=== PATIENT | male | born 1935 | race Caucasian/White ===

== ENCOUNTER 2016-10-25 11:08 | Inpatient (IN) | payer OTHER ==
[~2016-10-25] VITALS: Ht 185.4 cm; Wt 59.4 kg
[~2016-10-25 11:08] MED LIST: ALLERGY10 MG PO; CLARITIN10 MG PO; FERROUS SU220 MG/5 M PO; XALATAN 0.50 GTT/1 B OPH
--- NOTE | 2016-10-25 11:17 | ED MVC/FALL/TRAUMA COMPLAINT ---
History of Present Illness General Chief Complaint: Fall Stated Complaint: FALL Source: patient Exam Limitations: no limitations Vital Signs & Intake/Output Vital Signs & Intake/Output Vital Signs Date Time Temp Pulse Resp B/P Pulse O2 O2 Flow FiO2 Ox Delivery Rate 10/25 1357 98.5 80 18 109/58 95 Room Air 10/25 1229 Room Air 10/25 1211 99.5 87 16 102/52 95 Room Air Allergies Uncoded Allergies: SEASONAL (UNKNOWN 06/09/15) Reconcile Medications Ferrous Sulfate 220 MG/5 ML ROSEMAYR 5 ML PO DAILY ANEMIA (Reported) Triage Nurses Notes Reviewed? 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 ZAVALETA TODAY and which Dr. Martinez discussed with the event that occurred today which his oncologist stated that he did not look or feel well and advised patient to get evaluated however he adamantly refused this evaluation and after the appointment HE walking out of the office he suddenly became dizzy and lightheaded and which he subsequently lost his balance and fell to the left side of his body the ground and was staff emergently went to his aid denies any loss of consciousness or head strike. Patient states that symptoms lasted for approximate 1-2 minutes and have completely resolved. Patient was sent and brought in by ambulance from the office. Patient denies any pain from the episode (SHILA SCALES) Past History Medical History Any Pertinent Medical History? see below for history Neurological: NONE EENT: glaucoma Cardiovascular: NONE Respiratory: NONE Gastrointestinal: NONE Hepatic: NONE Renal: NONE Musculoskeletal: NONE Psychiatric: NONE Endocrine: NONE Blood Disorders: anemia Cancer(s): NONE DRESSAGE JUDGE/Reproductive: NONE Surgical History Surgical History: ANKLE SX Psychosocial History Who do you live with Spouse What is your primary language Estonian Family History Hx Contributory? No (SHILA SCALES) Review of Systems Review of Systems Constitutional: Reports: no symptoms. Eyes: Reports: no symptoms. Ears, Nose, Throat, Mouth: Reports: no symptoms. Respiratory: Reports: no symptoms. Cardiovascular: Reports: no symptoms. Gastrointestinal/Abdominal: Reports: no symptoms. Genitourinary: Reports: no symptoms. Musculoskeletal: Reports: no symptoms. Skin: Reports: no symptoms. Neurological/Psychological: Reports: no symptoms. All Other Systems: Reviewed and Negative (SHILA SCALES) Physical Exam Physical Exam General Appearance: no apparent distress, alert, cachetic Comments: HEENT: Normal EENT exam, extraocular motion intact, no nystagmus. Pupils equally round and reactive to light and accommodation. Nose is atraumatic. External auditory canal and Tympanic membranes clear. Pharynx normal. No swelling or edema. Neck: Supple, no lymphadenopathy, normal range of motion without pain or tenderness No central spinous tenderness Back: Nontender, no CVA tenderness. Full range of motion No central spinous tenderness Cardiovascular: Regular rate and rhythms no murmurs rubs or gallops, normal JVP Respiratory: Chest nontender. No respiratory distress.breath sounds clear to auscultation bilaterally Abdomen: Soft, nontender nondistended, no appreciable organomegaly. Normal bowel sounds. No ascites Extremity: No edema, no calf tenderness to palpation, normal and equal pulses. Bilateral upper extremity and lower extremity myotomes dermatomes intact Neuro: Alert oriented x3, motor sensory normal, cranial nerves II through XII grossly intact. Skin: No appreciable rash on exposed skin, skin is warm and dry. Psych: Mood and affect is normal, memory and judgment is normal. Normal steady gait noted Core Measures ACS in differential dx? Yes Severe Sepsis Present: No Septic Shock Present: No (SHILA SCALES) Progress Differential Diagnosis: aoritic dissection, abd injury, C/T/L spine injury, ext injury, ICH, pelvis injury, pnemothorax, spinal cord injury Diagnostic Imaging: Viewed by Me: Radiology Read. Radiology Impression: SEE COMMENTS CXR Impression: SEE COMMENTS Initial ED EK BPM NORMAL SINUS RHYTHM Comments: PATIENT: NICOLE SPEARS PRESENT AGE: 81 PATIENT ACCOUNT NO: [id number] : 36 LOCATION: [facility] ORDERING PHYSICIAN: SHILA ESPINOSA SERVICE DATE: 10/25/16 EXAM TYPE: RAD - XRY-CHEST XRAY, PA AND LATERAL EXAMINATION: XR CHEST CLINICAL INFORMATION: Fall COMPARISON: 07/18/2016 TECHNIQUE: AP and lateral views. FINDINGS: There is a redemonstrated chronic small pleural effusion, without change from 07/13/2016. There is hazy and patchy airspace opacity at the right lung base. There is a curvilinear density at the right apex, of uncertain etiology. No overt pulmonary edema. The cardiomediastinal contour is unremarkable. No acute osseous findings are seen. IMPRESSION: 1. Redemonstrated chronic small left pleural effusion. 2. Mild hazy/patchy right basilar opacity may reflect atelectasis or developing consolidation. 3. Curvilinear density at the right apex of uncertain etiology. This does not have the typical appearance for pneumothorax, though a trace pneumothorax is difficult to entirely exclude. If there is clinical concern for pneumothorax, an expiratory chest radiograph may be helpful. (ALFREDA ESPINOSA,SHILA) Plan of Care: Orders Procedure Date/time Status CBC WITHOUT DIFFERENTIAL 10/26 599 Active BASIC ELECTROLYTES PLUS BUN&CR 10/26 599 Active Regular Diet 10/25 D Active LACTIC ACID 10/25 1657 Active TRC EVALUATION (GEN) 10/25 1558 Active Pathway - chart 10/25 1558 Active House Staff 10/25 1558 Active URINALYSIS 10/25 1558 Active Code Status 10/25 1558 Active Saline Lock 10/25 1438 Active Misc Message 10/25 1438 Active ED Holding Orders 10/25 1438 Active Admit to inpatient 10/25 1438 Active Code Status 10/25 1438 Complete Patient Data 10/25 1419 Active Add-on Test (ER Only) 10/25 1357 Active LACTIC ACID 10/25 1357 Active LOWER RESPIRATORY CULTURE 10/25 1356 Active BLOOD CULTURE 10/25 1356 Active LACTIC ACID 10/25 1225 Complete Telemetry/Etymology Teacher 10/25 1134 Active FingerStick- Glucose 10/25 1134 Active TROPONIN LEVEL 10/25 1134 Complete MAGNESIUM 10/25 1134 Complete COMPREHENSIVE METABOLIC PANEL 10/25 1134 Complete CBC WITHOUT DIFFERENTIAL 10/25 1134 Complete EKG 10/25 1134 Active VTE Mechanical Prophylaxis 10/25 UNK Active Current Medications Sig/Gordon Start time Last Medication Dose Stop Time Status Admin Azithromycin 500 MG 1400 10/26 1400 AC (Zithromax) Sodium Chloride 250 ML (Normal Saline 0.9%) Ceftriaxone Sodium 1,000 MG 1400 10/26 1400 AC (Rocephin) Enoxaparin Sodium 40 MG 1600 10/25 1600 AC (Lovenox) Sodium Chloride 1,000 ML Q13H 10/25 1600 AC (Normal Saline 0.9%) 10/26 0459 Laboratory Tests 10/25/16 1225: Anion Gap 13, Estimated GFR > 60, BUN/Creatinine Ratio 21.1, Glucose 134 H, Lactic Acid 2.7 H, Calcium 8.9, Magnesium 2.1, Total Bilirubin 1.6 H, AST 52, ALT 32, Alkaline Phosphatase 106, Troponin I < 0.01, Total Protein 5.8 L, Albumin 3.1 L, Globulin 2.7, Albumin/Globulin Ratio 1.1, CBC w Diff NO MAN DIFF REQ, RBC 4.02 L, MCV 94.4 H, MCH 31.7 H, RDW 14.9 H, MPV 7.3 L, Gran % 80.9 H, Lymphocytes % 8.7 L, Monocytes % 10.0 H, Eosinophils % 0.1, Basophils % 0.3, Absolute Granulocytes 12.0 H, Absolute Lymphocytes 1.3, Absolute Monocytes 1.5 H, Absolute Eosinophils 0, Absolute Basophils 0.1, PUBS MCHC 33.6 Microbiology 10/25 1432 BLOOD: Blood Culture - RECD 10/25 1415 BLOOD: Blood Culture - RECD 10/25 1356 LOWER RESP: Respiratory Culture - ORD 10/25 1356 LOWER RESP: Gram Stain - ORD Patient on physical exam looks pale and cachectic in which there is concerns of a low-grade fever leukocytosis and concerns of pneumonia on x-ray. Patient has been complaining of general his weakness and fatigue and a cough in the past few days which patient will be admitted to [facility] and require IV antibiotics. I discussed disposition and plan with patient who agrees. Patient was able tolerate a meal in the emergency room and patient has nontender abdomen. (SHILA SCALES) Departure Departure Disposition: STILL A PATIENT Condition: Stable Clinical Impression Primary Impression: Pneumonia Secondary Impressions: Pre-syncope Referrals: PRANAY KELLER MD (PCP/Family) Departure Forms: Customer Survey General Discharge Information Admission Note Spoke With: LINDA ALTMAN MD Documentation of Exam: Documentation of any treatments & extenuating circumstances including Concerns Regarding Discharge (functional status, medication knowledge or non-compliance, living conditions, etc.) that warrant an admission rather than observation: [ Discussed patient with Dr. ALTMAN who agrees with [facility] admission for concerns of continued required pneumonia. Patient requires IV antibiotics, sputum and blood cultures currently are pending, outpatient treatment due to significant comorbidities and episode that occurred today and which outpatient treatment at this time would be medically harmful (SHILA SCALES) PA/PHYSICIAN ASSISTANT PRIMARY CARE Co-Sign Statement Statement: ED Attending supervision documentation- [x] I saw and evaluated the patient. I have also reviewed all the pertinent lab results and diagnostic results. I agree with the findings and the plan of care as documented in the PA's/PHYSICIAN ASSISTANT PRIMARY CARE's documentation. [] I have reviewed the ED Record and agree with the PA's/PHYSICIAN ASSISTANT PRIMARY CARE's documentation. [] Additions or exceptions (if any) to the PAs/PHYSICIAN ASSISTANT PRIMARY CARE's note and plan are summarized below: [] (FELIX PRESTON,SHELBIE Falcon) Critical Care Note Critical Care Note Critical Care Time: 30-74 min (SHILA SCALES)
--- NOTE | 2016-10-25 11:53 | NUR ---
PT RECIEVED TO [facility] , AWAKE, ALERT AND ORIENTED. DENIES CHEST PAIN OR SHORTNESS OF BREATH. STATES HE WAS AT CHEMOTHERAPY TODAY, FELT WEAK AND COLLAPSED. DENIES LOC
--- NOTE | 2016-10-25 12:11 | NUR ---
PT ATTACHED TO HEART MONITOR AND VITALS OBTAINED
--- NOTE | 2016-10-25 12:28 | NUR ---
PT GIVEN MEAL TRAY TO EAT
[2016-10-25 12:38] LABS: ABSOLUTE BASOPHIL COUNT 0.1 /CUMM (0.0-0.2); ABSOLUTE EOSINOPHIL COUNT 0 /CUMM (0.0-0.7); ABSOLUTE LYMPH COUNT 1.3 /CUMM (1.2-3.4); ABSOLUTE MONOCYTE COUNT 1.5 /CUMM (0.10-0.60); BASOPHIL % 0.3 % (0.0-2.0); EOSINOPHIL % 0.1 % (0-5); HEMATOCRIT 37.9 % (42-52); MEAN CORPUSCULAR HGB 31.7 PG (27.0-31.0); MEAN CORPUSCULAR HGB CONC 33.6 G/DL (33.0-37.0); MEAN CORPUSCULAR VOLUME 94.4 FL (80.0-94.0); MEAN PLATELET VOLUME 7.3 FL (7.4-10.4); PLATELET COUNT 159 /CUMM (130-400); RBC DISTRIBUTION WIDTH 14.9 % (11.5-14.5); RED BLOOD CELL CT 4.02 /CUMM (4.70-6.10); WHITE BLOOD CELL COUNT 14.9 /CUMM (4.8-10.8)
[2016-10-25 12:43] LABS: GRANULOCYTE % 80.9 % (42.2-75.2)
--- NOTE | 2016-10-25 13:01 | NUR ---
PT SENT FOR XRAY
--- NOTE | 2016-10-25 13:42 | RADIOLOGY REPORT ---
EXAMINATION: XR CHEST CLINICAL INFORMATION: Fall COMPARISON: 07/18/2016 TECHNIQUE: AP and lateral views. FINDINGS: There is a redemonstrated chronic small pleural effusion, without change from 07/13/2016. There is hazy and patchy airspace opacity at the right lung base. There is a curvilinear density at the right apex, of uncertain etiology. No overt pulmonary edema. The cardiomediastinal contour is unremarkable. No acute osseous findings are seen. IMPRESSION: 1. Redemonstrated chronic small left pleural effusion. 2. Mild hazy/patchy right basilar opacity may reflect atelectasis or developing consolidation. 3. Curvilinear density at the right apex of uncertain etiology. This does not have the typical appearance for pneumothorax, though a trace pneumothorax is difficult to entirely exclude. If there is clinical concern for pneumothorax, an expiratory chest radiograph may be helpful.
--- NOTE | 2016-10-25 13:56 | NUR ---
SEEN BY DR WASHINGTON AND JESÚS GANT. PT AGREES TO PLAN TO ADMIT TO HOSPITAL FOR TREATMENT OF PNEUMONIA
--- NOTE | 2016-10-25 14:23 | NUR ---
BLOOD CULTURES DRAWN.
--- NOTE | 2016-10-25 14:24 | NUR ---
CRITICAL TEST RESULTS [id number] NICOLE SPEARS 81 M TESTS AND RESULTS: LACTIC ACID 2.7 Results received and read back by: SARTHAK BURKS Results received date and time: 10/25/16 1424 The following provider was notified of the results, and read the results back: SHILA ESPINOSA Notified date and time: 10/25/16 at 1424
--- NOTE | 2016-10-25 14:40 | History & Physical ---
GISELLE PRESTON,SULTANA 10/25/16 1440: General Information and HPI MD Statement: I have seen and personally examined NICOLE SPEARS and documented this H&P. The patient is a 81 year old M who was sent to the emergency department from Dr. Costa's office after sustaining a fall. Source of Information: patient Exam Limitations: no limitations History of Present Illness: 81 yo M with past medical history of follicular lymphoma status post chemotherapy (following Dr. Chen), and anemia, was sent to the emergency department from Dr. Chen's office earlier today after sustaining a fall injury. According to patient, he has been feeling weak on and off, but since past 2 weeks his weakness has increased. He also had cough since past 2 weeks- which was initially productive with "orange" colored sputum progressively getting "white", associated with shortness of breath. The symptoms were progressively worsening, and he was due his follow-up with Dr. Chen today, where he mentioned his symptoms but refused this suggestion to have it evaluated in the emergency department. As he was walking to sign out from the office, he tried sitting on a sofa but due to weakness he slightly "missed" it, and fell, on his left side of his body. He denies loss of consciousness, head strike, dizziness, palpitation, chest pain, nausea, vomiting, lightheadedness. Physician's office staff then referred him to the emergency department. He has been following Dr. Chen for follicular lymphoma and chemotherapy. The condition was diagnosed 2 years ago and he has received around 6 cycles of chemotherapy since then, last one being 3 months ago. Allergies/Medications Allergies: Uncoded Allergies: SEASONAL (UNKNOWN 06/09/15) Home Med list Ferrous Sulfate 220 MG/5 ML ROSEMARY 5 ML PO DAILY ANEMIA (Reported) Past History Travel History Traveled to [place] past 21 day No Medical History Neurological: NONE EENT: glaucoma Cardiovascular: NONE Respiratory: NONE Gastrointestinal: NONE Hepatic: NONE Renal: NONE Musculoskeletal: NONE Psychiatric: NONE Endocrine: NONE Blood Disorders: anemia Cancer(s): leukemia MEASUREMENT SPECIALIST/Reproductive: NONE Surgical History Surgical History: ANKLE SX Past Family/Social History Psychosocial History Where do you live? Home Who Do You Live With? spouse, grandchildren Primary Language: Emirati ETOH Use: occasional use Illicit Drug Use: denies illicit drug use Functional Ability ADLs Independent: dressing, eating, toileting, bathing. Ambulation: independent Employment History Employment Unemployed Review of Systems Review of Systems Constitutional: Reports: see HPI, weakness. Denies: chills, diaphoresis, fever, unexplained weight loss. EENTM: Reports: no symptoms. Cardiovascular: Reports: see HPI, orthopena. Denies: chest pain, edema, palpitations, peripheral edema, syncope. Respiratory: Reports: see HPI, cough, orthopnea, short of breath, sputum production. Denies: hemoptysis, stridor, wheezing. GI: Reports: no symptoms. Genitourinary: Reports: no symptoms. Musculoskeletal: Reports: see HPI (weakness all over the body). Skin: Reports: no symptoms. Neurological/Psychological: Reports: no symptoms. Hematologic/Endocrine: Reports: no symptoms. All Other Systems: Reviewed and Negative Exam & Diagnostic Data Last 24 Hrs of Vital Signs/I&O Vital Signs Date Time Temp Pulse Resp B/P Pulse O2 O2 Flow FiO2 Ox Delivery Rate 10/25 1357 98.5 80 18 109/58 95 Room Air 10/25 1229 Room Air 10/25 1211 99.5 87 16 102/52 95 Room Air Intake & Output 10/25 1600 10/25 0800 10/25 0000 Intake Total Output Total Balance Patient 59.874 kg Weight Last 24 Hrs of Labs/Mando: Laboratory Tests 10/25/16 1225: Anion Gap 13, Estimated GFR > 60, BUN/Creatinine Ratio 21.1, Glucose 134 H, Lactic Acid 2.7 H, Calcium 8.9, Magnesium 2.1, Total Bilirubin 1.6 H, AST 52, ALT 32, Alkaline Phosphatase 106, Troponin I < 0.01, Total Protein 5.8 L, Albumin 3.1 L, Globulin 2.7, Albumin/Globulin Ratio 1.1, CBC w Diff NO MAN DIFF REQ, RBC 4.02 L, MCV 94.4 H, MCH 31.7 H, RDW 14.9 H, MPV 7.3 L, Gran % 80.9 H, Lymphocytes % 8.7 L, Monocytes % 10.0 H, Eosinophils % 0.1, Basophils % 0.3, Absolute Granulocytes 12.0 H, Absolute Lymphocytes 1.3, Absolute Monocytes 1.5 H, Absolute Eosinophils 0, Absolute Basophils 0.1, PUBS MCHC 33.6 Microbiology 10/25 1432 BLOOD: Blood Culture - RECD 10/25 1415 BLOOD: Blood Culture - RECD 10/25 1356 LOWER RESP: Respiratory Culture - ORD 10/25 135 LOWER RESP: Gram Stain - ORD Diagnostic Data EKG Results Sinus rhythm with rate 89, no ST-T changes CXR Results IMPRESSION: 1. Redemonstrated chronic small left pleural effusion. 2. Mild hazy/patchy right basilar opacity may reflect atelectasis or developing consolidation. 3. Curvilinear density at the right apex of uncertain etiology. This does not have the typical appearance for pneumothorax, though a trace pneumothorax is difficult to entirely exclude. If there is clinical concern for pneumothorax, an expiratory chest radiograph may be helpful. DICTATED BY: ANDRAE VALADEZ MD DATE/TIME DICTATED:10/25/161326 PETROLEUM REFINING FIRER:VIJAYA DATE/TIME TRANSCRIBED:10/25/161326 Other Results Physical examnination: General: thin buit patient not in distress Head: Normocephalic, atraumatic Eyes: Pupils normal in size, regular, reacting to light and accommodation, EOM normal Ears: B/l normal on inspection Nose: Normal on inspection Throat/mouth: Moist mucosa Neck: Supple, full range of motion, no thyromegaly Heart: Regular rate, regular rhythm Lung: Bilateral crepitations heard, more over the right lung field, no wheezes heard Abd: Soft, non-tender, no distention appreciated Back: Normal range of motion Extremities: Normal knee exam bilaterally, no pedal edema, Distal neurovascular intact Neurologic: Alert, oriented x3, Cranial exam grossly intact, Speech is clear and coherent Skin: Warm and dry Psychiatric: Calm, cooperative, coherant Assessment/Plan Assessment: 81 yo M with past medical history of follicular lymphoma status post chemotherapy (following Dr. Chen), and anemia, was sent to the emergency department from Dr. Chen's office earlier today after sustaining a fall injury , which he attributes to weakness. In the emergency department his vitals were: Temperature 99.5, pulse 87, respirations 16, blood pressure 102/52, oxygen saturation 95% on room air. #Community-acquired pneumonia The symptoms of cough with sputum production, shortness of breath with radiologic finding of right basilar opacity is suggestive of community-acquired pneumonia. -Regular monitoring to make sure that oxygen saturation is above 92% -IV antibiotics to cover bacteria for complete record pneumonia -Follow-up blood cultures and sputum cultures -Follow-up in rapid influenza test, urine Legionella and Streptococcus test -Can consider pulmonary consultation if patient's symptoms does not improve despite current treatment plan #Folliclar lymphoma Follicular lymphoma was diagnosed 2 years ago, the patient received 6 cycles of chemotherapy with the latest one being 6 months ago according to the patient himself. -Oncology notification with Dr. Chen (his oncologist) will be placed for the morning as a courtesy #History of Anemia Not present, currently Hb 14.9 #Protein calorie Malnutrition -Patient's BMI is 16.9 kg/m, that is malnutrition with albumin 3.1 and total protein 5.8 which are both low. -Nutrition consult can be planned for the patient #Diet: Regular diet #DVT prophylaxis: Lovenox #CODE STATUS: DO NOT RESUSCITATE/ DO NOT INTUBATE As Ranked By This Provider Problem List: 1. CAP (community acquired pneumonia) 2. Follicular lymphoma 3. Anemia Core Measures/Miscellaneous Acute Coronary Syndrome ACS Diagnosis: No Cerebrovascular Accident CVA/TIA Diagnosis: No Congestive Heart Failure CHF Diagnosis: No Venous Thromboembolism VTE Risk Factors: Age > 40, Cancer/chemo/oth therapy, Smoking VTE Prophylaxis Ordered Inpt: [facility] prophylaxis d/t: No contraindications No VTE Pharm Prophylaxis d/t: No contraindications VTE Diagnosis: No VTE Type: NONE VTE Confirmed by (Test): NONE Severe Sepsis Severe Sepsis Present: No Septic Shock Septic Shock Present: No Miscellaneous Documentation Attending Case Discussed With: PHILLIP ROBERTS MD Primary Care Physician: PRANYA KELLER MD Patient sees these Specialists Internal medicine Hematology oncology Level of Patient Care: General Medicine GAURANG KELLER MD 10/25/16 2150: Resident Review Statement Resident Statement: examined this patient, discussed with summer internship, agreed with summer internship, discussed with family, reviewed EMR data (avail) Other Findings: 81 yo M with past medical history of follicular lymphoma diagnosed 2 yrs ago status post chemotherapy (following Dr. Chen), last one about 3 month ago and anemia, was sent to the emergency department from Dr. Chen's office earlier today after sustaining a fall injury. Pt has been c/o weakness and shortness worse form his baseline. Otherwise denies fever, chills, sick contacts. O/e alert, oriented, comfortable CVS: S1, S2 regular RS: b/l BS present. Crackles present on the right side ABd: Soft, NT,ND, BS present Ext: No pedal edema. Assessment and plan: 89 yrs old male with PMHx of follicular lymphoma admitted with weakness, worsening shortness of breath with cough. X ray suggestive of consoidation. Labs showed increase WBC's with lactic acidosis. 1. Severe sepsis ( lactic acidosis > 2mm/l with new infection source) 2. Fall secondary to weakness vs orthostatic hypotension 3. Hyponatremia 4. Isolated elevation of bilirubin could be due to dehydration 5. Follicular lymphoma Pt admitted to floor. VItals stable on admission Start abx for CAP pending cultures. We will check UA Start IV fluids @ 75 cc/hr Will check orthostatic vitals Will add on serum osmolarity and further work up based on osm. UA after IV fluids will be of no value to assess hyponatremia. TRC nebs DVT ppx with Lovenox DNR/DNI PHILLIP ROBERTS MD 10/26/16 1235: Attending MD Review Statement Attending Statement Attending MD Statement: examined this patient, discuss w/resident/PA/FUR LINER, agreed w/resident/PA/FUR LINER, reviewed EMR data (avail) Attending Assessment/Plan: 81M PMH follicular lymphoma last chemotherapy 3 months ago sent from loan teller office for generalized weakness and productive cough, found to have CAP on CXR. Patient appears weak and sleepy. Afebrile. BP 100/48 today, given 2L NS. Will continue IV hydration, Ceftriaxone and Azithromycin, follow cultures, check TFTs, Vitamin D, PT eval.
--- NOTE | 2016-10-25 15:26 | NUR ---
SEEN BY HOUSE STAFF. PT RESTING COMFORTABLY IN [facility]. NOW AT BEDSIDE
--- NOTE | 2016-10-25 15:27 | NUR ---
RT CALLED TO OBTAIN LOWER RESP CULTURE. PT WITH NON PRODUCTIVE COUGH
--- NOTE | 2016-10-25 16:14 | PN- Student ---
Subjective Subjective: Chief Complaint: Fall Hx of Present Illness: The patient is a 81 y/o male with a history of lymphoma. He was brought to the ER in an Ambulance due to a fall. The patient states that he was going to sit down on his couch and suddenly "he lost it" and didn't reach it, hence falling on his left side. The patient denies any loss of consciousness during the incident and also denies that he felt any dizzines as well. On evaluation he didn't expressed any type of pain or discomfort. He also complained if having a productive cough which started a few days ago. He described the initial sputum as orange in color but stated that currently it is clear in appareance. No audible stridor or wheezes were perceived while taking the history. Allergies; None Current Medications; Ferrous Sulfate (220 mg/5 mL 5 mL PO Daily for Anemia) Latanoprost (50 GTT/1 Bot GTT for Glaucoma) Loratadine (10 mg) Past Medical Hx: Eyes- Glaucoma Heme/Onc- Lymphoma The patient has a significant cancer Hx (Lymphoma) and has received around half a dozen rounds of chemotherapy. Social/Diet Hx: Smoking Hx- The patient smoked around 70 years 6 cigars/day. EtOH- Former heavy drinker but now just consumes just 3 beers on Sundays. 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 Physical Activity- The patient doesn't use any type of walking-assiting device. Objective Objective: Physical Examination: General: Patient is 81 y/o M that presented to the ER with mild respiratory distress. The patient is in appropriate attire, under-noursihed (BMI 16.9) and alert. H: Not assessed E: Not assessed E: Not assessed N: Not assessed T: Not assessed Neck: Not assessed Mouth: Not assessed. Lungs: Crackles were heard in the R lung at the R paraspinal area. CV: Normal S1, Normal S2, no murmurs. GI: Not assessed Genitourinary: Not assessed MSK: Not assessed Upper Extremities: Not assessed Lower Extremities: No signs of edema. Neurological: Normal Speech. Additional Notes: Awareness should be given to the cancerous state of the patient. Monitor potential cachexia, anorexia and muscle weakness. Results Results: Laboratory Tests 10/25/16 1225: Anion Gap 13, Estimated GFR > 60, BUN/Creatinine Ratio 21.1, Glucose 134 H, Lactic Acid 2.7 H, Calcium 8.9, Magnesium 2.1, Total Bilirubin 1.6 H, AST 52, ALT 32, Alkaline Phosphatase 106, Troponin I < 0.01, Total Protein 5.8 L, Albumin 3.1 L, Globulin 2.7, Albumin/Globulin Ratio 1.1, CBC w Diff NO MAN DIFF REQ, RBC 4.02 L, MCV 94.4 H, MCH 31.7 H, RDW 14.9 H, MPV 7.3 L, Gran % 80.9 H, Lymphocytes % 8.7 L, Monocytes % 10.0 H, Eosinophils % 0.1, Basophils % 0.3, Absolute Granulocytes 12.0 H, Absolute Lymphocytes 1.3, Absolute Monocytes 1.5 H, Absolute Eosinophils 0, Absolute Basophils 0.1, PUBS MCHC 33.6 Microbiology 10/25 1432 BLOOD: Blood Culture - RECD 10/25 1415 BLOOD: Blood Culture - RECD 10/25 1356 LOWER RESP: Respiratory Culture - ORD 10/25 1356 LOWER RESP: Gram Stain - ORD Vital Signs Date Time Temp Pulse Resp B/P Pulse O2 O2 Flow FiO2 Ox Delivery Rate 10/25 1357 98.5 80 18 109/58 95 Room Air 10/25 1229 Room Air 10/25 1211 99.5 87 16 102/52 95 Room Air Intake & Output 10/25 1600 10/25 0800 10/25 0000 Intake Total Output Total Balance Patient 132 lb Weight Assessment/Plan Assessment: Patient is a 81 y/o M with a PMHx of Lymphoma. The patient came in to the ER due to a fall that happened at 11:30 am of the admitance date (10/25/16). Vital signs are within the reference values, the patient is afebrile and is only presenting mild respiratory distress. The patient also complaint of SOB and productive cough that has been ongoing for several days. Patient Impression: The patient is currently on mild respiratory distress and in preparation to be admitted for Tx for Community-Acquired Pneumonia. Diagnosis: Community-Acquired Pneumonia Problem List: 1) SOB 2) Fall surveilance 3) Possible weakness due to cancerous course Plan: - Admitt the patient. - Administer Antibiotics; Azithromycin 500mg IV per day. - Contact Physical Therapist to assess gait and work up on fall prevention. - If Oxygen saturation drops and patient becomes hypoxic administer Oxygen via Nasal Canula (3 mL/min). - Schedule Reports Developer consult to assess BMI and current dietetic status. - Oncologic consultation and follow up with oncologist (Dr. Costa). - Follow up on Blood and Sputum Cultures.
--- NOTE | 2016-10-25 16:59 | NUR ---
LEFT FOREARM IV INFILTRATED AND FOREARM AND ELBOW AREA ARE RED AND EDEMATOUS. IV STOPPED AND WARM COMPRESS APPLIED
--- NOTE | 2016-10-25 17:05 | NUR ---
WARM COMPRESS PLACED ON LEFT ARM IV INFILTRATE
--- NOTE | 2016-10-25 17:44 | NUR ---
LEFT ARM COMPRESS RE WARMED. INFILTRATE WITH DECREASED REDNESS AND EDEMA NOTED. PT STATES IT IS LOOKING BETTER TO HIM AND LESS PAINFUL
--- NOTE | 2016-10-25 18:30 | NUR ---
MOVED TO ROOM 9.
--- NOTE | 2016-10-25 18:31 | NUR ---
PT WILL GO TO ROOM 230-1, IS NOT READY YET
--- NOTE | 2016-10-25 18:41 | NUR ---
PT INFORMED HE IS BEING MOVED TO INPATIENT ROOM. PT REQUESTING TO STAY DRESSED IN STREET CLOTHES UNTIL HE GETS TO ROOM
--- NOTE | 2016-10-25 19:22 | NUR ---
REPORT CALLED TO SECOND FLOOR. SHARIF ROTHMAN
--- NOTE | 2016-10-25 19:43 | NUR ---
TRANSPORT HERE FOR PT
[2016-10-25 20:23] VITALS: BP 128/60
--- NOTE | 2016-10-25 22:20 | NUR ---
PT ARRIVED TO FLOOR AT 1950. VSS, PT COMFORTABLE. LACTIC ACID DRAWN AND CAME BACK 3.4. MD REDDY NOTIFIED. PT BOLUSED WITH 1000 ML OF FLUIDS AND RECEIVING HYDRATION OF 75 ML/HR OF NS. VS CURRENTLY STABLE
[2016-10-25 22:47] VITALS: BP 128/60
[2016-10-26] VITALS (7 sets, daily range): BP systolic 96–118; BP diastolic 36–50
--- NOTE | 2016-10-26 06:50 | PN- Housestaff ---
GISELLE PRESTON,SULTANA 10/26/16 0650: Subjective Follow-up For: Weakness, community-acquired pneumonia Complaints: weakness Subjective: I followed up and examined the patient today. He was lying on the bed, was not in any acute distress, but seemed listless. When questioned, he said his weakness was just the same and not better or worse. He had not come out of the bed, and had refused to check orthostatic blood pressures either. Blood pressure was low this morning, but he did not have any dizziness, headache , chest pain, shortness of breath. Review of Systems Constitutional: Reports: see HPI, malaise, weakness. EENTM: Reports: no symptoms. Cardiovascular: Reports: no symptoms. Respiratory: Reports: cough, sputum production. Gastrointestinal: Reports: no symptoms. Genitourinary: Reports: no symptoms. Musculoskeletal: Reports: no symptoms. Skin: Reports: no symptoms. Neurological/Psychological: Reports: no symptoms. Hematologic/Endocrine: Reports: no symptoms. Objective Last 24 Hrs of Vital Signs/I&O Vital Signs Date Time Temp Pulse Resp B/P Pulse O2 O2 Flow FiO2 Ox Delivery Rate 10/26 1449 98.2 96 18 98/42 92 Room Air 10/26 1446 98.9 92 18 96/50 93 Room Air 10/26 1027 110/48 10/26 0928 98 18 110/48 92 Room Air 10/26 0824 98.6 96 18 102/44 90 Room Air 10/26 0711 98.6 102 20 118/50 93 Room Air 10/25 2247 97.5 92 20 128/60 95 Room Air 10/25 2023 97.4 92 20 128/60 95 Room Air 10/25 1852 Nasal 2.0L Cannula 10/25 1831 98.7 83 18 96/50 98 Room Air Intake & Output 10/26 1600 10/26 0800 10/26 0000 Intake Total 4300 2700 Output Total 200 Balance 4300 2500 Intake, IV 2500 2400 Intake, Oral 1800 300 Number 1 Bowel Movements Output, Urine 200 Patient 59.421 kg 59.874 kg Weight Physical Exam General Appearance: Alert, Oriented X3, Cooperative, No Acute Distress, lethargic, thin built Other Physical Findings: Physical examnination: General: thin buit patient not in distress Head: Normocephalic, atraumatic Eyes: Pupils normal in size, regular, reacting to light and accommodation, EOM normal Ears: B/l normal on inspection Nose: Normal on inspection Throat/mouth: Moist mucosa Neck: Supple, full range of motion, no thyromegaly Heart: Regular rate, regular rhythm Lung: Bilateral crepitations heard, more over the right lung field, no wheezes heard Abd: Soft, non-tender, no distention appreciated Back: Normal range of motion Extremities: Normal knee exam bilaterally, no pedal edema, Distal neurovascular intact Neurologic: Alert, oriented x3, Cranial exam grossly intact, Speech is clear and coherent Skin: Warm and dry Psychiatric: Calm, cooperative, coherant Current Medications: Current Medications Sig/Gordon Start time Last Medication Dose Route Stop Time Status Admin Albuterol Sulfate 3 ML Q4-PRN PRN 10/25 1900 AC INH Azithromycin 500 MG 1400 10/26 1400 AC 10/26 Sodium Chloride 250 ML IV 1236 Ceftriaxone Sodium 1,000 MG 1400 10/26 1400 AC 10/26 IV 1236 Dextrose/Sodium 1,000 ML Q13H 10/26 1330 AC 10/26 Chloride IV 1427 Enoxaparin Sodium 0 .STK-MED ONE 10/25 1839 DC SC Enoxaparin Sodium 40 MG 1600 10/25 1600 AC 10/26 SC 1647 Ferrous Sulfate 325 MG DAILY 10/26 1000 AC 10/26 PO 0833 Patient Medication 1 ED .STK-MED ONE 10/26 1344 DC Teaching ED 10/26 1345 Sodium Chloride 1,000 ML BOLUS ONE 10/26 0930 DC 10/26 IV 10/26 1029 0933 Sodium Chloride 1,000 ML BOLUS ONE 10/26 0830 DC 10/26 IV 10/26 0929 0832 Sodium Chloride 1,000 ML BOLUS ONE 10/25 2215 DC 10/25 IV 10/25 2314 2217 Sodium Chloride 1,000 ML Q13H 10/25 1600 DC 10/25 IV 10/26 0459 2014 Last 24 Hrs of Lab/Mando Results Last 24 Hrs of Labs/Mics: Laboratory Tests 10/26/16 0600: Anion Gap 12, Estimated GFR > 60, BUN/Creatinine Ratio 20.0, CBC w Diff NO MAN DIFF REQ, RBC 3.22 L, MCV 94.9 H, MCH 32.1 H, RDW 15.1 H, MPV 7.8, Gran % 72.9, Lymphocytes % 16.0 L, Monocytes % 10.8 H, Eosinophils % 0, Basophils % 0.3, Absolute Granulocytes 8.6 H, Absolute Lymphocytes 1.9, Absolute Monocytes 1.3 H, Absolute Eosinophils 0, Absolute Basophils 0, PUBS MCHC 33.8 10/26/16 0223: Lactic Acid Cancelled 10/25/16 2335: Lactic Acid 1.5 10/25/16 2145: Urine Color YEL, Urine Clarity CLEAR, Urine pH 6.0, Ur Specific [place] 1.025, Urine Protein TRACE H, Urine Ketones NEG, Urine Nitrite NEG, Urine Bilirubin NEG, Urine Urobilinogen 0.2, Ur Leukocyte Esterase NEG, Ur Microscopic SEDIMENT EXAMINED, Urine RBC 3-5, Urine WBC 5-10 H, Ur Epithelial Cells MOD H, Urine Crystals RARE [place], Hyaline Casts RARE H, Urine Hemoglobin SMALL H, Urine Glucose NEG 10/25/16 2105: Lactic Acid 3.4 H 10/25/16 1747: Lactic Acid 1.5 Microbiology 10/26 1514 URINE ROUT: Legionella Antigen - COLB 10/26 151 URINE ROUT: Streptococcus pneumoniae Antigen (M - COLB Assessment/Plan Assessment: 81 yo M with past medical history of follicular lymphoma status post chemotherapy (following Dr. Chen), and anemia, was sent to the emergency department from Dr. Chen's office earlier today after sustaining a fall injury , which he attributes to weakness. In the emergency department his vitals were: Temperature 99.5, pulse 87, respirations 16, blood pressure 102/52, oxygen saturation 95% on room air. He is being managed in the general medical floor for the following issues: #Community-acquired pneumonia The symptoms of cough with sputum production, shortness of breath with radiologic finding of right basilar opacity is suggestive of community-acquired pneumonia. -Regular monitoring to make sure that oxygen saturation is above 92% -IV antibiotics to cover bacteria for complete record pneumonia Ceftriaxone, and Azithromycin -Follow-up blood cultures and sputum cultures -Follow-up in rapid influenza test, urine Legionella and Streptococcus test -Can consider pulmonary consultation if patient's symptoms does not improve despite current treatment plan #Folliclar lymphoma Follicular lymphoma was diagnosed 2 years ago, the patient received 6 cycles of chemotherapy with the latest one being 6 months ago according to the patient himself. -Oncology notification with Dr. Chen (his oncologist) was placed for the morning as a courtesy. #Hypotension Patient had an episode of blood pressure 96/50 this morning, to which serially 1 L normal saline and again 1 L normal saline was given as a bolus IV and recheck blood pressure was 98/42 with a heart rate of 96. Patient does not have any symptoms, has been feeding modestly, although fluid intake is adequate. -Question remains whether the patient's blood pressure is always on the lower range. -IV fluid with D5 half normal saline has been started at 75 mL per hour, plan to continue it #History of Anemia Currently 10.3 from 12.7 -no obvious source of bleeding, needs workup if still decreasing in tomorrow's labs. Including but not limited to [place]. -Check CBC tomorrow. #Protein calorie Malnutrition -Patient's BMI is 16.9 kg/m, that is malnutrition with albumin 3.1 and total protein 5.8 which are both low. -Nutrition consult was placed, needs follow-up #Diet: Regular diet #DVT prophylaxis: Lovenox #CODE STATUS: DO NOT RESUSCITATE/ DO NOT INTUBATE Problem List: 1. CAP (community acquired pneumonia) 2. Follicular lymphoma 3. Hypotension 4. 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 Patient appears weak and sleepy. Afebrile. BP 100/48 today, given 2L NS. Will continue IV hydration, Ceftriaxone and Azithromycin, follow cultures, check TFTs, Vitamin D, PT eval.
[2016-10-26 08:02] LABS: ABSOLUTE BASOPHIL COUNT 0 /CUMM (0.0-0.2); ABSOLUTE EOSINOPHIL COUNT 0 /CUMM (0.0-0.7); ABSOLUTE GRANULOCYTE CT 8.6 /CUMM (1.4-6.5); ABSOLUTE LYMPH COUNT 1.9 /CUMM (1.2-3.4); ABSOLUTE MONOCYTE COUNT 1.3 /CUMM (0.10-0.60); BASOPHIL % 0.3 % (0.0-2.0); EOSINOPHIL % 0 % (0-5); GRANULOCYTE % 72.9 % (42.2-75.2); MEAN CORPUSCULAR HGB 32.1 PG (27.0-31.0); MEAN CORPUSCULAR HGB CONC 33.8 G/DL (33.0-37.0); MEAN CORPUSCULAR VOLUME 94.9 FL (80.0-94.0); MEAN PLATELET VOLUME 7.8 FL (7.4-10.4); PLATELET COUNT 110 /CUMM (130-400); RBC DISTRIBUTION WIDTH 15.1 % (11.5-14.5); RED BLOOD CELL CT 3.22 /CUMM (4.70-6.10); WHITE BLOOD CELL COUNT 11.7 /CUMM (4.8-10.8)
--- NOTE | 2016-10-26 08:26 | NUR ---
THIS RN RETOOK PATIENTS VITAL SIGNS [facility] NOTIFIED THAT PT'S BP IS LOW. VITALS AT THIS TIME ARE 102/44 BP, 96 HR, 18RR, 98.6 TEMP, 90% RA. ATTEMPTED TO DO ORHTOSTATIC VITALS BUT PATIENT DOES NOT WANT TO GET UP AT THIS TIME AND VERBALIZES WEAKNESS. DR. LAZARO MERLOS NOTIFIED AND AT THE BEDSIDE AT THIS TIME. PER GAURANG, BOLUS PATIENT WITH 1 LITER OF NS AND FOLLOW CLOSELY. WILL RECHECK BP AFTER BOLUS. WILL MONITOR PATIENT.
[2016-10-26 08:50] LABS: HEMATOCRIT 30.5 % (42-52)
--- NOTE | 2016-10-26 09:30 | NUR ---
FIRST BOLUS (1L) NS FINISHED. DR. LAZARO MERLOS NOTIFIED THAT PT'S BP AT THIS TIME IS 110/48, 92RA 98HR. PATIENT DENIES DIZZINESS, N/V. NO CHANGE IN MENTAL STATUS AT THIS TIME. PER MD, TO GIVE ANOTHER BOLUS AND RECHECK BP. IN THE MEANTIME, WILL FOLLOW PATIENT CLOSELY FOR ANY S/S OF OVERLOAD.
--- NOTE | 2016-10-26 23:02 | RADIOLOGY REPORT ---
EXAMINATION: XR PORTABLE CHEST CLINICAL INFORMATION: Fever. Increasing oxygen requirement. COMPARISON: Chest x-ray 10/25/2016., 07/20/2015 CT of chest 07/18/2016 TECHNIQUE: Portable view of the chest was obtained. FINDINGS: Chronic volume loss of the left hemithorax stable since prior exam. There is persistent chronic density at the left lung base due to a left pleural effusion as seen on CT of chest 07/18/2016.. The right costophrenic angle is now also blunted due to a small right pleural effusion. Increased pulmonary vascularity centrally new since prior exam. Hazy opacity right lung base probably due to the effusion and increased vascularity but a subtle right basilar infiltrate not excluded. IMPRESSION: 1. Chronic density left lung base due to left pleural effusion. 2. New small right pleural effusion. 3. Increased central pulmonary vascularity. 4. Hazy opacity right lung base could be due to the right pleural effusion and increased vascularity but a subtle right basilar infiltrate not excluded.
--- NOTE | 2016-10-26 23:03 | NUR ---
BP 100/36 PER MST, RECHECKED AT 120/34, AFIBRILE, BUT WARM TO TOUCH. RECTAL TEMP OF 100.8. DR. AVALOS MADE AWARE AND PER PT ASKED TO CALL DR. CAIN, PT'S DOCTOR FROM [place]. NEW ORDERS FOR SPUTUM SAMPLE AND CXR. O2 ALSO DECREASED TO 89% ON RA. O2 INITATED AT 2L/MIN NC WITH 92 % O2 SAT. PT RESTING WITH EYES CLOSED, ASYMPTOMATIC. CONT TO MONITOR RESPIRATORY STATUS.
[2016-10-27 06:13] VITALS: BP 100/34
[2016-10-27 08:00] LABS: ABSOLUTE BASOPHIL COUNT 0 /CUMM (0.0-0.2); ABSOLUTE EOSINOPHIL COUNT 0 /CUMM (0.0-0.7); ABSOLUTE GRANULOCYTE CT 5.5 /CUMM (1.4-6.5); ABSOLUTE LYMPH COUNT 1.2 /CUMM (1.2-3.4); ABSOLUTE MONOCYTE COUNT 0.9 /CUMM (0.10-0.60); BASOPHIL % 0.3 % (0.0-2.0); EOSINOPHIL % 0.1 % (0-5); GRANULOCYTE % 71.3 % (42.2-75.2); HEMATOCRIT 27.2 % (42-52); MEAN CORPUSCULAR HGB 32.5 PG (27.0-31.0); MEAN CORPUSCULAR HGB CONC 34.8 G/DL (33.0-37.0); MEAN CORPUSCULAR VOLUME 93.3 FL (80.0-94.0); MEAN PLATELET VOLUME 8.2 FL (7.4-10.4); PLATELET COUNT 91 /CUMM (130-400); RBC DISTRIBUTION WIDTH 14.9 % (11.5-14.5); RED BLOOD CELL CT 2.92 /CUMM (4.70-6.10); WHITE BLOOD CELL COUNT 7.7 /CUMM (4.8-10.8)
--- NOTE | 2016-10-27 09:56 | PN- Housestaff ---
SLOAN ROSENBERG 10/27/16 0956: Subjective Follow-up For: CAP follicular lymphoma Subjective: seen and examined patient, does not offer any complaints. Denies chills, chest pain, shortness of breath. Review of Systems Constitutional: Denies: chills, diaphoresis, fever, malaise, weakness, unexplained weight loss. Cardiovascular: Denies: chest pain, edema, orthopena, palpitations, peripheral edema, syncope. Respiratory: Denies: cough, hemoptysis, orthopnea, short of breath, sputum production, stridor, wheezing. Objective Last 24 Hrs of Vital Signs/I&O Vital Signs Date Time Temp Pulse Resp B/P Pulse O2 O2 Flow FiO2 Ox Delivery Rate 10/27 0848 91 Nasal 2.0L Cannula 10/27 06 98.7 82 20 100/34 92 Room Air 10/27 0000 Nasal 2.0L Cannula 10/26 2212 100.8 90 18 100/36 94 Room Air 10/26 1449 98.2 96 18 98/42 92 Room Air 10/26 1446 98.9 92 18 96/50 93 Room Air Intake & Output 10/27 1600 10/27 0800 10/27 0000 Intake Total 240 Output Total 102 Balance 138 Intake, Oral 240 Number 1 Bowel Movements Output, Stool 2 Output, Urine 100 Physical Exam General Appearance: Alert, Oriented X3, Cooperative, No Acute Distress Cardiovascular: Regular Rate, Normal S1, Normal S2 Lungs: decreased breath sound ln left lower area Extremities: No Edema Current Medications: Current Medications Sig/Gordon Start time Last Medication Dose Route Stop Time Status Admin Albuterol Sulfate 3 ML Q4-PRN PRN 10/25 1900 AC INH Azithromycin 500 MG 1400 10/26 1400 AC 10/26 Sodium Chloride 250 ML IV 1236 Ceftriaxone Sodium 1,000 MG 1400 10/26 1400 AC 10/26 IV 1236 Dextrose/Sodium 1,000 ML Q13H 10/26 1330 AC 10/27 Chloride IV 0640 Enoxaparin Sodium 40 MG 1600 10/25 1600 AC 10/26 SC 1647 Ferrous Sulfate 325 MG DAILY 10/26 1000 AC 10/27 PO 0954 Patient Medication 1 ED .STK-MED ONE 10/26 1344 MI Teaching ED 10/26 1345 Last 24 Hrs of Lab/Mando Results Last 24 Hrs of Labs/Mics: Laboratory Tests 10/27/16 0600: CBC w Diff NO MAN DIFF REQ, RBC 2.92 L, MCV 93.3, MCH 32.5 H, RDW 14.9 H, MPV 8.2, Gran % 71.3, Lymphocytes % 16.2 L, Monocytes % 12.1 H, Eosinophils % 0.1, Basophils % 0.3, Absolute Granulocytes 5.5, Absolute Lymphocytes 1.2, Absolute Monocytes 0.9 H, Absolute Eosinophils 0, Absolute Basophils 0, PUBS MCHC 34.8 Microbiology 10/26 2009 URINE ROUT: Legionella Antigen - COMP 10/26 2009 URINE ROUT: Streptococcus pneumoniae Antigen (M - COMP Assessment/Plan Assessment: 81 -year-old gentleman past medical history significant for follicular lymphoma status post chemotherapy 6 months ago, anemia, current admission for fall due to weakness, productive cough, found to require oxygen via NC, spiked a fever overnight. plan #Community-acquired pneumonia wbc trended down - on IV Ceftriaxone, and Azithromycin -prelim blood cultures show no growth, strep pneum duane ag postive, follow-up in rapid influenza test, urine Legionella and Streptococcus test -pulmonary consulted, appreciate recomendations -CT chest ordered #Follicular lymphoma Follicular lymphoma was diagnosed 2 years ago, the patient received 6 cycles of chemotherapy with the latest one being 6 months ago according to the patient himself. -Oncology aware #Hypotension Patient had an episode of blood pressure 96/50 this morning, to which serially 1 L normal saline and again 1 L normal saline was given as a bolus IV and recheck blood pressure was 98/42 with a heart rate of 96. Patient does not have any symptoms, has been feeding modestly, although fluid intake is adequate. -Question remains whether the patient's blood pressure is always on the lower range. -IV fluid with D5 half normal saline has been started at 75 mL per hour, plan to continue it #History of Anemia Currently 9.5 on iron supplement Thrombocytopenia d/c lovenox will continue to monitor, watch for active bleeding #Diet: Regular diet #DVT prophylaxis: Lovenox #CODE STATUS: DO NOT RESUSCITATE/ DO NOT INTUBATE Problem List: 1. Pleural effusion 2. Anemia 3. Weakness 4. Pneumonia 5. 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 Patient appears weak and sleepy. Afebrile. BP 100/48 today, given 2L NS. Will continue IV hydration, Ceftriaxone and Azithromycin, follow cultures, check TFTs, Vitamin D, PT eval.
--- NOTE | 2016-10-27 11:56 | PN- Student ---
Subjective Subjective: Chief Complaint: Fall Source: Patient History of Present Illness: The patient is a 81 y/o male with a history of lymphoma. He was brought to the ER in an Ambulance due to a fall. The patient states that he was going to sit down on his couch and suddenly "he lost it" and didn't reach it, hence falling on his left side. The patient denies any loss of consciousness during the incident and also denies that he felt any dizzines as well. On evaluation he didn't expressed any type of pain or discomfort. He also complained if having a productive cough which started a few days ago. He described the initial sputum as orange in color but stated that currently it is clear in appareance. No audible stridor or wheezes were perceived while taking the history. Allergies/Medications: Allergies -No known allergies Current Home Medications - Ferrous Sulfate (220 mg/5 mL 5 mL PO Daily for Anemia) - Latanoprost (50 GTT/1 Bot GTT for Glaucoma) - Loratadine (10 mg) Objective Objective: Physical Examination: General: 81 t/o M with mild distress, weakness and mild fever. HEENT: Not assessed. Neck: Not assessed Mouth: Not assessed. Lungs: Diminished breath sounds while auscultating the base of the lungs. CV: S1, S2 were heard. No murmurs appreciated. GI: Not assessed. Genitourinary: Not assessed MSK: Not assessed. Upper Extremities: No swelling, Lower Extremities: No signs of edema or changes in temperature were perceived upon palpation. Neurological: Normal Speech. Additional Notes: Patient denies feeling weak but visually it can be noticed that he is weaker compared to admittance date. Current Medications Sig/Gordon Start time Last Medication Dose Route Stop Time Status Admin Albuterol Sulfate 3 ML Q4-PRN PRN 10/25 1900 AC INH Azithromycin 500 MG 1400 10/26 1400 AC 10/27 Sodium Chloride 250 ML IV 1234 Ceftriaxone Sodium 1,000 MG 1400 10/26 1400 AC 10/27 IV 1234 Dextrose/Sodium 1,000 ML Q13H 10/26 1330 DC 10/27 Chloride [place] 0640 Enoxaparin Sodium 40 MG 1600 10/25 1600 DC 10/26 SC 1647 Ferrous Sulfate 325 MG DAILY 10/26 1000 AC 10/27 PO 0954 Results Results: Laboratory Tests 10/27/16 0600: CBC w Diff NO MAN DIFF REQ, RBC 2.92 L, MCV 93.3, MCH 32.5 H, RDW 14.9 H, MPV 8.2, Gran % 71.3, Lymphocytes % 16.2 L, Monocytes % 12.1 H, Eosinophils % 0.1, Basophils % 0.3, Absolute Granulocytes 5.5, Absolute Lymphocytes 1.2, Absolute Monocytes 0.9 H, Absolute Eosinophils 0, Absolute Basophils 0, PUBS MCHC 34.8 10/26/16 0600: Anion Gap 12, Estimated GFR > 60, BUN/Creatinine Ratio 20.0, CBC w Diff NO MAN DIFF REQ, RBC 3.22 L, MCV 94.9 H, MCH 32.1 H, RDW 15.1 H, MPV 7.8, Gran % 72.9, Lymphocytes % 16.0 L, Monocytes % 10.8 H, Eosinophils % 0, Basophils % 0.3, Absolute Granulocytes 8.6 H, Absolute Lymphocytes 1.9, Absolute Monocytes 1.3 H, Absolute Eosinophils 0, Absolute Basophils 0, PUBS MCHC 33.8 10/26/16 0223: Lactic Acid Cancelled 10/25/16 2335: Lactic Acid 1.5 10/25/16 2145: Urine Color YEL, Urine Clarity CLEAR, Urine pH 6.0, Ur Specific [place] 1.025, Urine Protein TRACE H, Urine Ketones NEG, Urine Nitrite NEG, Urine Bilirubin NEG, Urine Urobilinogen 0.2, Ur Leukocyte Esterase NEG, Ur Microscopic SEDIMENT EXAMINED, Urine RBC 3-5, Urine WBC 5-10 H, Ur Epithelial Cells MOD H, Urine Crystals RARE CA OX, Hyaline Casts RARE H, Urine Hemoglobin SMALL H, Urine Glucose NEG 10/25/16 2105: Lactic Acid 3.4 H 10/25/16 1747: Lactic Acid 1.5 10/25/16 1357: Lactic Acid Cancelled 10/25/16 1225: Anion Gap 13, Estimated GFR > 60, BUN/Creatinine Ratio 21.1, Glucose 134 H, Lactic Acid 2.7 H, Calcium 8.9, Magnesium 2.1, Total Bilirubin 1.6 H, AST 52, ALT 32, Alkaline Phosphatase 106, Troponin I < 0.01, Total Protein 5.8 L, Albumin 3.1 L, Globulin 2.7, Albumin/Globulin Ratio 1.1, CBC w Diff NO MAN DIFF REQ, RBC 4.02 L, MCV 94.4 H, MCH 31.7 H, RDW 14.9 H, MPV 7.3 L, Gran % 80.9 H, Lymphocytes % 8.7 L, Monocytes % 10.0 H, Eosinophils % 0.1, Basophils % 0.3, Absolute Granulocytes 12.0 H, Absolute Lymphocytes 1.3, Absolute Monocytes 1.5 H, Absolute Eosinophils 0, Absolute Basophils 0.1, PUBS MCHC 33.6 Microbiology 10/26 2009 URINE ROUT: Legionella Antigen - COMP 10/26 2009 URINE ROUT: Streptococcus pneumoniae Antigen (M - COMP 10/25 1432 BLOOD: Blood Culture - RES 10/25 1415 BLOOD: Blood Culture - RES 10/25 1356 LOWER RESP: Respiratory Culture - CAN Cancelled: SPECIMEN NOT RECEIVED IN LABORATORY 10/25 135 LOWER RESP: Gram Stain - CAN Cancelled: SPECIMEN NOT RECEIVED IN LABORATORY Vital Signs Date Time Temp Pulse Resp B/P Pulse O2 O2 Flow FiO2 Ox Delivery Rate 10/27 1459 98.2 50 20 110/62 93 10/27 0848 91 Nasal 2.0L Cannula 10/27 08 93 Nasal 2.0L Cannula 10/27 0613 98.7 82 20 100/34 92 Room Air 10/27 0000 99.6 10/27 0000 Nasal 2.0L Cannula 10/26 2212 100.8 90 18 100/36 94 Room Air Intake & Output 10/27 1600 10/27 0800 10/27 0000 Intake Total 980 450 240 Output Total 102 Balance 980 450 138 Intake, IV 500 450 Intake, Oral 480 0 240 Number 0 1 Bowel Movements Output, Stool 2 Output, Urine 100 Assessment/Plan Assessment: Patient is a 81 y/o M with a PMHx of Lymphoma. The patient came in to the ER due to a fall that happened at 11:30 am of the admitance date (10/25/16). The vital signs of the patient are stable but not within the reference values specially BP which has been low since admitted. The patient had an overnight fever of 100.9 F. There is no neutropenia but there is luekopenia and trhombocytopenia. Lung auscultation was consistent with the CXR findings (L&R pleural effusion) since the breath sounds were diminished. Heart sounds were all normal on auscultation. Patient Impression: The patient is not in respiratory distress but the appareance is resemblant of weakness although he denies it. The blood pressure has not increased since admitted and the latest Oxygen Sat measurement read 93%. Problem List: 1) Fever 2) Decreased Blood Pressure 3) Weakness & Fatigue 4) SOB 5) Fall surveilance Plan: - Monitor BP closely. - Schedule pulmonology consult to assess new pleural effusion on the R lung. - Consider changing antibiotic regimen tomorrow if the mild fever doesn't subside and the weakness doesn't improves. - Follow up on Oncologist visit, Dr. Costa.
--- NOTE | 2016-10-27 14:18 | Cons- Pulmonary ---
General Information and HPI Consulting Request Date of Consult: 10/27/16 Requested By: Dr. Chaudhary Reason for Consult: Pleural effusion Source of Information: patient Exam Limitations: no limitations History of Present Illness: Patient is an 81-year-old man previously seen by me in 2015. He has a history of follicular lymphoma status post chemotherapy (last chemotherapy per patient 3 months ago) and follows with Dr. Costa. He has a history of anemia as well. He has been feeling lethargic and overall generalized weakness over the past couple of weeks. He has had an increased cough over the past 2 weeks with yellowish colored sputum. After feeling dizzy and weak at his oncologist's office he had an accidental fall which prompted a visit to the emergency room department. In the ER he required 2 L nasal cannula due to his oxygen saturation being 90%. Initially a white count of 14.9 currently 7.7. He has been treated with ceftriaxone and Zithromax. Microbiology has been negative to date. There is no sputum culture on record. X-ray shows a chronic density in the left lung and left pleural effusion. New small right pleural effusion with a hazy opacity in the right lung base. No n/v/d/c. Allergies/Medications Allergies: Uncoded Allergies: SEASONAL (UNKNOWN 06/09/15) Home Med List: Ferrous Sulfate 220 MG/5 ML ROSEMARY 5 ML PO DAILY ANEMIA (Reported) Current Medications: Current Medications Sig/Gordon Start time Last Medication Dose Route Stop Time Status Admin Albuterol Sulfate 3 ML Q4-PRN PRN 10/25 1900 AC INH Azithromycin 500 MG 1400 10/26 1400 AC 10/27 Sodium Chloride 250 ML IV 1234 Ceftriaxone Sodium 1,000 MG 1400 10/26 1400 AC 10/27 IV 1234 Dextrose/Sodium 1,000 ML Q13H 10/26 1330 DC 10/27 Chloride IV 0640 Enoxaparin Sodium 40 MG 1600 10/25 1600 DC 10/26 SC 1647 Ferrous Sulfate 325 MG DAILY 10/26 1000 AC 10/27 PO 0954 Review of Systems Comments 18 point Review of Systems performed. Positive and negative pertinent findings are deliniated in the HPI. Otherwise the ROS is negative. Past History Travel History Traveled to [place] past 21 day No Medical History Blood Transfusion Hx: No Neurological: NONE EENT: glaucoma Cardiovascular: NONE Respiratory: NONE, pneumonia Gastrointestinal: NONE Hepatic: NONE Renal: NONE Musculoskeletal: NONE Psychiatric: NONE Endocrine: NONE Blood Disorders: anemia Cancer(s): leukemia [employer]GER/Reproductive: NONE Surgical History Surgical History: ANKLE SX Family History Relations & Conditions If Any: Relation not specified for: *No pertinent family history Psychosocial History Where Do You Live? Home Who Do You Live With? spouse, grandchildren Primary Language: Guatemalan Smoking Status: Former Smoker ETOH Use: occasional use Illicit Drug Use: denies illicit drug use Functional Ability ADLs Independent: dressing, eating, toileting, bathing. Ambulation: independent Employment History Employment: Unemployed Exam & Diagnostic Data Last 24 Hrs of Vital Signs/I&O Vital Signs Date Time Temp Pulse Resp B/P Pulse O2 O2 Flow FiO2 Ox Delivery Rate 10/27 0748 91 Nasal 2.0L Cannula 10/27 799 93 Nasal 2.0L Cannula 10/27 612 98.7 82 20 100/34 92 Room Air 10/27 0000 99.6 10/27 0000 Nasal 2.0L Cannula 10/26 2212 100.8 90 18 100/36 94 Room Air 10/26 1449 98.2 96 18 98/42 92 Room Air 10/26 1446 98.9 92 18 96/50 93 Room Air Intake & Output 10/27 1600 10/27 0800 10/27 0000 Intake Total 450 240 Output Total 102 Balance 450 138 Intake, IV 450 Intake, Oral 0 240 Number 0 1 Bowel Movements Output, Stool 2 Output, Urine 100 Physical Exam Other Physical Findings: General - Alert, awake and oriented, cachectic HEENT - normocephalic, atraumatic Cardiovascular - S1, S2 Lungs - diminished breath sounds bilaterally Abdomen - soft, bowel sounds positive, no tenderness Extremities - without edema or cyanosis Last 48 Hrs of Labs/Mando: Laboratory Tests 10/27/16 06: CBC w Diff NO MAN DIFF REQ, RBC 2.92 L, MCV 93.3, MCH 32.5 H, RDW 14.9 H, MPV 8.2, Gran % 71.3, Lymphocytes % 16.2 L, Monocytes % 12.1 H, Eosinophils % 0.1, Basophils % 0.3, Absolute Granulocytes 5.5, Absolute Lymphocytes 1.2, Absolute Monocytes 0.9 H, Absolute Eosinophils 0, Absolute Basophils 0, PUBS MCHC 34.8 10/26/16 0600: Anion Gap 12, Estimated GFR > 60, BUN/Creatinine Ratio 20.0, CBC w Diff NO MAN DIFF REQ, RBC 3.22 L, MCV 94.9 H, MCH 32.1 H, RDW 15.1 H, MPV 7.8, Gran % 72.9, Lymphocytes % 16.0 L, Monocytes % 10.8 H, Eosinophils % 0, Basophils % 0.3, Absolute Granulocytes 8.6 H, Absolute Lymphocytes 1.9, Absolute Monocytes 1.3 H, Absolute Eosinophils 0, Absolute Basophils 0, PUBS MCHC 33.8 10/26/16 0223: Lactic Acid Cancelled 10/25/16 2335: Lactic Acid 1.5 10/25/16 2145: Urine Color YEL, Urine Clarity CLEAR, Urine pH 6.0, Ur Specific [place] 1.025, Urine Protein TRACE H, Urine Ketones NEG, Urine Nitrite NEG, Urine Bilirubin NEG, Urine Urobilinogen 0.2, Ur Leukocyte Esterase NEG, Ur Microscopic SEDIMENT EXAMINED, Urine RBC 3-5, Urine WBC 5-10 H, Ur Epithelial Cells MOD H, Urine Crystals RARE [place], Hyaline Casts RARE H, Urine Hemoglobin SMALL H, Urine Glucose NEG 10/25/16 2105: Lactic Acid 3.4 H 10/25/16 1747: Lactic Acid 1.5 Microbiology 10/26 2009 URINE ROUT: Legionella Antigen - COMP 10/26 2009 URINE ROUT: Streptococcus pneumoniae Antigen (M - COMP Assessment/Plan Impression/Plan: Impression 81 year old man * X-ray shows a chronic density in the left lung and left pleural effusion. New small right pleural effusion with a hazy opacity in the right lung base. Can reprsent pneumonia, chemotherapy was about 3 months ago, would treat as community acquired at this time * Follicular lymphoma * Fatigue, deconditioning Plan - CT chest without contrast to evaluate lung parenchyma and deliniate effusion if amenable to thoracentesis - cont abx at this time - obtain sputum cx - spo2 goal >88% DVT prophylaxis at all times Consult Acknowledgment - Thank you for your consult request.
[2016-10-27 14:59] VITALS: BP 110/62
--- NOTE | 2016-10-27 18:38 | CT SCAN REPORT ---
EXAMINATION: CT CHEST WITHOUT CONTRAST CLINICAL INFORMATION: Fever. Weakness. Worsening consolidation. COMPARISON: 07/18/[address] and priors; 10/26/2016 plain film and priors. TECHNIQUE: Multidetector volumetric CT imaging of the chest was done. Axial MIP volume rendering provided. Sagittal and coronal reformatted images were obtained. Left arm at side causes beam hardening artifact. Lack of iodinated contrast media hinders evaluation of chronic progressive pleural-parenchymal disease. DLP: 228.25 mGy-cm. FINDINGS: JANITOR HELPER: A left basal effusion and consolidation have progressed since 07/18/2016. New right basal airspace opacity and effusion. LUNGS: There is extensive new consolidation in the central right lower lobe. The right lower lobe airways are patent. There is a marked progression of left lower lobe consolidation and left upper lobe consolidation including the lingula. Small focus of patchy/nodular airspace disease is noted in the right upper lobe (series 3 images 18, 19/76). Overall active airspace filling disease is favored over compressive or rounded atelectasis. The appearance is nonspecific and considerations range from aspiration, to pneumonia, to noninfectious organizing pneumonia or neoplastic disease. MEDIASTINUM: Mediastinal adenopathy continues to progress. A large paraesophageal node or mass at the level of the mitzy is less well seen on noncontrast exam but has also progressed. There is mild atherosclerotic disease and coronary disease. PLEURA: The left pleural effusion shows a thickened pleura which was previously enhancing consistent with an exudate. This has increased in volume. Infection is unlikely given the chronicity of this finding. Considerations include a malignant effusion, asbestos related pleural disease or inflammatory disease among other considerations. The right pleural effusion appears freely layering without obvious pleural thickening. No large pericardial effusion. AXILLA: No axillary adenopathy. The patient appears cachectic. A left internal mammary lymph node is enlarged (series 2 image 31/76). No obvious breast mass. UPPER ABDOMEN: There is some celiac and mesenteric adenopathy suggested. The spleen is within normal limits in size. OSSEOUS STRUCTURES: No acute osseous finding. IMPRESSION: 1. An exudative loculated left pleural effusion continues to increase in volume. 2. Progressive mediastinal and now internal mammary lymphadenopathy. 3. Progressive consolidation in the left lung and now in the right lower lobe. Active airspace disease is favored. 4. New layering right effusion. 5. Progressive adenopathy in the upper abdomen. 6. A left thoracentesis can be considered for diagnostic purposes.
[2016-10-27 21:49] VITALS: BP 110/54
--- NOTE | 2016-10-27 21:55 | Event Note ---
See Addendum Event Note Event Note: 9PM: Pt has tachycardia, rate 130-140. BP 110/54, afebrile. He is asymptomatic, specifically denied chest pain, and palpitations. He is comfortably lying in bed. EKG obtained and showed new T wave inversions on on V1, V2, and V3, and p wave inversions on lead II. Although the EKG read atrial fibrillation, he does have P waves, and rate is regular. Repeat EKG obtained and showed the same. Labs drawn: troponin <0.01, K 3.6, mag 2.0, cortisol pm 26.2. CTA negative for PE. 1215 AM: He was transferred to telemetry (187-1), and his HR went as high as 170. He then spiked temp to 102.1 rectally, with BP of 80/48. He was still asymptmatic. Assesment: He seems to be developing sepsis: tachycardia, fever, source includes loculated left sided pleural effusion that could be developing into empyema, positive strep pneumo. He is immunocompromised given follicular lymphoma on chemotherapy. Plan: * IVF NS 1000 ml bolus * Follow up lactic acid, PT, PTT * next trop and EKG at 4am. Tele team: * NPO * Broaden abx * Thoracentesis tomorrow with IR, get all lytes criteria, ctyology, micro, ph * Please inform Dr. Costa regarding his fever * Consider cardio consult * Panculture: BC X 2 Am team: * Please call IR to make sure they do the thoracentesis tmr
--- NOTE | 2016-10-27 22:30 | NUR ---
PT'S HEART RATE INCREASED 140 BPM AT 1999. PT ASYMPTOPMATIC. DENIES CHEST PAIN OR FEELING OF HEART RACING. MOD NOTIFIED. EKG ORDERED. TRIPONINS DRAWN. WILL CONTINUE TO MONITOR PATIENT.
--- NOTE | 2016-10-28 00:08 | CT SCAN REPORT ---
EXAMINATION: CT ANGIOGRAM OF THE CHEST WITH AND WITHOUT CONTRAST (CT PULMONARY ANGIOGRAM FOR PE) CLINICAL INFORMATION: Tachycardia and shortness of breath. COMPARISON: CT chest without contrast 10/27/2016. CT chest with contrast 07/18/2016. TECHNIQUE: Prior to contrast administration, noncontrast localization images were obtained. Subsequently, multidetector volumetric imaging was performed from the thoracic inlet to below the diaphragms following the administration of 120 mL Optiray 320 intravenous contrast. No contrast reaction reported. Sagittal, coronal, and MIP oblique sagittal reformatted images were obtained on the CT workstation, uploaded to PACS, and reviewed. Total exam dose-length product 301 mGy-cm FINDINGS: QUALITY OF STUDY/CONTRAST BOLUS: Adequate contrast opacification of the pulmonary arterial vasculature. PULMONARY ARTERIES: No evidence of pulmonary embolism to the level of the segmental pulmonary arteries. Limited evaluation of the subsegmental pulmonary arteries, notably within the bilateral lung bases given bibasilar consolidation and pulmonary hypoinflation. Nevertheless, there are no visible intraluminal filling defects within the subsegmental pulmonary arteries of the bilateral lower lobes. No large central pulmonary emboli are identified. THORACIC AORTA: Normal caliber of the thoracic aorta. No centrally displaced intraluminal flaps to suggest aortic dissection. LUNG: Redemonstrated is bilateral airspace consolidation, notably within the right lower lobe as well as within the left upper lobe, lingula and left lung base. Cannot exclude multilobar pneumonia. The central airways remain patent, without endobronchial obstructing lesions. There are subtle groundglass opacities within the right upper lobe, grossly unchanged. PLEURA: As noted on the most recent examination, there is a complex left-sided pleural effusion measuring 7.2 x 14.6 cm in transverse and AP dimensions respectively (series 5, image 56). This complex left-sided pleural effusion demonstrates a split pleural sign which is suspicious for an empyema. The previously noted right-sided pleural effusion is small in volume and grossly unchanged relative to the most recent exam. No pneumothoraces are identified. MEDIASTINUM: Stable mediastinal adenopathy. Specifically, there are mildly prominent mediastinal lymph nodes within the aortopulmonary window as well as the subcarinal region and periesophageal region, as noted on the most recent CT of the chest. Additionally, there is a mildly prominent left internal mammary lymph node. A mildly prominent right hilar lymph node measures 1.4 cm. No significant axillary or left hilar adenopathy is identified. Normal heart size, without significant pericardial effusion. Normal three-vessel branching of the aortic arch. Normal caliber of the thoracic aorta and main pulmonary artery. CHEST WALL/AXILLA: As noted above, there is a mildly prominent left internal mammary lymph node measuring approximately 0.6 cm in short axis dimension (series 5, image 29). No significant axillary adenopathy. OSSEOUS STRUCTURES: No acute osseous abnormality. Normal alignment of the imaged thoracic spine. No visible destructive osseous lesions. UPPER ABDOMEN: No acute findings within the upper abdomen. Partially visualized mildly prominent right retrocrural lymph node measuring approximately 1.2 x 2.4 cm (series 5, image 60). No reflux of contrast into the hepatic veins to suggest elevated right heart pressures. IMPRESSION: 1. Adequate contrast opacification of the pulmonary arterial vasculature, without evidence of pulmonary embolism. 2. A 7.2 x 14.6 cm loculated left-sided pleural effusion with a split pleural sign, suspicious for empyema. Consider interventional radiology consultation to assess for diagnostic left-sided thoracentesis. 3. Airspace consolidation within the right lower lobe as well as within the lingula, left upper and left lower lobes, suspicious for a multifocal infectious process. These infiltrates do not appear significantly changed relative to the most recent chest CT. 4. Small right-sided pleural effusion. 5. Mildly prominent thoracic adenopathy, as detailed above. VTE: Negative.
[2016-10-28 01:06] VITALS: BP 80/48
[2016-10-28 01:10] VITALS: BP 112/64
[2016-10-28 01:18] LABS: ABSOLUTE BASOPHIL COUNT 0 /CUMM (0.0-0.2); ABSOLUTE EOSINOPHIL COUNT 0 /CUMM (0.0-0.7); ABSOLUTE GRANULOCYTE CT 6.6 /CUMM (1.4-6.5); BASOPHIL % 0.3 % (0.0-2.0); EOSINOPHIL % 0 % (0-5); GRANULOCYTE % 76.5 % (42.2-75.2); HEMATOCRIT 30.3 % (42-52); MEAN CORPUSCULAR HGB 31.8 PG (27.0-31.0); MEAN CORPUSCULAR HGB CONC 33.9 G/DL (33.0-37.0); MEAN CORPUSCULAR VOLUME 93.8 FL (80.0-94.0); MEAN PLATELET VOLUME 8.1 FL (7.4-10.4); PLATELET COUNT 106 /CUMM (130-400); RBC DISTRIBUTION WIDTH 14.6 % (11.5-14.5); RED BLOOD CELL CT 3.23 /CUMM (4.70-6.10); WHITE BLOOD CELL COUNT 8.6 /CUMM (4.8-10.8)
[2016-10-28 01:41] LABS: PT 13.6 SEC (9.4-12.5); PTT 36 SEC (25-37)
[2016-10-28 04:36] VITALS: BP 90/60
[2016-10-28 08:31] VITALS: BP 100/47
--- NOTE | 2016-10-28 11:07 | PN- Pulmonary ---
Subjective HPI/Critical Care Issues: pt seen and examined transferred to [facility] for tachycardia febrile overnight ct chest reviewed and in chart no n/v/d/c dyspnea with exertion no cp Objective Current Medications: Current Medications Sig/Gordon Start time Last Medication Dose Route Stop Time Status Admin Albuterol Sulfate 3 ML Q4-PRN PRN 10/25 1900 AC INH Azithromycin 500 MG 1400 10/26 1400 DC 10/27 Sodium Chloride 250 ML IV 1234 Ceftazidime 1,000 MG IQ8 10/28 0100 DC 10/28 IV 0849 Ceftriaxone Sodium 1,000 MG 1400 10/28 1400 AC IV Ceftriaxone Sodium 1,000 MG 1400 10/26 1400 DC 10/27 IV 1234 Dextrose/Sodium 250 ML Q10H 10/27 2300 DC Chloride IV 10/28 0129 Dextrose/Sodium 1,000 ML Q13H 10/26 1330 DC 10/27 [place]ide IV 0640 Diltiazem HCl 125 MG Q24H 10/28 0500 DC Sodium Chloride 100 ML IV Diltiazem HCl 2.5 MG ONCE ONE 10/28 0215 DC 10/28 IV 10/28 021 0320 Enoxaparin Sodium 40 MG 1600 10/25 1600 DC 10/26 SC 1647 Ferrous Sulfate 325 MG DAILY 10/26 1000 AC 10/28 PO 0817 Phosphate 250 MG ONCE ONE 10/28 714 DC 10/28 PO 10/28 715 0849 Potassium Chloride 40 MEQ ONCE ONE 10/28 714 DC 10/28 PO 10/28 07 0849 Sodium Chloride 1,000 ML Q13H 10/28 07 AC 10/28 IV 10/28 Sodium Chloride 1,000 ML BOLUS ONE 10/28 0030 DC 10/28 IV 10/28 128 0034 Vancomycin HCl 1,000 MG DAILY@0100 10/29 0100 CAN Sodium Chloride 250 ML IV Vancomycin HCl 1,000 MG DAILY 10/28 010 DC 10/28 Sodium Chloride 250 ML IV 0135 Vital Signs & I&O Last 24 Hrs of Vitals and I&O: Vital Signs Date Time Temp Pulse Resp B/P Pulse O2 O2 Flow FiO2 Ox Delivery Rate 10/28 1021 Nasal 2.0L Cannula 10/28 830 99.0 87 19 100/47 96 Nasal 2.5L Cannula 10/28 0510 82 10/28 0436 115 90/60 10/28 0320 144 122/60 10/28 0215 99.1 10/28 0110 122 112/64 10/28 0106 102.1 123 18 80/48 97 Nasal 2.5L Cannula 10/28 0000 94 Nasal 2.0L Cannula 10/27 2149 99.1 140 18 110/54 96 Nasal 2.0L Cannula 10/27 1949 95 Nasal 2.0L Cannula 10/27 1600 Nasal 2.0L Cannula 10/27 1459 98.2 50 20 110/62 93 Intake & Output 10/28 1600 10/28 0800 10/28 0000 Intake Total 1225 600 Output Total Balance 1225 600 Intake, IV 1175 250 Intake, Oral 50 350 Number 1 Bowel Movements Exam Other Physical Findings: General - Alert, awake and oriented, cachectic HEENT - normocephalic, atraumatic Cardiovascular - S1, S2 Lungs - diminished breath sounds bilaterally Abdomen - soft, bowel sounds positive, no tenderness Extremities - without edema or cyanosis Results Last 24 Hrs of Lab Results: Laboratory Tests 10/28/16 0420: Troponin I < 0.01 10/28/16 0420: Lactic Acid 0.7 10/28/1656: Lactic Acid 0.9 10/28/16 0057: Anion Gap 10, Estimated GFR > 60, BUN/Creatinine Ratio 18.3, Phosphorus 2.2 L, Magnesium 2.0, PT 13.6 H, INR 1.30 H, APTT 36 10/28/16 0030: CBC w Diff NO MAN DIFF REQ, RBC 3.23 L, MCV 93.8, MCH 31.8 H, RDW 14.6 H, MPV 8.1, Gran % 76.5 H, Lymphocytes % 11.2 L, Monocytes % 12.0 H, Eosinophils % 0 , Basophils % 0.3, Absolute Granulocytes 6.6 H, Absolute Lymphocytes 1.0 L, Absolute Monocytes 1.0 H, Absolute Eosinophils 0, Absolute Basophils 0, PUBS MCHC 33.9 10/27/163: Magnesium 2.0, Troponin I < 0.01, Cortisol PM Sample 26.2 H Impression/Plan Impression/Plan Impression/Plan: Impression 81 year old man * Loculated left sided pleural effusion, right sided effusion * airpsace disease consistent with pneumonia secondary to likely streptococcal pneumonia given positive antigen * Follicular lymphoma * Fatigue, deconditioning Plan - diagnostic thoracentesis of left chest, ldh, cytology, micro, ph, cell count, t.protein, t.cholesterol, ensure serum ldh, t.protein - cont ceftriaxone - + strep pneumo - spo2 goal >88% DVT prophylaxis at all times
--- NOTE | 2016-10-28 17:05 | Cons- Cardiology ---
General Information and HPI Consulting Request Date of Consult: 10/28/16 Requested By: PHILLIP ROBERTS MD Reason for Consult: Atrial fibrillation in the setting of pneumonia and pleural effusions. Source of Information: patient, old records Exam Limitations: poor historian History of Present Illness: This patient was admitted 3 days ago after a fall. He was found to have bilateral pleural effusions and pneumonia. He has been treated for pneumonia in the hospital. He has underlying follicular lymphoma and is on chemotherapy. Last evening he was noted to be tachycardic and moved to the telemetry unit. His EKG showed atrial fibrillation/atrial flutter with a moderate ventricular response in the 120s. When I went to see him at about 5 PM on the monitor he is now in sinus rhythm. He apparently converted to sinus rhythm while he was off the banks having a test done. The patient denies any underlying heart disease. He's never had any arrhythmias to his knowledge. He denies any chest pain, shortness of breath, palpitations. He's not had an echocardiogram or a cardiology evaluation in this hospital. At the current time he is only feeling weak. He is not short of breath or having any chest pain. Allergies/Medications Allergies: Uncoded Allergies: SEASONAL (UNKNOWN 06/09/15) Home Med List: Ferrous Sulfate 220 MG/5 ML ROSEMARY 5 ML PO DAILY ANEMIA (Reported) Current Medications: Current Medications Sig/Gordon Start time Last Medication Dose Route Stop Time Status Admin Albuterol Sulfate 3 ML Q4-PRN PRN 10/25 1900 AC INH Azithromycin 500 MG 1400 10/26 1400 DC 10/27 Sodium Chloride 250 ML IV 1234 Ceftazidime 1,000 MG IQ8 10/28 0100 DC 10/28 IV 0849 Ceftriaxone Sodium 1,000 MG 1400 10/28 1400 AC 10/28 IV 1234 Ceftriaxone Sodium 1,000 MG 1400 10/26 1400 DC 10/27 IV 1234 Dextrose/Sodium 250 ML Q10H 10/27 2300 DC Chloride IV 10/28 0129 Diltiazem HCl 125 MG Q24H 10/28 0500 DC Sodium Chloride 100 ML IV Diltiazem HCl 2.5 MG ONCE ONE 10/28 0215 DC 10/28 IV 10/28 0216 0320 Ferrous Sulfate 325 MG DAILY 10/26 1000 AC 10/28 PO 0817 Phosphate 250 MG ONCE ONE 10/28 0715 DC 10/28 PO 10/28 715 0849 Potassium Chloride 40 MEQ ONCE ONE 10/28 714 DC 10/28 PO 10/28 715 0849 Sodium Chloride 1,000 ML Q13H 10/28 714 AC 10/28 IV 10/28 Sodium Chloride 1,000 ML BOLUS ONE 10/28 0030 DC 10/28 IV 10/28 0129 0034 Vancomycin HCl 1,000 MG DAILY@0100 10/29 0100 CAN Sodium Chloride 250 ML IV Vancomycin HCl 1,000 MG DAILY 10/28 010 DC 10/28 Sodium Chloride 250 ML IV 0135 Review of Systems Review of Systems: His only complaint at this time is generalized weakness and insomnia Past History Travel History Traveled to [place] past 21 day No Medical History Blood Transfusion Hx: No Neurological: NONE EENT: glaucoma Cardiovascular: NONE Respiratory: NONE, pneumonia Gastrointestinal: NONE Hepatic: NONE Renal: NONE Musculoskeletal: NONE Psychiatric: NONE Endocrine: NONE Blood Disorders: anemia Cancer(s): 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 Home Who Do You Live With? spouse, grandchildren Primary Language: Turkmen Smoking Status: Former Smoker ETOH Use: occasional use Illicit Drug Use: denies illicit drug use Functional Ability ADLs Independent: dressing, eating, toileting, bathing. Ambulation: independent Employment History Employment: Unemployed Exam & Diagnostic Data Vital Signs and I&O Vital Signs Date Time Temp Pulse Resp B/P Pulse O2 O2 Flow FiO2 Ox Delivery Rate 10/28 1021 Nasal 2.0L Cannula 10/28 830 99.0 87 19 100/47 96 Nasal 2.5L Cannula 10/28 0510 82 10/28 0436 115 90/60 10/28 0320 144 122/60 10/28 0215 99.1 10/28 0110 122 112/64 10/28 0106 102.1 123 18 80/48 97 Nasal 2.5L Cannula 10/28 0000 94 Nasal 2.0L Cannula 10/27 2149 99.1 140 18 110/54 96 Nasal 2.0L Cannula 10/27 1949 95 Nasal 2.0L Cannula Intake & Output 10/28 1600 10/28 0000 10/27 1600 10/27 0000 Intake Total 1000 1225 600 980 450 240 Output Total 102 Balance 1000 1225 600 980 450 138 Intake, IV 600 1175 250 500 450 Intake, Oral 400 50 350 480 0 240 Number 1 0 1 Bowel Movements Output, Stool 2 Output, Urine 100 Physical Exam: He is a thin chronically ill appearing elderly male but in no acute distress. HEENT exam is normal Chest reveals decreased breath sounds in the bases Heart reveals regular rhythm and no murmurs Extremities reveal no edema Labs/Mando Results: Laboratory Tests 10/28 10/28 10/28 10/28 10/28 1515 1500 1500 0420 0420 Chemistry Lactic Acid (0.7 - 2.1 mmol/L) 0.7 Troponin I (<0.11 ng/ml) < 0.01 Hematology Lymphocytes (%) 8 % Normal PMNs (%) 90 Miscellaneous Phlebotomy Draw Site LT THORA Other Body Source Fluid WBC (0 - 5 /CUMM) 511 H Fld Mesothelial Cells (%) 2 Fld Total RBCs Counted (0 /CUMM) 72 H Fluid Glucose (mg/dL) < 20 Fluid Total Protein (g/dL) 2.5 Fluid Albumin (g/dL) 1.3 Fluid LDH (U/L) 1414 Fluid Amylase (U/L) < 30 Pleural pH (PH) 6.84 10/28 10/28 10/28 0057 0057 0030 Chemistry Sodium (137 - 145 mmol/L) 130 L Potassium (3.5 - 5.1 mmol/L) 3.5 Chloride (98 - 107 mmol/L) 95 L Carbon Dioxide (22 - 30 mmol/L) 25 Anion Gap (5 - 16) 10 BUN (9 - 20 mg/dL) 11 Creatinine (0.7 - 1.2 mg/dL) 0.6 L Estimated GFR (>60 ml/min) > 60 BUN/Creatinine Ratio (7 - 25 %) 18.3 Lactic Acid (0.7 - 2.1 mmol/L) 0.9 Phosphorus (2.5 - 4.5 mg/dL) 2.2 L Magnesium (1.6 - 2.3 mg/dL) 2.0 Coagulation PT (9.4 - 12.5 SEC) 13.6 H INR (0.90 - 1.17) 1.30 H APTT (25 - 37 SEC) 36 Hematology CBC w Diff NO MAN DIFF REQ WBC (4.8 - 10.8 /CUMM) 8.6 RBC (4.70 - 6.10 /CUMM) 3.23 L Hgb (14.0 - 18.0 G/DL) 10.3 L Hct (42 - 52 %) 30.3 L MCV (80.0 - 94.0 FL) 93.8 MCH (27.0 - 31.0 PG) 31.8 H RDW (11.5 - 14.5 %) 14.6 H Plt Count (130 - 400 /CUMM) 106 L MPV (7.4 - 10.4 FL) 8.1 Gran % (42.2 - 75.2 %) 76.5 H Lymphocytes % (20.5 - 51.1 %) 11.2 L Monocytes % (1.7 - 9.3 %) 12.0 H Eosinophils % (0 - 5 %) 0 Basophils % (0.0 - 2.0 %) 0.3 Absolute Granulocytes (1.4 - 6.5 /CUMM) 6.6 H Absolute Lymphocytes (1.2 - 3.4 /CUMM) 1.0 L Absolute Monocytes (0.10 - 0.60 /CUMM) 1.0 H Absolute Eosinophils (0.0 - 0.7 /CUMM) 0 Absolute Basophils (0.0 - 0.2 /CUMM) 0 PUBS MCHC (33.0 - 37.0 G/DL) 33.9 10/27 01 2203 0600 Chemistry Potassium (3.5 - 5.1 mmol/L) 3.6 Magnesium (1.6 - 2.3 mg/dL) 2.0 Troponin I (<0.11 ng/ml) < 0.01 Cortisol PM Sample (1.7 - 14.1) 26.2 H Hematology CBC w Diff NO MAN DIFF REQ WBC (4.8 - 10.8 /CUMM) 7.7 RBC (4.70 - 6.10 /CUMM) 2.92 L Hgb (14.0 - 18.0 G/DL) 9.5 L Hct (42 - 52 %) 27.2 L MCV (80.0 - 94.0 FL) 93.3 MCH (27.0 - 31.0 PG) 32.5 H RDW (11.5 - 14.5 %) 14.9 H Plt Count (130 - 400 /CUMM) 91 L MPV (7.4 - 10.4 FL) 8.2 Gran % (42.2 - 75.2 %) 71.3 Lymphocytes % (20.5 - 51.1 %) 16.2 L Monocytes % (1.7 - 9.3 %) 12.1 H Eosinophils % (0 - 5 %) 0.1 Basophils % (0.0 - 2.0 %) 0.3 Absolute Granulocytes (1.4 - 6.5 /CUMM) 5.5 Absolute Lymphocytes (1.2 - 3.4 /CUMM) 1.2 Absolute Monocytes (0.10 - 0.60 /CUMM) 0.9 H Absolute Eosinophils (0.0 - 0.7 /CUMM) 0 Absolute Basophils (0.0 - 0.2 /CUMM) 0 PUBS MCHC (33.0 - 37.0 G/DL) 34.8 Diagnostic Data EKG Results EKG on admission showed sinus rhythm at a rate of 89 with incomplete right bundle branch block pattern. EKG on 10/27/2016 at 21:45 shows atrial fibrillation/flutter at a rate of 136 again with incomplete right bundle branch block pattern. EKG done at 1:52 AM on 10/28/2016 showed atrial fibrillation/ flutter rate 124 with incomplete right bundle branch block pattern and some nonspecific T-wave changes. CXR Results PATIENT: NICOLE SPEARS PRESENT AGE: 81 PATIENT ACCOUNT NO: [id number] : 36 LOCATION: [facility] ORDERING PHYSICIAN: BAILEY NUNEZ MD SERVICE DATE: 10/26/16 EXAM TYPE: RAD - XRY-PORTABLE CHEST XRAY EXAMINATION: XR PORTABLE CHEST CLINICAL INFORMATION: Fever. Increasing oxygen requirement. COMPARISON: Chest x-ray 10/25/2016., 07/20/2015 CT of chest 07/18/2016 TECHNIQUE: Portable view of the chest was obtained. FINDINGS: Chronic volume loss of the left hemithorax stable since prior exam. There is persistent chronic density at the left lung base due to a left pleural effusion as seen on CT of chest 07/18/2016.. The right costophrenic angle is now also blunted due to a small right pleural effusion. Increased pulmonary vascularity centrally new since prior exam. Hazy opacity right lung base probably due to the effusion and increased vascularity but a subtle right basilar infiltrate not excluded. IMPRESSION: 1. Chronic density left lung base due to left pleural effusion. 2. New small right pleural effusion. 3. Increased central pulmonary vascularity. 4. Hazy opacity right lung base could be due to the right pleural effusion and increased vascularity but a subtle right basilar infiltrate not excluded. DICTATED BY: PAIGE MIRELES MD DATE/TIME DICTATED:10/26/162254 [employer] CONSULTANT:VIJAYA DATE/TIME TRANSCRIBED:10/26/162254 CONFIDENTIAL, DO NOT COPY WITHOUT APPROPRIATE AUTHORIZATION. <Electronically signed in Other Vendor System> SIGNED BY: PAIGE MIRELES MD 10/26/16 6962 Assessment/Plan Assessment/Plan This patient has been here for a couple of days with pneumonia and pleural effusions. He has underlying malignancy. He does not have a history of heart disease. Last evening he was noted to be tachycardic and EKG documented atrial fibrillation/flutter at a moderate rate. He was brought to the telemetry unit. It appears that he was briefly placed on Cardizem but is no longer on this. He has apparently spontaneously converted to sinus rhythm. I recommend an echocardiogram for further evaluation of his atrial arrhythmias. Because he was in atrial fibrillation for less than 24 hours I would not anticoagulate him at this time. Also he is a high risk for anticoagulation because of his underlying malignancy and general debilitated state. However if he has recurrent atrial fibrillation this will have to be addressed. Copies To: MEGHANN PRESTON,CESAR Turcios; KRISHNA PRESTON,PRANAY Consult Acknowledgment - Thank you for your consult request.
--- NOTE | 2016-10-28 17:18 | RADIOLOGY REPORT ---
PROCEDURE: US GUIDED LEFT THORACENTESIS AND PLACEMENT OF A CHEST TUBE XR CHEST CLINICAL INFORMATION: 81-year-old male with tachycardia and shortness of breath and a CT of the chest done on 10/27/2016, showed 7.2 x 14.6 cm loculated left-sided pleural effusion, thought to be suspicious for empyema. Ultrasound-guided diagnostic thoracentesis and possible chest tube placement is requested. COMPARISON: CT of the chest done on 10/27/2016. MEDICATIONS: 10 mL of Lidocaine 1% was used for local anesthesia. TECHNIQUE/FINDINGS: After all the risks, benefits and alternatives were explained to the patient and all questions answered, consent was provided to proceed. Preintervention limited images of the posterior lower left hemithorax showed a loculated, multi septated pleural effusion. Using ultrasound guidance with the usual sterile interventional technique, a 5-Estonian pigtail catheter was placed into the left pleural cavity at lower posterior lateral aspect of the left hemithorax, and approximately 60 mL of hemorrhagic fluid was aspirated for diagnostic purposes. The catheter was fixed to the skin with silk sutures. The external end of the catheter was connected to waterseal vacuum drainage system. The patient tolerated the procedure well. Specimens were sent for bacteriology, cytology and cell count. IMPRESSION: Ultrasound-guided left thoracentesis yielding 60 mL of hemorrhagic fluid. Chest radiograph: Post procedure chest radiograph shows no evidence of any pneumothorax. There is collapse consolidation identified involving left lower lobe and nonspecific right lung base and left midlung field airspace disease. The catheter is localized to the inferior posterior aspect of the left pleural space. Post thoracentesis, and chest tube placement radiographs show satisfactory position of the chest tube and no evidence of any pneumothorax. PLAN: Please note that the patient was not fasting at the time of the procedure, a larger caliber chest tube could not be placed since patient could not be sedated. If the specimen shows presence of infection, the existing chest tube could potentially be exchanged later for a larger bore catheter if appropriate. For now, the chest tube will be managed as indicated by the multifocal button inspector. Discussed in detail with Dr. Ramirez at 4:32 p.m. on 10/28/2016.
--- NOTE | 2016-10-28 19:07 | PN- Att Addend ---
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 Unchanged since yesterday clinically, became slightly tachycardic overnight, BP low but stable. Labs show positive S.pneumo antigen. NAD NCAT Supple RRR Bilateral coarse breath sounds L>R Soft, NTND No c/c/e Pulses intact A&Ox3 no focal eficits Laboratory Tests 10/28/16 1825: Sodium Pending, Potassium Pending, Chloride Pending, Carbon Dioxide Pending, Anion Gap Pending, BUN Pending, Creatinine Pending, BUN/Creatinine Ratio Pending , Phosphorus Pending, Magnesium Pending 10/28/16 1515: Phlebotomy Draw Site LT THORA, Pleural pH 6.84 10/28/16 1500: Fluid WBC 511 H, Fld Mesothelial Cells 2, Fld Total RBCs Counted 72 H 10/28/16 1500: Lymphocytes 8, % Normal PMNs 90, Fluid Glucose < 20, Fluid Total Protein 2.5, Fluid Albumin 1.3, Fluid LDH 1414, Fluid Amylase < 30 10/28/16 0420: Troponin I < 0.01 10/28/16 0420: Lactic Acid 0.7 10/28/16 0057: Lactic Acid 0.9 10/28/16 0057: Anion Gap 10, Estimated GFR > 60, BUN/Creatinine Ratio 18.3, Phosphorus 2.2 L, Magnesium 2.0, PT 13.6 H, INR 1.30 H, APTT 36 10/28/16 0030: CBC w Diff NO MAN DIFF REQ, RBC 3.23 L, MCV 93.8, MCH 31.8 H, RDW 14.6 H, MPV 8.1, Gran % 76.5 H, Lymphocytes % 11.2 L, Monocytes % 12.0 H, Eosinophils % 0 , Basophils % 0.3, Absolute Granulocytes 6.6 H, Absolute Lymphocytes 1.0 L, Absolute Monocytes 1.0 H, Absolute Eosinophils 0, Absolute Basophils 0, PUBS MCHC 33.9 10/27/16 2203: Magnesium 2.0, Troponin I < 0.01, Cortisol PM Sample 26.2 H Vital Signs Date Time Temp Pulse Resp B/P Pulse O2 O2 Flow FiO2 Ox Delivery Rate 10/28 1741 Nasal 2.0L Cannula Intake & Output 10/28 1600 Intake Total 1000 Output Total Balance 1000 Intake, IV 600 Intake, Oral 400 Plan - Continue on telemetry - Follow pulmonary and cardiology recommendations - Continue Ceftriaxone - Continue IV fluids - Monitor CBC and BEP - IR for thoracentesis - DVT PPx
[2016-10-28 23:47] VITALS: BP 100/44
--- NOTE | 2016-10-29 07:47 | PN- Housestaff ---
BUNNY THOMAS 10/29/16 0747: Subjective Follow-up For: Community acquired pneumonia. History of follicular lymphoma. BILateral heammrohagic , exudative pleural effusion, loculated left-sided effusion, empyema versus malignant effusion s/p thoracocentesis Deconditioning Complaints: no complaints Subjective: I have seen and examined the patient today morning, he will be going for revision of his thoracocentesis chest tube today for insertion of a larger caliber chest tube. He was running a fever of 102.1 yesterday however he remained afebrile overnight. Urine was positive for strep pneumonia antigen with blood cultures were repeated after he spiked a fever on 10/28/2016, we'll continue to follow up at the old on the new blood cultures. Review of Systems Constitutional: Reports: malaise. Denies: chills, diaphoresis, fever, weakness. EENTM: Denies: blurred vision, double vision, visual changes, eye pain. Cardiovascular: Denies: chest pain, edema, orthopena, palpitations, peripheral edema. Respiratory: Reports: short of breath. Denies: cough, hemoptysis, sputum production, stridor. Gastrointestinal: Denies: abdominal pain, bloating, constipation, diarrhea. Genitourinary: Reports: no symptoms. Musculoskeletal: Denies: back pain, gout, joint pain, joint swelling. Skin: Reports: no symptoms. Neurological/Psychological: Reports: no symptoms. Hematologic/Endocrine: Reports: no symptoms. Immunologic/Allergic: Reports: no symptoms. Objective Last 24 Hrs of Vital Signs/I&O Vital Signs Date Time Temp Pulse Resp B/P Pulse O2 O2 Flow FiO2 Ox Delivery Rate 10/29 1639 Nasal 4.0L Cannula 10/29 1601 98.2 75 20 128/59 97 Nasal 4.0L Cannula 10/29 1600 95 Nasal 2.0L Cannula 10/29 1026 Nasal 2.0L Cannula 10/29 0829 97.8 86 18 107/57 96 Nasal 2.0L Cannula 10/29 0000 Nasal 2.0L Cannula 10/28 2347 98.5 82 18 100/44 96 Nasal 3.0L Cannula 10/28 2153 95 Nasal 3.0L Cannula Intake & Output 10/29 1600 10/29 0800 10/29 0000 Intake Total 50 150 700 Output Total 140 60 Balance 50 10 640 Intake, IV 150 300 Intake, Oral 50 0 400 Number 1 Bowel Movements Output, Chest 40 Tube Drainage Output, Other 60 Output, Urine 100 Physical Exam General Appearance: Alert, Oriented X3, Cooperative Skin: No Rashes, No Breakdown HEENT: Atraumatic, PERRLA, EOMI Neck: Supple, No JVD Cardiovascular: Regular Rate, Normal S1, Normal S2, No Murmurs Lungs: decreased air entry bilaterally special in the lower lobe area, decreased breath sounds, No adventitious sounds., chest tube present on the right side, Abdomen: Normal Bowel Sounds, Soft, No Tenderness Neurological: Strength at 5/5 X4 Ext, Normal Tone, Sensation Intact Extremities: No Clubbing, No Cyanosis, No Edema, Normal Pulses Vascular: Normal Pulses Current Medications: Current Medications Sig/Gordon Start time Last Medication Dose Route Stop Time Status Admin Albuterol Sulfate 3 ML Q4-PRN PRN 10/25 1900 AC INH Ceftriaxone Sodium 1,000 MG 1400 10/28 1400 AC 10/29 IV 1705 Fentanyl Citrate 0 .STK-MED ONE 10/29 1450 DC .ROUTE Ferrous Sulfate 325 MG DAILY 10/26 1000 AC 10/29 PO 0855 Lidocaine 0 .STK-MED ONE 10/29 1341 DC .ROUTE Last 24 Hrs of Lab/Mando Results Last 24 Hrs of Labs/Mics: Laboratory Tests 10/29/16 0645: Anion Gap 9, Estimated GFR > 60, BUN/Creatinine Ratio 18.3, Phosphorus 1.7 L, Magnesium 2.2, CBC w Diff NO MAN DIFF REQ, RBC 2.77 L, MCV 94.3 H, MCH 31.9 H , RDW 15.3 H, MPV 7.7, Gran % 64.4, Lymphocytes % 20.5, Monocytes % 14.6 H, Eosinophils % 0.3, Basophils % 0.2, Absolute Granulocytes 3.5, Absolute Lymphocytes 1.1 L, Absolute Monocytes 0.8 H, Absolute Eosinophils 0, Absolute Basophils 0, PUBS MCHC 33.8 Lines/Diet/Fluids Restraints: none Assessment/Plan Assessment: This Is of 81-year-old male with past medical history of follicular lymphoma ( diag : 2 years) ago status post chemotherapy follows up with Dr. Chen), last chemotherapy 3 months ago, came into the emergency department 10/25/2016 after being sent from Dr. Chen's office secondary to sustaining a fall injury. On arrival at the emergency department he complained of weakness and shortness of breath which was worse from his baseline. Exterior of the chest was done which showed consolidation, labs showed increased white count with lactic acidosis. Therefore he was admitted to the general medicine floor for treatment of severe sepsis secondary to community-acquired pneumonia. He was started on IV ceftriaxone and azithromycin, and was hydrated with IV fluids. Patient had a slightly low blood pressure on day 2 of admission, on review of the records it was noted that patient has a tendency to stay a low, and has a baseline low pressure. On 10/29/2016 patient was found to be tachycardic at the rate of 170, EKG showed new T-wave inversions in V1 and V2 V3 and P-wave inversions on 82, troponin was found to be negative, CT was negative for PE, however the patient was transferred to telemetry as her heart rate was as high as 170, he spiked temperature and his blood pressure was low at 80/48. patient continues to be on telemetry for close monitoring and cardiology was consulted.He was found to have bilateral pleural effusion in is now status post thoracocentesis Problem list along with assessment and plan #1 Community-acquired pneumonia. Urine cultures were positive for strep pneumonia antigen. Continue IV ceftriaxone. Continue to follow blood cultures and newly added blood cultures. Pulmonology consult appreciated. Continue to monitor oxygen saturations keeping it above 92% of the time. #2 Bilateral pleural effusion, left-sided loculated infusion status post thoracocentesis and chest tube placement, i.empyema versus malignant effusion. Patient had a thoracocentesis yesterday and pleural fluid was sent for analysis. Pleural fluid was noted to be exudative in nature, it was hemorrhagic however yesterday the chest tube that was inserted and a small caliber and patient went for revision of the chest tube to insert a larger caliber chest tube. Continue to monitor. Continue IV antibiotics with ceftriaxone. Strep pneumonia positive on urine antigen test. PH was noted to be 77.2 consistent with empyema. #3 History of follicular lymphoma. Diagnosis 2 years ago, status post 6 cycles of chemotherapy last one being 6 months ago. Oncology consulted. Could be a pus. He is a pleural effusion could be a malignant effusion related to the malignancy versus an independent on occurrence. #4 History of anemia. No obvious source of bleeding. Continue to monitor Continue iron supplementation #5 protein calorie malnutrition. Patient's body mass index is 16.9 KG per meter square, nutrition consult on board. We'll continue dietary supplements. #6 Hypotension On review of the PCI and previos blood pressure measurements, it doesn tend to run on lower side and his baseline is 90/60 om several occassions. Patient is regular diet DVT prophylaxis with Lovenox CODE STATUS is DNR/DNI Problem List: 1. Pleural effusion 2. Dyspnea 3. Anemia 4. CAP (community acquired pneumonia) 5. Empyema 6. Follicular lymphoma Pain Ratin Pain Location: na Pain Goal: Remain pain free Pain Plan: tylenol Tomorrow's Labs & Rationales: cbc,bep CARLOS PRESTON,DARCI 10/29/16 1516: Attending MD Review Statement Attending Statement Attending MD Statement: examined this patient, discuss w/resident/PA/TRANSPORTATION CONSULTANT, agreed w/resident/PA/TRANSPORTATION CONSULTANT, reviewed EMR data (avail), discussed with nursing Attending Assessment/Plan: 81-year-old male with past medical history of low-grade non-Hodgkin's B-cell follicular lymphoma in the past was here with acute pneumococcal pneumonia with loculated pleural effusion/empyema with a pH of 6.84. Got a pigtail catheter that'll be converted into a chest tube. Treat as per pulmonary. Continue IV ceftriaxone and will closely follow up on the pleural fluid. I reviewed his previous blood pressures and even as far as May 2015 his baseline appears to be 90-100/50-60. If he is asymptomatic will watch him at that pressure.
[2016-10-29 07:57] LABS: ABSOLUTE BASOPHIL COUNT 0 /CUMM (0.0-0.2); ABSOLUTE EOSINOPHIL COUNT 0 /CUMM (0.0-0.7); ABSOLUTE GRANULOCYTE CT 3.5 /CUMM (1.4-6.5); ABSOLUTE LYMPH COUNT 1.1 /CUMM (1.2-3.4); ABSOLUTE MONOCYTE COUNT 0.8 /CUMM (0.10-0.60); BASOPHIL % 0.2 % (0.0-2.0); EOSINOPHIL % 0.3 % (0-5); GRANULOCYTE % 64.4 % (42.2-75.2); HEMATOCRIT 26.1 % (42-52); MEAN CORPUSCULAR HGB 31.9 PG (27.0-31.0); MEAN CORPUSCULAR HGB CONC 33.8 G/DL (33.0-37.0); MEAN CORPUSCULAR VOLUME 94.3 FL (80.0-94.0); MEAN PLATELET VOLUME 7.7 FL (7.4-10.4); PLATELET COUNT 114 /CUMM (130-400); RBC DISTRIBUTION WIDTH 15.3 % (11.5-14.5); RED BLOOD CELL CT 2.77 /CUMM (4.70-6.10); WHITE BLOOD CELL COUNT 5.5 /CUMM (4.8-10.8)
[2016-10-29 08:29] VITALS: BP 107/57
--- NOTE | 2016-10-29 09:31 | PN- Cardiology ---
Subjective Subjective: The patient has remained in sinus rhythm overnight. His follow-up electrocardiogram done at 8:00 last evening showed sinus rhythm at rate of 81 with incomplete right bundle branch block and no acute changes. Objective Vital Signs and I&Os Vital Signs Date Time Temp Pulse Resp B/P Pulse O2 O2 Flow FiO2 Ox Delivery Rate 10/29 828 97.8 86 18 107/57 96 Nasal 2.0L Cannula 10/29 0000 Nasal 2.0L Cannula 10/28 2347 98.5 82 18 100/44 96 Nasal 3.0L Cannula 10/28 2153 95 Nasal 3.0L Cannula 10/28 1741 Nasal 2.0L Cannula 10/28 1021 Nasal 2.0L Cannula Intake & Output 10/29 1600 10/29 0000 10/28 1600 10/28 0000 Intake Total 750 423 7346 1225 600 Output Total 140 60 Balance 10 640 1000 1225 600 Intake, IV 150 633 844 5016 250 Intake, Oral 0 400 400 50 350 Number 1 1 Bowel Movements Output, Chest 40 Tube Drainage Output, Other 60 Output, Urine 100 Physical Exam: He is in no distress. HEENT exam is normal Chest is clear to limited exam Heart reveals regular rhythm and no murmurs There is no peripheral edema Current Medications: Current Medications Sig/Gordon Start time Last Medication Dose Route Stop Time Status Admin Albuterol Sulfate 3 ML Q4-PRN PRN 10/25 1900 AC INH Ceftazidime 1,000 MG IQ8 10/28 0100 DC 10/28 IV 0849 Ceftriaxone Sodium 1,000 MG 1400 10/28 1400 AC 10/28 IV 1234 Ferrous Sulfate 325 MG DAILY 10/26 1000 AC 10/29 PO 0855 Lidocaine 1 ML .STK-MED ONE 10/28 1739 DC ID 10/28 1740 Sodium Bicarbonate 50 MEQ .STK-MED ONE 10/28 1739 DC IV 10/28 1740 Sodium Chloride 1,000 ML Q13H 10/28 0615 DC 10/28 IV 10/28 Vancomycin HCl 1,000 MG DAILY@0100 10/29 0100 CAN Sodium Chloride 250 ML IV Results Last 48 Hrs of Labs/Mics: Laboratory Tests 10/29/16 0645: Anion Gap 9, Estimated GFR > 60, BUN/Creatinine Ratio 18.3, Phosphorus 1.7 L, Magnesium 2.2, CBC w Diff NO MAN DIFF REQ, RBC 2.77 L, MCV 94.3 H, MCH 31.9 H , RDW 15.3 H, MPV 7.7, Gran % 64.4, Lymphocytes % 20.5, Monocytes % 14.6 H, Eosinophils % 0.3, Basophils % 0.2, Absolute Granulocytes 3.5, Absolute Lymphocytes 1.1 L, Absolute Monocytes 0.8 H, Absolute Eosinophils 0, Absolute Basophils 0, PUBS MCHC 33.8 10/28/16 1825: Anion Gap 9, Estimated GFR > 60, BUN/Creatinine Ratio 16.7, Phosphorus 2.1 L, Magnesium 2.0 10/28/16 1515: Phlebotomy Draw Site LT THORA, Pleural pH 6.84 10/28/16 1500: Fluid WBC 511 H, Fld Mesothelial Cells 2, Fld Total RBCs Counted 72 H 10/28/16 1500: Lymphocytes 8, % Normal PMNs 90, Fluid Glucose < 20, Fluid Total Protein 2.5, Fluid Albumin 1.3, Fluid LDH 1414, Fluid Amylase < 30 10/28/16 0420: Troponin I < 0.01 10/28/16 0420: Lactic Acid 0.7 10/28/16 0057: Lactic Acid 0.9 10/28/16 0057: Anion Gap 10, Estimated GFR > 60, BUN/Creatinine Ratio 18.3, Phosphorus 2.2 L, Magnesium 2.0, PT 13.6 H, INR 1.30 H, APTT 36 10/28/16 0030: CBC w Diff NO MAN DIFF REQ, RBC 3.23 L, MCV 93.8, MCH 31.8 H, RDW 14.6 H, MPV 8.1, Gran % 76.5 H, Lymphocytes % 11.2 L, Monocytes % 12.0 H, Eosinophils % 0 , Basophils % 0.3, Absolute Granulocytes 6.6 H, Absolute Lymphocytes 1.0 L, Absolute Monocytes 1.0 H, Absolute Eosinophils 0, Absolute Basophils 0, PUBS MCHC 33.9 10/27/16 2203: Magnesium 2.0, Troponin I < 0.01, Cortisol PM Sample 26.2 H Assessment/Plan Assessment/Plan The patient has been stable from a hemodynamic standpoint. He has remained in sinus rhythm. I would recommend just continued monitoring for another 24-48 hours. I would not add any cardiac medication at this time. We will review his echocardiogram when it is done. Continue telemetry? Yes
--- NOTE | 2016-10-29 11:21 | PN- Pulmonary ---
Subjective HPI/Critical Care Issues: pt seen and examined s/p thoracentesis hemorrhagic exudative consistent with an empyema vs malignant fluid fatigue dyspnea no cp no n/v/d/c Objective Current Medications: Current Medications Sig/Gordon Start time Last Medication Dose Route Stop Time Status Admin Albuterol Sulfate 3 ML Q4-PRN PRN 10/25 1900 AC INH Ceftriaxone Sodium 1,000 MG 1400 10/28 1400 AC 10/28 IV 1234 Ferrous Sulfate 325 MG DAILY 10/26 1000 AC 10/29 PO 0855 Lidocaine 1 ML .STK-MED ONE 10/28 1739 DC ID 10/28 1740 Sodium Bicarbonate 50 MEQ .STK-MED ONE 10/28 1739 DC IV 10/28 1740 Sodium Chloride 1,000 ML Q13H 10/28 714 DC 10/28 IV 10/28 Vital Signs & I&O Last 24 Hrs of Vitals and I&O: Vital Signs Date Time Temp Pulse Resp B/P Pulse O2 O2 Flow FiO2 Ox Delivery Rate 10/29 1026 Nasal 2.0L Cannula 10/29 828 97.8 86 18 107/57 96 Nasal 2.0L Cannula 10/29 0000 Nasal 2.0L Cannula 10/28 2347 98.5 82 18 100/44 96 Nasal 3.0L Cannula 10/28 2153 95 Nasal 3.0L Cannula 10/28 1741 Nasal 2.0L Cannula Intake & Output 10/29 1600 10/29 0800 10/29 0000 Intake Total 150 700 Output Total 140 60 Balance 10 640 Intake, IV 150 300 Intake, Oral 0 400 Number 1 Bowel Movements Output, Chest 40 Tube Drainage Output, Other 60 Output, Urine 100 Exam Other Physical Findings: General - Alert, awake and oriented, cachectic HEENT - normocephalic, atraumatic Cardiovascular - S1, S2 Lungs - diminished breath sounds bilaterally, left chest tube Abdomen - soft, bowel sounds positive, no tenderness Extremities - without edema or cyanosis Results Last 24 Hrs of Lab Results: Laboratory Tests 10/29/16 0645: Anion Gap 9, Estimated GFR > 60, BUN/Creatinine Ratio 18.3, Phosphorus 1.7 L, Magnesium 2.2, CBC w Diff NO MAN DIFF REQ, RBC 2.77 L, MCV 94.3 H, MCH 31.9 H , RDW 15.3 H, MPV 7.7, Gran % 64.4, Lymphocytes % 20.5, Monocytes % 14.6 H, Eosinophils % 0.3, Basophils % 0.2, Absolute Granulocytes 3.5, Absolute Lymphocytes 1.1 L, Absolute Monocytes 0.8 H, Absolute Eosinophils 0, Absolute Basophils 0, PUBS MCHC 33.8 10/28/16 1825: Anion Gap 9, Estimated GFR > 60, BUN/Creatinine Ratio 16.7, Phosphorus 2.1 L, Magnesium 2.0, Lactate Dehydrogenase 308 L 10/28/16 1515: Phlebotomy Draw Site LT THORA, Pleural pH 6.84 10/28/16 1500: Fluid WBC 511 H, Fld Mesothelial Cells 2, Fld Total RBCs Counted 72 H 10/28/16 1500: Lymphocytes 8, % Normal PMNs 90, Fluid Glucose < 20, Fluid Total Protein 2.5, Fluid Albumin 1.3, Fluid LDH 1414, Fluid Amylase < 30 Impression/Plan Impression/Plan Impression/Plan: Impression 81 year old man * Loculated left sided pleural effusion, right sided effusion * airpsace disease consistent with pneumonia secondary to likely streptococcal pneumonia given positive antigen * exudative effusion consistent with empyema vs malignant fluid * Follicular lymphoma * Fatigue, deconditioning Plan - discussed with IR, plan for changing over 5 dominican cathter to a larger bore chest tube at least 12 or 14 dominican - cont drainage, will call CT surgery for lytic therapy - cont ceftriaxone - + strep pneumo - spo2 goal >88% DVT prophylaxis at all times
[2016-10-29 16:01] VITALS: BP 128/59
--- NOTE | 2016-10-29 16:24 | INTERVENTIONAL RADIOLOGY RPT ---
PROCEDURE: Fluoroscopic Guided Chest Tube conversion and upsizing. HISTORY: NICOLE SPEARS is a 81 years old Male with lymphoma, shortness of breath, and a large left pleural effusion. The patient is status post thoracentesis, at which time the 6 [place] one-step drainage catheter was left behind given a large residual volume of fluid. Now it has been determined the patient may need this drain catheter for extended time with possible administration of TPA. Therefore, the patient present for upsize of the tube. The existing tube also demonstrated a kink on chest x-ray. ACCESS: Via existing 6 [place] catheter CLINICIAN(S): Mike Lo MD Vascular Interventional Radiologist CONSENT: Informed consent was obtained from the patient prior to the procedure. During this process, the procedure and potential alternatives were explained along with the intended outcome and benefits. The risks of the procedure, including the possibility of an unsuccessful procedure as well as the risk of not doing the procedure were discussed. The patient was given the opportunity to ask any questions regarding the procedure and appeared competent to make medical decisions. A signed consent form which documents this discussion was placed in the medical record. A timeout procedure was performed. MEDICATIONS: 10ml 1% lidocaine. 25 mcg fentanyl TECHNIQUE/FINDINGS: Appropriate pre-procedure medical history and imaging studies were reviewed. The patient was placed supine on the scanner table. Fluoroscopic images of the left thorax were obtained to localize a moderate to large pneumothorax. Images were permanently saved to the record. An area of the patient's left back and flank was prepped and draped in the standard sterile fashion. 10 mL of 1% lidocaine was used to obtain local anesthesia of the skin and deeper tissues. A guidewire was then placed through the existing catheter into the chest. The access site was then sequentially dilated using dilators sized 8 Fr and 10 Fr. Given the thin pleural fluid, a 10 Fr catheter was then advanced over the wire into the chest cavity. The wire was removed and the catheter was secured to the skin with a single suture and a sterile dressing was placed over the site. The catheter was then connected to a closed chest drainage system. Final fluoroscopic imaging demonstrated appropriate position of the catheter. The patient tolerated the procedure well without evidence of complications. IMPRESSION: Successful fluoroscopic guided upsize of left chest tube to 10 [place] as described.
--- NOTE | 2016-10-29 20:57 | Discharge Summary ---
Visit Information Visit Dates Admission Date: 10/25/16 Discharge Date: 11/07/16 Hospital Course Course Attending Physician: AGAPITO PRESTON,LINDA Primary Care Physician: KRISHNA PRESTON,[facility] Course: This is of 81-year-old male with past medical history of follicular lymphoma ( diag : 2 years ago status post chemotherapy (follows up with Dr. Chen), last chemotherapy 3 months ago, came into the emergency department 10/25/2016 after being sent from Dr. Chen's office secondary to sustaining a fall injury. On arrival at the emergency department he complained of weakness and shortness of breath which was worse from his baseline. xray of the chest was done which showed consolidation, labs showed increased white count with lactic acidosis. Therefore he was admitted to the general medicine floor for treatment of severe sepsis secondary to community-acquired pneumonia. He was started on IV ceftriaxone and azithromycin, and was hydrated with IV fluids. Patient had a slightly low blood pressure on day 2 of admission, on review of the records it was noted that patient has a tendency to stay low, and has a baseline low pressure. On 10/29/2016 patient was found to be tachycardic at the rate of 170, EKG showed new T-wave inversions in V1 and V2 V3, troponin was found to be negative, CT was negative for PE, however the patient was transferred to telemetry as her heart rate was as high as 170, he spiked temperature and his blood pressure was low at 80/48. patient continues to be on telemetry for close monitoring and cardiology was consulted.He was found to have bilateral pleural effusion in is now status post thoracocentesis iwht lytic therapy. Problem list along with assessment and plan #1 Community-acquired pneumonia/ strep pnuemococcal pnuemonia Urine cultures were positive for strep pneumonia antigen He was continue on treatment for strep pnuemococcal pnuemonia Continue IV ceftriaxone, which was switched to PO ceftin which was planned to continue for a totla of 21 days 2/2 to empyema.Pulmonology was on board, oxygen was continued to be tapered as tolerated. #2 Bilateral pleural effusion, left-sided loculated infusion status post thoracocentesis and lytic therapy + chest tube placement, empyema. * IT was noted that the patient was found to have bilateral plueral effusino with loculations.He underwent thoracocentesis 10/28/16 and revision 10/29/16 ( bigger catheter put in in place of pig tial put in initially) and pleural fluid was sent for analysis and cytology, which was negative for malignancy. * Pleural fluid was noted to be exudative in nature consistent with emypema and infectious etiology,he recieved lytic therapy. * HE was continue treatment with ceftrione whic hwas then switched to PO ceftin, . * Patient recieved lytic therapy on multiple occasions to break the loculations and was connected to monitored, He recieved lytic therapy on atleast 4 to 5 occasions. Pulmonology and thoracic surgery as on board.Oncology was laos consulted 2/ to h/o follicular lymphoma, however this was deemed more infectious in origin rather than malignancy induced. * oncology input appreciated. #3 History of Follicular Lymphoma. * Diagnosis 2 years ago, status post 6 cycles of chemotherapy last one being 6 months ago. * Stable. #4 History of Anemia. * PAtient was continued on iron supplementation #5 Protein Calorie Malnutrition. * Patient's body mass index is 16.9.Nutrition consult was on board.Mr lema was given ensure enlive BID, however his PO intake kept varying 10% to 100% and he was in very low spirits. FC DVt Px : ALPS Rpt Chest X ray PA/Lat view in 1 week on 11/14/15 to look for resolution of symptoms. Allergies: Uncoded Allergies: SEASONAL (UNKNOWN 06/09/15) Significant Procedures: SERVICE DATE: 10/25/16-1147 EXAM TYPE: RAD - XRY-CHEST XRAY, PA AND LATERAL IMPRESSION: 1. Redemonstrated chronic small left pleural effusion. 2. Mild hazy/patchy right basilar opacity may reflect atelectasis or developing consolidation. 3. Curvilinear density at the right apex of uncertain etiology. This does not have the typical appearance for pneumothorax, though a trace pneumothorax is difficult to entirely exclude. If there is clinical concern for pneumothorax, an expiratory chest radiograph may be helpful. SERVICE DATE: 10/27/16- EXAM TYPE: CAT - CT CHEST WO IV CONTRAST IMPRESSION: 1. An exudative loculated left pleural effusion continues to increase in volume. 2. Progressive mediastinal and now internal mammary lymphadenopathy. 3. Progressive consolidation in the left lung and now in the right lower lobe. Active airspace disease is favored. 4. New layering right effusion. 5. Progressive adenopathy in the upper abdomen. 6. A left thoracentesis can be considered for diagnostic purposes. SERVICE DATE: 10/27/16 EXAM TYPE: CAT - CTA CHEST-PULMONARY EMBOLISM EXAMINATION: CT ANGIOGRAM OF THE CHEST WITH AND WITHOUT CONTRAST (CT PULMONARY ANGIOGRAM FOR PE) IMPRESSION: 1. Adequate contrast opacification of the pulmonary arterial vasculature, without evidence of pulmonary embolism. 2. A 7.2 x 14.6 cm loculated left-sided pleural effusion with a split pleural sign, suspicious for empyema. Consider interventional radiology consultation to assess for diagnostic left-sided thoracentesis. 3. Airspace consolidation within the right lower lobe as well as within the lingula, left upper and left lower lobes, suspicious for a multifocal infectious process. These infiltrates do not appear significantly changed relative to the most recent chest CT. 4. Small right-sided pleural effusion. 5. Mildly prominent thoracic adenopathy, as detailed above. VTE: Negative. SERVICE DATE: 10/28/16152 EXAM TYPE: RAD - US-THORACENTESIS; XRY-CHEST XRAY, PA AND LATERAL IMPRESSION: Ultrasound-guided left thoracentesis yielding 60 mL of hemorrhagic fluid. Chest radiograph: Post procedure chest radiograph shows no evidence of any pneumothorax. There is collapse consolidation identified involving left lower lobe and nonspecific right lung base and left midlung field airspace disease. The catheter is localized to the inferior posterior aspect of the left pleural space. Post thoracentesis, and chest tube placement radiographs show satisfactory position of the chest tube and no evidence of any pneumothorax. PLAN: Please note that the patient was not fasting at the time of the procedure, a larger caliber chest tube could not be placed since patient could not be sedated. If the specimen shows presence of infection, the existing chest tube could potentially be exchanged later for a larger bore catheter if appropriate. For now, the chest tube will be managed as indicated by the supervisor [employer]. SERVICE DATE: 10/29/16 EXAM TYPE: IR - DRAINAGE CATHETER CHANGE; INTERVENTIONAL SETUP PROCEDURE: Fluoroscopic Guided Chest Tube conversion and upsizing. IMPRESSION: Successful fluoroscopic guided upsize of left chest tube to 10 Citizen Of [place] as described. SERVICE DATE: 11/01/16- EXAM TYPE: CARD - ECHOCARDIOGRAM REGAN NICOLE Age: 81 : 1935 Gender: M Exam Date: 11/01/2016 09:56 Exam Location: [facility] Ht (in): 72 Wt (lb): 131 BSA: 1.72 BP: 128 / 59 Ordering Physician: AMADEO PETERSON MD Referring Physician: AMADEO PETERSON MD Technologist: Pepe Fajardo [facility] Room Number: [id number] Indications: AFIB/FLUTTER Rhythm: Sinus Technical Quality: Good FINDINGS Left Ventricle Normal left ventricular size, wall thickness and systolic function with no obvious regional wall motion abnormalities. The ejection fraction is visually estimated at >65 %. Abnormal relaxation filling pattern of the left ventricle for age (stage 1 diastolic dysfunction). Right Ventricle The right ventricle is normal in size and function. Right Atrium The right atrium is normal in size. Left Atrium The left atrium is normal in size. The interatrial septum is intact. Mitral Valve Mild thickening/calcification of the mitral valve leaflets. trace mitral regurgitation. Aortic Valve Focal thickening of the aortic valve cusps. No aortic stenosis. Trace aortic regurgitation. Tricuspid Valve The tricuspid valve is normal in structure and function. There is trace tricuspid regurgitation. Pulmonary artery systolic pressure is normal. Pulmonic Valve Structurally normal pulmonic valve. There is trace pulmonic regurgitation. Pericardium Trace pericardial effusion. Left pleural effusion. Great Vessels Normal aortic root dimension. The aortic arch and great vessels are well seen and are normal. CONCLUSIONS Normal left ventricular size, wall thickness and systolic function with no obvious regional wall motion abnormalities. The left atrium is normal in size. Mild thickening/calcification of the mitral valve leaflets. Focal thickening of the aortic valve cusps. No aortic stenosis. Trace aortic regurgitation. Pulmonary artery systolic pressure is normal. Trace pericardial effusion. Left pleural effusion. SERVICE DATE: 11/05/16- EXAM TYPE: CAT - CT CHEST WO IV CONTRAST IMPRESSION: 1. Interval slight decrease in size of left-sided pleural effusion status post pleural catheter placement. A moderate size residual left-sided complex hydropneumothorax is seen. 2. No significant change in small simple right-sided pleural effusion. 3. Left lower lobe consolidation and volume loss, similar to the prior exam. 4. Right lower lobe consolidation improved when compared to 10/27/2016. 5. No significant change in borderline mediastinal and right hilar adenopathy . 6. Left maxillary sinus disease. Pertinent Lab Results: Laboratory Tests 11/06 11/05 0649 0640 Chemistry Sodium (137 - 145 mmol/L) 134 L 134 L Potassium (3.5 - 5.1 mmol/L) 4.8 4.7 Chloride (98 - 107 mmol/L) 98 98 Carbon Dioxide (22 - 30 mmol/L) 30 31 H Anion Gap (5 - 16) 6 5 BUN (9 - 20 mg/dL) 14 14 Creatinine (0.7 - 1.2 mg/dL) 0.5 L 0.5 L Estimated GFR (>60 ml/min) > 60 > 60 BUN/Creatinine Ratio (7 - 25 %) 28.0 H 28.0 H Magnesium (1.6 - 2.3 mg/dL) 2.3 Hematology CBC w Diff NO MAN DIFF REQ NO MAN DIFF REQ WBC (4.8 - 10.8 /CUMM) 5.7 6.1 RBC (4.70 - 6.10 /CUMM) 3.06 L 2.97 L Hgb (14.0 - 18.0 G/DL) 9.6 L 9.2 L Hct (42 - 52 %) 28.6 L 27.7 L MCV (80.0 - 94.0 FL) 93.5 93.4 MCH (27.0 - 31.0 PG) 31.2 H 30.9 RDW (11.5 - 14.5 %) 15.2 H 15.0 H Plt Count (130 - 400 /CUMM) 290 279 MPV (7.4 - 10.4 FL) 7.7 7.7 Gran % (42.2 - 75.2 %) 63.7 58.6 Lymphocytes % (20.5 - 51.1 %) 23.4 29.0 Monocytes % (1.7 - 9.3 %) 12.0 H 10.7 H Eosinophils % (0 - 5 %) 0.5 1.4 Basophils % (0.0 - 2.0 %) 0.4 0.3 Absolute Granulocytes (1.4 - 6.5 /CUMM) 3.6 3.6 Absolute Lymphocytes (1.2 - 3.4 /CUMM) 1.3 1.8 Absolute Monocytes (0.10 - 0.60 /CUMM) 0.7 H 0.6 Absolute Eosinophils (0.0 - 0.7 /CUMM) 0 0.1 Absolute Basophils (0.0 - 0.2 /CUMM) 0 0 PUBS MCHC (33.0 - 37.0 G/DL) 33.3 33.1 Disposition Summary Disposition Principal Diagnosis: 1/ stretococcal pnuemonia 2. B/l plueral effusion - empyema s/p thoracocentesis with chest tube placement and removal. 3. Moderate protein energy malnutrition Additional Diagnosis: 4. H/o follicular lyphoma Discharge Disposition: STR Discharge Instructions General Discharge Information Code Status: Do Not Resucitate/Intubat Patient's Diet: regualr Patient's Activity: as tolarated. Follow-Up Instructions/Appts: please follow up with your lung doctor, pcp within one week of discharge. please continue to take your medications as prescribed. please continue to work with physical therapy. Medications at Discharge Discharge Medications: Continue taking these medications: Ferrous Sulfate (Ferrous Sulfate) 220 MG/5 ML ROSEMARY 5 Milliliters ORAL DAILY Qty = 473 Comments: LAST TAKEN 10 AM 06/10 Start taking the following new medications: Cefuroxime Axetil (Cefuroxime) 250 MG TABLET 1 Tablet ORAL TWICE DAILY Days = 8 No Refills Copies To: KRISHNA PRESTON,GARO AUSTIN MD,MARLIN Attending MD Review Statement Documenting Attending: AGAPITO PRESTON,LINDA
[2016-10-29 21:47] VITALS: BP 108/40
[2016-10-30 00:33] VITALS: BP 124/42
--- NOTE | 2016-10-30 07:42 | PN- Housestaff ---
BUNNY THOMAS 10/30/16 0740: Subjective Follow-up For: -Community acquired pneumonia. -History of follicular lymphoma. -Bilateral hemmorhagic , exudative pleural effusion, loculated left-sided effusion, Empyema versus -s/p thoracocentesis -Deconditioning Complaints: no complaints Subjective: I have seen and examined the patient today morning, he was doing fine, his plueral fluid is still draining, however the amount has decreased, aread around the chest tube is clear, no exudate, no erythema, he didnot have any new complaint.He had a low grade tempreature overnight ,but today morning is afebrile. Review of Systems Constitutional: Reports: malaise. Denies: chills, diaphoresis, fever, weakness. Cardiovascular: Denies: chest pain, edema, orthopena, palpitations. Respiratory: Denies: cough, hemoptysis, orthopnea, short of breath. Gastrointestinal: Denies: abdominal pain, bloating, constipation, diarrhea, distention. Genitourinary: Denies: discharge, dysuria, frequency, hematuria. Musculoskeletal: Reports: no symptoms. Skin: Reports: no symptoms. Objective Last 24 Hrs of Vital Signs/I&O Vital Signs Date Time Temp Pulse Resp B/P Pulse O2 O2 Flow FiO2 Ox Delivery Rate 10/30 0033 100.0 86 18 124/42 95 Room Air 10/30 0000 Nasal 2.0L Cannula 10/29 2152 91 Room Air Room Air 10/29 2147 87 18 108/40 10/29 1639 Nasal 4.0L Cannula 10/29 1601 98.2 75 20 128/59 97 Nasal 4.0L Cannula 10/29 1600 95 Nasal 2.0L Cannula 10/29 1026 Nasal 2.0L Cannula 10/29 0829 97.8 86 18 107/57 96 Nasal 2.0L Cannula Intake & Output 10/30 0800 10/30 0000 10/29 1600 Intake Total 420 50 Output Total 34 150 Balance -34 270 50 Intake, IV 20 Intake, Oral 400 50 Output, Chest 34 150 Tube Drainage Physical Exam General Appearance: Alert, Oriented X3, Cooperative, No Acute Distress Skin: No Rashes, No Breakdown HEENT: Atraumatic, PERRLA, EOMI Neck: Supple, No JVD Lymphatic: no lad Cardiovascular: Normal S1, Normal S2, No Murmurs Lungs: Normal Air Movement, chest on the left lateral side of thorax present, no erythema, site clean Abdomen: Normal Bowel Sounds, Soft, No Tenderness Neurological: Strength at 5/5 X4 Ext, Normal Tone, Sensation Intact, Cranial Nerves 3-12 NL, Reflexes 2+ Extremities: No Clubbing, No Cyanosis, No Edema, Normal Pulses Vascular: Normal Pulses Current Medications: Current Medications Sig/Gordon Start time Last Medication Dose Route Stop Time Status Admin Albuterol Sulfate 3 ML Q4-PRN PRN 10/25 1900 AC INH Ceftriaxone Sodium 1,000 MG 1400 10/28 1400 AC 10/29 IV 1705 Fentanyl Citrate 0 .STK-MED ONE 10/29 1450 DC .ROUTE Ferrous Sulfate 325 MG DAILY 10/26 1000 AC 10/29 PO 0855 Lidocaine 0 .STK-MED ONE 10/29 1341 DC .ROUTE Lines/Diet/Fluids Restraints: none Assessment/Plan Assessment: This is of 81-year-old male with past medical history of follicular lymphoma ( diag : 2 years) ago status post chemotherapy follows up with Dr. Chen), last chemotherapy 3 months ago, came into the emergency department 10/25/2016 after being sent from Dr. Chen's office secondary to sustaining a fall injury. On arrival at the emergency department he complained of weakness and shortness of breath which was worse from his baseline. xray of the chest was done which showed consolidation, labs showed increased white count with lactic acidosis. Therefore he was admitted to the general medicine floor for treatment of severe sepsis secondary to community-acquired pneumonia. He was started on IV ceftriaxone and azithromycin, and was hydrated with IV fluids. Patient had a slightly low blood pressure on day 2 of admission, on review of the records it was noted that patient has a tendency to stay a low, and has a baseline low pressure. On 10/29/2016 patient was found to be tachycardic at the rate of 170, EKG showed new T-wave inversions in V1 and V2 V3 and P-wave inversions on 82, troponin was found to be negative, CT was negative for PE, however the patient was transferred to telemetry as her heart rate was as high as 170, he spiked temperature and his blood pressure was low at 80/48. patient continues to be on telemetry for close monitoring and cardiology was consulted.He was found to have bilateral pleural effusion in is now status post thoracocentesis Problem list along with assessment and plan #1 Community-acquired pneumonia. * Urine cultures were positive for strep pneumonia antigen. * Continue IV ceftriaxone. * No growth on blood cultures so far, Continue to follow blood cultures and newly added blood cultures. * Pulmonology consult appreciated. * Continue to monitor oxygen saturations keeping it above 92% of the time. #2 Bilateral pleural effusion, left-sided loculated infusion status post thoracocentesis and chest tube placement, i.empyema versus malignant effusion. * Patient had a thoracocentesis 10/28/16 and revision 10/29/16 and pleural fluid was sent for analysis and cytology. * Pleural fluid was noted to be exudative in nature consistent with emypema, possibly infectious etiology. * cytology still awaited. * Looks less likely to be 2/2 to malignancy, as the diff on PF is mainly nuetrophils and in the setting of other infective findings, more likely to be infective. * Continue IV antibiotics with ceftriaxone. * Patient recieved lytic therapy today to break the locualtions in the PF * Dr Costa will be seeing the patient tmrw. #3 History of follicular lymphoma. * Diagnosis 2 years ago, status post 6 cycles of chemotherapy last one being 6 months ago. * Oncology consulted, will see tmrw. #4 History of anemia. * No obvious source of bleeding. * Continue to monitor * Continue iron supplementation #5 protein calorie malnutrition. * Patient's body mass index is 16.9 * nutrition consult appreciated. * Continue ensure enlive BID, however PO intake has been varying form 10% to 100 % #6 Hypotension * On review of the PCI and previos blood pressure measurements, it doesn tend to run on lower side and his baseline is 90/60 om several occassions. #7 Telemetry * Cardiology on board, patient is in NSR, need to monitor another 24 hours on telemetry montior. Patient is regular diet DVT prophylaxis with Lovenox CODE STATUS is DNR/DNI Problem List: 1. Pleural effusion 2. Dyspnea 3. Anemia 4. CAP (community acquired pneumonia) Pain Ratin Pain Location: tylenol Pain Goal: Remain pain free Pain Plan: tylenol Tomorrow's Labs & Rationales: cbc, bep CARLOS PRESTON,DARCI 10/30/16 0954: Attending MD Review Statement Attending Statement Attending MD Statement: examined this patient, discuss w/resident/PA/OBGYN NURSE, agreed w/resident/PA/OBGYN NURSE, reviewed EMR data (avail), discussed with nursing Attending Assessment/Plan: 9-year-old male with acute bilateral pneumococcal pneumonia with pneumococcal empyema. He now has a chest tube placed. Given that his Gram stain was positive and he has a predominance of neutrophils in his pleural fluid I don't think this is a malignancy related effusion. Nonetheless we'll follow up on cytology and on follow-up. Will discuss care of chest tube with pulmonary.
[2016-10-30 08:22] VITALS: BP 122/60
--- NOTE | 2016-10-30 09:10 | Patient Discharge Instructions ---
Discharge Instructions General Discharge Information You were seen/treated for: pnuemonia and plueral effusion Special Instructions: 1. please follow up with your PCP and haemoncologist within one to two weeks of discharge. 2. please continue to take medications as prescribed. 3. Rpr X ray in a week on 11/14/16 to look for resolution of effusion. Pls CC results to Dr. Ramirez and his oncology Diet Continue normal diet: No Recommended Diet: Heart Healthy Acute Coronary Syndrome Inclusion Criteria At DC or during hospital stay patient has or had the following: ACS DIAGNOSIS No Discharge Core Measures Meds if any: Prescribed or Continued at Discharge Meds if any: NOT Prescribed or Continued at Discharge Congestive Heart Failure Inclusion Criteria At DC or during hospital stay patient has or had the following: CHF DIAGNOSIS No Discharge Core Measures Meds if any: Prescribed or Continued at Discharge Meds if any: NOT Prescribed or Continued at Discharge Cerebrovascular accident Inclusion Criteria At DC or during hospital stay patient has or had the following: CVA/TIA Diagnosis No Discharge Core Measures Meds if any: Prescribed or Continued at Discharge Meds if any: NOT Prescribed or Continued at Discharge Venous thromboembolism Inclusion Criteria VTE Diagnosis No VTE Type NONE VTE Confirmed by (Test) NONE Discharge Core Measures - Per Current guidelines, there needs to be overlap - treatment for the first 5 days of Warfarin therapy. - If discharged on Warfarin prior to 5 days of - overlap therapy, the patient will need to be - assessed for post discharge needs including - *Post discharge parental anticoagulation - *Warfarin and/or parental anticoagulation education - *Follow up date to check INR post discharge At least 5 days overlap therapy as Inpatient No Meds if any: Prescribed or Continued at Discharge Note: Overlap Therapy is Warfarin and Anticoagulant Meds if any: NOT Prescribed or Continued at Discharge
--- NOTE | 2016-10-30 09:44 | NUR ---
PHYSICAL THERAPY. Pt REFUSED TO WORK WITH PT AT THIS TIME DESPITE ENCOURAGEMENT AND EDUCATION ON BENEFITS. Pt REPORTS HE JUST ATE BREAKFAST AND WISHES TO REST. PT WILL F/U APPROPRIATE.
--- NOTE | 2016-10-30 10:20 | PN- Pulmonary ---
Subjective HPI/Critical Care Issues: pt seen and examined s/p revision of pleural catheter lethargic but arousable minimal drainage no n/v/d/c no cp dyspnea with exertion Objective Current Medications: Current Medications Sig/Gordon Start time Last Medication Dose Route Stop Time Status Admin Albuterol Sulfate 3 ML Q4-PRN PRN 10/25 1900 AC INH Alteplase, 2 MG ONE ONE 10/30 0900 DC Recombinant IV 10/30 0901 Ceftriaxone Sodium 1,000 MG 1400 10/28 1400 AC 10/29 IV 1705 Fentanyl Citrate 0 .STK-MED ONE 10/29 1450 DC .ROUTE Ferrous Sulfate 325 MG DAILY 10/26 1000 AC 10/30 PO 0945 Lidocaine 0 .STK-MED ONE 10/29 1341 DC .ROUTE Vital Signs & I&O Last 24 Hrs of Vitals and I&O: Vital Signs Date Time Temp Pulse Resp B/P Pulse O2 O2 Flow FiO2 Ox Delivery Rate 10/30 0844 94 Nasal 3.5L Cannula 10/30 0822 98.2 82 20 122/60 96 Nasal 3.5L Cannula 10/30 0033 100.0 86 18 124/42 95 Room Air 10/30 0000 Nasal 2.0L Cannula 10/29 2152 91 Room Air Room Air 10/29 2147 87 18 108/40 10/29 1639 Nasal 4.0L Cannula 10/29 1601 98.2 75 20 128/59 97 Nasal 4.0L Cannula 10/29 1600 95 Nasal 2.0L Cannula 10/29 1026 Nasal 2.0L Cannula Intake & Output 10/30 1600 10/30 0800 10/30 0000 Intake Total 420 Output Total 34 150 Balance -34 270 Intake, IV 20 Intake, Oral 400 Output, Chest 34 150 Tube Drainage Exam Other Physical Findings: General - Alert, awake and oriented, cachectic HEENT - normocephalic, atraumatic Cardiovascular - S1, S2 Lungs - diminished breath sounds bilaterally, left chest tube Abdomen - soft, bowel sounds positive, no tenderness Extremities - without edema or cyanosis Impression/Plan Impression/Plan Impression/Plan: Impression 81 year old man * Loculated left sided pleural effusion, right sided effusion * airpsace disease consistent with pneumonia secondary to likely streptococcal pneumonia given positive antigen * exudative effusion consistent with empyema vs malignant fluid * Follicular lymphoma * Fatigue, deconditioning Plan - revised pleural catheter - cont drainage, CT surgery for lytic therapy - cont ceftriaxone - + strep pneumo - spo2 goal >88% DVT prophylaxis at all times
--- NOTE | 2016-10-30 11:07 | PN- Cardiology ---
Subjective Subjective: The patient remains in sinus rhythm. There have been no further episodes of atrial fibrillation. He had thoracentesis showing empyema and is now being treated with chest tube drainage. Objective Vital Signs and I&Os Vital Signs Date Time Temp Pulse Resp B/P Pulse O2 O2 Flow FiO2 Ox Delivery Rate 10/30 0844 94 Nasal 3.5L Cannula 10/30 08 98.2 82 20 122/60 96 Nasal 3.5L Cannula 10/30 0033 100.0 86 18 124/42 95 Room Air 10/30 0000 Nasal 2.0L Cannula 10/29 2152 91 Room Air Room Air 10/29 2147 87 18 108/40 10/29 1639 Nasal 4.0L Cannula 10/29 1601 98.2 75 20 128/59 97 Nasal 4.0L Cannula 10/29 1600 95 Nasal 2.0L Cannula Intake & Output 10/30 1600 10/30 0800 10/30 0000 10/29 1600 10/29 0800 10/29 0000 Intake Total 420 50 150 700 Output Total 34 150 140 60 Balance -34 270 50 10 640 Intake, IV 20 150 300 Intake, Oral 400 50 0 400 Number 1 Bowel Movements Output, Chest 34 150 40 Tube Drainage Output, Other 60 Output, Urine 100 Current Medications: Current Medications Sig/Gordon Start time Last Medication Dose Route Stop Time Status Admin Albuterol Sulfate 3 ML Q4-PRN PRN 10/25 1900 AC INH Alteplase, 2 MG ONE ONE 10/30 0900 DC Recombinant IV 10/30 0901 Ceftriaxone Sodium 1,000 MG 1400 10/28 1400 AC 10/29 IV 1705 Fentanyl Citrate 0 .STK-MED ONE 10/29 1450 DC .ROUTE Ferrous Sulfate 325 MG DAILY 10/26 1000 AC 10/30 PO 0945 Lidocaine 0 .STK-MED ONE 10/29 1341 DC .ROUTE Results Last 48 Hrs of Labs/Mics: Laboratory Tests 10/29/16 0645: Anion Gap 9, Estimated GFR > 60, BUN/Creatinine Ratio 18.3, Phosphorus 1.7 L, Magnesium 2.2, CBC w Diff NO MAN DIFF REQ, RBC 2.77 L, MCV 94.3 H, MCH 31.9 H , RDW 15.3 H, MPV 7.7, Gran % 64.4, Lymphocytes % 20.5, Monocytes % 14.6 H, Eosinophils % 0.3, Basophils % 0.2, Absolute Granulocytes 3.5, Absolute Lymphocytes 1.1 L, Absolute Monocytes 0.8 H, Absolute Eosinophils 0, Absolute Basophils 0, PUBS MCHC 33.8 10/28/16 1825: Anion Gap 9, Estimated GFR > 60, BUN/Creatinine Ratio 16.7, Phosphorus 2.1 L, Magnesium 2.0, Lactate Dehydrogenase 308 L 10/28/16 1515: Phlebotomy Draw Site LT THORA, Pleural pH 6.84 10/28/16 1500: Fluid WBC 511 H, Fld Mesothelial Cells 2, Fld Total RBCs Counted 72 H 10/28/16 1500: Lymphocytes 8, % Normal PMNs 90, Fluid Glucose < 20, Fluid Total Protein 2.5, Fluid Albumin 1.3, Fluid LDH 1414, Fluid Amylase < 30 Assessment/Plan Assessment/Plan The patient has been stable from a hemodynamic standpoint. He has remained in sinus rhythm. I would recommend just continued monitoring for another 24 hours. I would not add any cardiac medication at this time. We will review his echocardiogram when it is done. If he remains in sinus rhythm for another 24 hours telemetry can be discontinued and he can return to [facility]. Continue telemetry? Yes
--- NOTE | 2016-10-30 12:49 | Event Note ---
Event Note Event Note: Alteplase 2mg in 20ml followed by 5ml ns flush injected into left thoracic pleural cath. patient tolerated procedure well. will clamp cath for 4hr that restart suction. dr casiano aware.
[2016-10-30 14:05] LABS: ABSOLUTE BASOPHIL COUNT 0 /CUMM (0.0-0.2); ABSOLUTE EOSINOPHIL COUNT 0 /CUMM (0.0-0.7); ABSOLUTE LYMPH COUNT 1.2 /CUMM (1.2-3.4); ABSOLUTE MONOCYTE COUNT 0.6 /CUMM (0.10-0.60); BASOPHIL % 0.5 % (0.0-2.0); EOSINOPHIL % 0.4 % (0-5); GRANULOCYTE % 62.1 % (42.2-75.2); HEMATOCRIT 29.7 % (42-52); MEAN CORPUSCULAR HGB 31.5 PG (27.0-31.0); MEAN CORPUSCULAR HGB CONC 33.5 G/DL (33.0-37.0); MEAN PLATELET VOLUME 7.6 FL (7.4-10.4); PLATELET COUNT 158 /CUMM (130-400); RBC DISTRIBUTION WIDTH 15.2 % (11.5-14.5); RED BLOOD CELL CT 3.16 /CUMM (4.70-6.10); WHITE BLOOD CELL COUNT 4.9 /CUMM (4.8-10.8)
--- NOTE | 2016-10-30 16:15 | NUR ---
NSG NOTE: STOPCOCK CHEST PIGTAIL OPENNED TO DRAIN INTO WATERSEAL AFTER 4HRS INDWELLING ALTEPLACE
[2016-10-30 16:18] VITALS: BP 108/50
--- NOTE | 2016-10-30 17:35 | Cons- Thoracic Surgery ---
General Information and HPI Consulting Request Date of Consult: 10/30/16 Requested By: CARLOS PRESTON,DARCI Ramirez Reason for Consult: Help in management for left-sided empyema Source of Information: patient, old records, PCP Exam Limitations: no limitations History of Present Illness: The patient is an 81-year-old gentleman admitted with generalized weakness lethargy and a cough. On admission he was found to have a complicated left sided pleural effusion. Pulmonary consultation asked for drainage with catheter placement. The fluid analysis is consistent with an empyema. Thoracic surgical evaluation is asked for help in management and treatment. Allergies/Medications Allergies: Uncoded Allergies: SEASONAL (UNKNOWN 06/09/15) Home Med List: Ferrous Sulfate 220 MG/5 ML ROSEMARY 5 ML PO DAILY ANEMIA (Reported) Current Medications: Current Medications Sig/Gordon Start time Last Medication Dose Route Stop Time Status Admin Albuterol Sulfate 3 ML Q4-PRN PRN 10/25 1900 AC INH Alteplase, 2 MG ONE ONE 10/30 0900 DC 10/30 Recombinant IV 10/30 0901 1249 Ceftriaxone Sodium 1,000 MG 1400 10/28 1400 AC 10/30 IV 1516 Ferrous Sulfate 325 MG DAILY 10/26 1000 AC 10/30 PO 0945 Patient Medication 1 ED .STK-MED ONE 10/30 1400 MS Teaching ED 10/30 1401 Past History Medical History Blood Transfusion Hx: No Neurological: NONE EENT: glaucoma Cardiovascular: NONE Respiratory: NONE, pneumonia Gastrointestinal: NONE Hepatic: NONE Renal: NONE Musculoskeletal: NONE Psychiatric: NONE Endocrine: NONE Blood Disorders: anemia Cancer(s): leukemia RETURN CLERK/Reproductive: NONE Surgical History Pertinent Surgical History: ANKLE SX Family History Relations & Conditions If Any: Relation not specified for: *No pertinent family history Psychosocial History Where Do You Live? Home Who Do You Live With? spouse, grandchildren Primary Language: Cambodian Smoking Status: Former Smoker ETOH Use: occasional use Illicit Drug Use: denies illicit drug use Functional Ability ADLs Independent: dressing, eating, toileting, bathing. Ambulation: independent Employment History Employment: Unemployed Review of Systems Review of Systems: Review of system is notable for his cough and some degree of left-sided pleuritic chest pain. He is had no significant current dyspnea. His lethargy is improved since his admission. The rest of his 12 point review of system is unremarkable. Exam & Diagnostic Data Vital Signs and I&O Vital Signs Date Time Temp Pulse Resp B/P Pulse O2 O2 Flow FiO2 Ox Delivery Rate 10/30 1618 99.3 84 20 108/50 96 Nasal 3.5L Cannula 10/30 1608 Nasal 4.0L Cannula 10/30 0844 94 Nasal 3.5L Cannula 10/30 0822 98.2 82 20 122/60 96 Nasal 3.5L Cannula 10/30 0800 94 Nasal 2.0L Cannula 10/30 0033 100.0 86 18 124/42 95 Room Air 10/30 0000 Nasal 2.0L Cannula 10/29 2152 91 Room Air Room Air 10/29 2147 87 18 108/40 Intake & Output 10/30 1600 10/30 0800 10/30 0000 10/29 1600 10/29 0000 Intake Total 480 420 50 150 700 Output Total 20 34 150 140 60 Balance 460 -34 270 50 10 640 Intake, IV 20 150 300 Intake, Oral 480 400 50 0 400 Number 1 Bowel Movements Output, Chest 20 34 150 40 Tube Drainage Output, Other 60 Output, Urine 100 Physical Exam: PATIENT: NICOLE SPEARS PRESENT AGE: 81 PATIENT ACCOUNT NO: [id number] : 36 LOCATION: 2NA ORDERING PHYSICIAN: SLOAN ROSENBERG MD SERVICE DATE: 10/27/16- EXAM TYPE: CAT - CT CHEST WO IV CONTRAST EXAMINATION: CT CHEST WITHOUT CONTRAST CLINICAL INFORMATION: Fever. Weakness. Worsening consolidation. COMPARISON: 07/18/[address] and priors; 10/26/2016 plain film and priors. TECHNIQUE: Multidetector volumetric CT imaging of the chest was done. Axial MIP volume rendering provided. Sagittal and coronal reformatted images were obtained. Left arm at side causes beam hardening artifact. Lack of iodinated contrast media hinders evaluation of chronic progressive pleural-parenchymal disease. DLP: 228.25 mGy-cm. FINDINGS: MANAGER DELIVERY: A left basal effusion and consolidation have progressed since 07/18/2016. New right basal airspace opacity and effusion. LUNGS: There is extensive new consolidation in the central right lower lobe. The right lower lobe airways are patent. There is a marked progression of left lower lobe consolidation and left upper lobe consolidation including the lingula. Small focus of patchy/nodular airspace disease is noted in the right upper lobe (series 3 images 18, 19/76). Overall active airspace filling disease is favored over compressive or rounded atelectasis. The appearance is nonspecific and considerations range from aspiration, to pneumonia, to noninfectious organizing pneumonia or neoplastic disease. MEDIASTINUM: Mediastinal adenopathy continues to progress. A large paraesophageal node or mass at the level of the mitzy is less well seen on noncontrast exam but has also progressed. There is mild atherosclerotic disease and coronary disease. PLEURA: The left pleural effusion shows a thickened pleura which was previously enhancing consistent with an exudate. This has increased in volume. Infection is unlikely given the chronicity of this finding. Considerations include a malignant effusion, asbestos related pleural disease or inflammatory disease among other considerations. The right pleural effusion appears freely layering without obvious pleural thickening. No large pericardial effusion. AXILLA: No axillary adenopathy. The patient appears cachectic. A left internal mammary lymph node is enlarged (series 2 image 31/76). No obvious breast mass. UPPER ABDOMEN: There is some celiac and mesenteric adenopathy suggested. The spleen is within normal limits in size. OSSEOUS STRUCTURES: No acute osseous finding. IMPRESSION: 1. An exudative loculated left pleural effusion continues to increase in volume. 2. Progressive mediastinal and now internal mammary lymphadenopathy. 3. Progressive consolidation in the left lung and now in the right lower lobe. Active airspace disease is favored. 4. New layering right effusion. 5. Progressive adenopathy in the upper abdomen. 6. A left thoracentesis can be considered for diagnostic purposes. DICTATED BY: LUIS MIGUEL POSEY MD DATE/TIME DICTATED:10/27/161729 HARD CANDY SPINNER:VIJAYA DATE/TIME TRANSCRIBED:10/27/161729 CONFIDENTIAL, DO NOT COPY WITHOUT APPROPRIATE AUTHORIZATION. <Electronically signed in Other Vendor System> SIGNED BY: ULIS MIGUEL POSEY MD 10/27/16 4971 Last 24 Hours of Labs: Laboratory Tests 10/30 1345 Chemistry Sodium (137 - 145 mmol/L) 130 L Potassium (3.5 - 5.1 mmol/L) 4.0 Chloride (98 - 107 mmol/L) 93 L Carbon Dioxide (22 - 30 mmol/L) 29 Anion Gap (5 - 16) 8 BUN (9 - 20 mg/dL) 12 Creatinine (0.7 - 1.2 mg/dL) 0.7 Estimated GFR (>60 ml/min) > 60 BUN/Creatinine Ratio (7 - 25 %) 17.1 Hematology CBC w Diff NO MAN DIFF REQ WBC (4.8 - 10.8 /CUMM) 4.9 RBC (4.70 - 6.10 /CUMM) 3.16 L Hgb (14.0 - 18.0 G/DL) 9.9 L Hct (42 - 52 %) 29.7 L MCV (80.0 - 94.0 FL) 94.0 MCH (27.0 - 31.0 PG) 31.5 H RDW (11.5 - 14.5 %) 15.2 H Plt Count (130 - 400 /CUMM) 158 MPV (7.4 - 10.4 FL) 7.6 Gran % (42.2 - 75.2 %) 62.1 Lymphocytes % (20.5 - 51.1 %) 24.5 Monocytes % (1.7 - 9.3 %) 12.5 H Eosinophils % (0 - 5 %) 0.4 Basophils % (0.0 - 2.0 %) 0.5 Absolute Granulocytes (1.4 - 6.5 /CUMM) 3.0 Absolute Lymphocytes (1.2 - 3.4 /CUMM) 1.2 Absolute Monocytes (0.10 - 0.60 /CUMM) 0.6 Absolute Eosinophils (0.0 - 0.7 /CUMM) 0 Absolute Basophils (0.0 - 0.2 /CUMM) 0 PUBS MCHC (33.0 - 37.0 G/DL) 33.5 Imaging Results: On physical examination she appears well. Her skin is warm and well perfused no suspicious lesions noted. The sclerae are anicteric and mucous membranes are moist. There is no cervical or subclavicular lymphadenopathy. Her breath sounds are diminished on the right side. There is a pleural catheter in place and is draining serosanguineous fluid for a total of 1200 mL. Her cardiac exam shows a regular rhythm and rate no murmurs or sounds. The abdomen is soft and nontender with no masses. Periphery shows no cyanosis clubbing or edema. Her neurologic exam is grossly normal motor and sensory function. Assessment/Plan Assessment/Plan Mr. Spears has, K left pleural effusion with chemistries consistent with empyema. There is also concern that this may be account services representative of his neoplasm. For now we will proceed with lytic treatment to try to completely drain that left side. We will proceed with 3 days of lytics and lesser complications. He can then be reevaluated with CT scan of the chest and hopefully we can avoid any further intervention. His first lytic treatment will be done today. Consult Acknowledgment - Thank you for your consult request.
[2016-10-30 23:34] VITALS: BP 108/50
--- NOTE | 2016-10-31 07:03 | Cons- Hematology ---
General Information and HPI Consulting Request Date of Consult: 10/31/16 Requested By: CARLOS PRESTON,DARCI Turcios History of Present Illness: 81-year-old man with known non-Hodgkin's lymphoma admitted for my office last week and found to have an empyema. Patient currently is less short of breath. Patient denies chest pain or hemoptysis. The patient currently is not on active systemic chemotherapy Allergies/Medications Allergies: Uncoded Allergies: SEASONAL (UNKNOWN 06/09/15) Home Med List: Ferrous Sulfate 220 MG/5 ML ROSEMARY 5 ML PO DAILY ANEMIA (Reported) Current Medications: Current Medications Sig/Gordon Start time Last Medication Dose Route Stop Time Status Admin Albuterol Sulfate 3 ML Q4-PRN PRN 10/25 1900 AC INH Alteplase, 2 MG ONE ONE 10/30 0900 DC 10/30 Recombinant IV 10/30 0901 1249 Ceftriaxone Sodium 1,000 MG 1400 10/28 1400 AC 10/30 IV 1516 Ferrous Sulfate 325 MG DAILY 10/26 1000 AC 10/30 PO 0945 Patient Medication 1 ED .STK-MED ONE 10/30 1400 MN Teaching ED 10/30 1401 Review of Systems Review of Systems: Patient denies headaches or dizziness. Patient denies significant nausea vomiting or other GI symptomatology. Patient denies dysuria hematuria. Patient denies bone aches or focal neurologic deficit Past History Travel History Traveled to [place] past 21 day No Medical History Blood Transfusion Hx: No Neurological: NONE EENT: glaucoma Cardiovascular: NONE Respiratory: NONE, pneumonia Gastrointestinal: NONE Hepatic: NONE Renal: NONE Musculoskeletal: NONE Psychiatric: NONE Endocrine: NONE Blood Disorders: anemia Cancer(s): leukemia CLEANER/Reproductive: NONE Surgical History Surgical History: ANKLE SX Family History Relations & Conditions If Any: Relation not specified for: *No pertinent family history Psychosocial History Where Do You Live? Home Who Do You Live With? spouse, grandchildren Primary Language: Burkinan Smoking Status: Former Smoker ETOH Use: occasional use Illicit Drug Use: denies illicit drug use Functional Ability ADLs Independent: dressing, eating, toileting, bathing. Ambulation: independent Employment History Employment: Unemployed Exam & Diagnostic Data Vital Signs and I&O Vital Signs Date Time Temp Pulse Resp B/P Pulse O2 O2 Flow FiO2 Ox Delivery Rate 10/31 0000 Nasal 2.0L Cannula 10/30 2334 97.9 77 20 108/50 96 Nasal Cannula 10/30 1618 99.3 84 20 108/50 96 Nasal 3.5L Cannula 10/30 1608 Nasal 4.0L Cannula 10/30 1600 Nasal 2.0L Cannula 10/30 0844 94 Nasal 3.5L Cannula 10/30 0822 98.2 82 20 122/60 96 Nasal 3.5L Cannula 10/30 0800 94 Nasal 2.0L Cannula Intake & Output 10/31 0800 10/31 0000 10/30 1600 Intake Total 240 480 Output Total 110 20 Balance 130 460 Intake, Oral 240 480 Number 1 Bowel Movements Output, Chest 60 20 Tube Drainage Output, Urine 50 Gen.: in NAD ENT: Sclera anicteric Chest: Normal respiratory effort, decreased breath sounds, chest tube in place Cor: RRR, no extra sounds Abdomen: Soft, bowel sounds present, no tenderness, no rebound Extremities: Without clubbing, cyanosis, or asymmetric edema Neurology: Alert and oriented 3, no gross deficit Last 48 Hours of Lab Results: Laboratory Tests 10/30 1345 Chemistry Sodium (137 - 145 mmol/L) 130 L Potassium (3.5 - 5.1 mmol/L) 4.0 Chloride (98 - 107 mmol/L) 93 L Carbon Dioxide (22 - 30 mmol/L) 29 Anion Gap (5 - 16) 8 BUN (9 - 20 mg/dL) 12 Creatinine (0.7 - 1.2 mg/dL) 0.7 Estimated GFR (>60 ml/min) > 60 BUN/Creatinine Ratio (7 - 25 %) 17.1 Hematology CBC w Diff NO MAN DIFF REQ WBC (4.8 - 10.8 /CUMM) 4.9 RBC (4.70 - 6.10 /CUMM) 3.16 L Hgb (14.0 - 18.0 G/DL) 9.9 L Hct (42 - 52 %) 29.7 L MCV (80.0 - 94.0 FL) 94.0 MCH (27.0 - 31.0 PG) 31.5 H RDW (11.5 - 14.5 %) 15.2 H Plt Count (130 - 400 /CUMM) 158 MPV (7.4 - 10.4 FL) 7.6 Gran % (42.2 - 75.2 %) 62.1 Lymphocytes % (20.5 - 51.1 %) 24.5 Monocytes % (1.7 - 9.3 %) 12.5 H Eosinophils % (0 - 5 %) 0.4 Basophils % (0.0 - 2.0 %) 0.5 Absolute Granulocytes (1.4 - 6.5 /CUMM) 3.0 Absolute Lymphocytes (1.2 - 3.4 /CUMM) 1.2 Absolute Monocytes (0.10 - 0.60 /CUMM) 0.6 Absolute Eosinophils (0.0 - 0.7 /CUMM) 0 Absolute Basophils (0.0 - 0.2 /CUMM) 0 PUBS MCHC (33.0 - 37.0 G/DL) 33.5 Imaging/Other Studies: [id number] lymphadenopathy, loculated pleural effusion Assessment/Plan Assessment: 1. Empyema-all data support empyema without significant involvement of his lymphoma 2. Non-Hodgkin's lymphoma-current CAT scan suggests stability without significant recent progression, no plans for chemotherapy in the near future Routine follow-up in my office after discharge Recommendations: .. Consult Acknowledgment - Thank you for your consult request.
--- NOTE | 2016-10-31 07:18 | PN- Housestaff ---
BUNNY THOMAS 10/31/16 0717: Subjective Follow-up For: 1.Community acquired pneumonia. 2.History of follicular lymphoma. 3.Bilateral hemmorhagic , exudative pleural effusion, loculated left-sided effusion, Empyema versus -s/p thoracocentesis 4.Deconditioning Complaints: doesnot want to move outside the bed Tele-Events Since Last Visit: NSr,80's to 90,s Subjective: I have seen and examined the patient today morning. He seems to be doing okay and is very cranky. He does not want to get out of bed and work with physical therapy. His chest tube drain had extremely dark-colored hemorrhagic fluid today morning and it was about 100 mL since last night. He Continues to saturate 96% on 3.5 L of nasal cannula. He remained afebrile. Review of Systems Constitutional: Reports: see HPI. EENTM: Denies: blurred vision, double vision, visual changes, eye pain. Cardiovascular: Denies: chest pain, edema, orthopena, palpitations. Respiratory: Denies: cough, hemoptysis, orthopnea, short of breath. Gastrointestinal: Denies: abdominal pain, bloating, constipation, diarrhea, distention. Genitourinary: Reports: no symptoms. Musculoskeletal: Reports: no symptoms. Skin: Reports: no symptoms. Neurological/Psychological: Reports: no symptoms. Hematologic/Endocrine: Reports: no symptoms. Objective Last 24 Hrs of Vital Signs/I&O Vital Signs Date Time Temp Pulse Resp B/P Pulse O2 O2 Flow FiO2 Ox Delivery Rate 10/31 0000 Nasal 2.0L Cannula 10/30 2334 97.9 77 20 108/50 96 Nasal Cannula 10/30 1618 99.3 84 20 108/50 96 Nasal 3.5L Cannula 10/30 1608 Nasal 4.0L Cannula 10/30 1600 Nasal 2.0L Cannula 10/30 0844 94 Nasal 3.5L Cannula 10/30 0822 98.2 82 20 122/60 96 Nasal 3.5L Cannula 10/30 0800 94 Nasal 2.0L Cannula Intake & Output 10/31 0800 10/31 0000 10/30 1600 Intake Total 100 240 480 Output Total 800 110 20 Balance -700 130 460 Intake, Oral 100 240 480 Number 1 Bowel Movements Output, Chest 60 20 Tube Drainage Output, Urine 800 50 Physical Exam General Appearance: Alert, Oriented X3, Cooperative, No Acute Distress Skin: No Rashes, No Breakdown, chest tube - left lateral side HEENT: Atraumatic, PERRLA, EOMI Neck: Supple, No JVD Lymphatic: no lad Cardiovascular: Regular Rate, Normal S1, Normal S2, No Murmurs Lungs: Clear to Auscultation, Normal Air Movement Abdomen: Normal Bowel Sounds, Soft, No Tenderness Neurological: Normal Speech, Strength at 5/5 X4 Ext, Normal Tone, Sensation Intact Extremities: No Clubbing, No Cyanosis, No Edema, Normal Pulses Vascular: Normal Pulses Current Medications: Current Medications Sig/Gordon Start time Last Medication Dose Route Stop Time Status Admin Albuterol Sulfate 3 ML Q4-PRN PRN 10/25 1900 AC INH Alteplase, 2 MG ONE ONE 10/30 0900 DC 10/30 Recombinant IV 10/30 0901 1249 Ceftriaxone Sodium 1,000 MG 1400 10/28 1400 AC 10/30 IV 1516 Ferrous Sulfate 325 MG DAILY 10/26 1000 AC 10/30 PO 0945 Patient Medication 1 ED .STK-MED ONE 10/30 1400 [place] Teaching ED 10/30 1401 Last 24 Hrs of Lab/Mando Results Last 24 Hrs of Labs/Mics: Laboratory Tests 10/31/16 0625: Sodium Pending, Potassium Pending, Chloride Pending, Carbon Dioxide Pending, Anion Gap Pending, BUN Pending, Creatinine Pending, BUN/Creatinine Ratio Pending 10/30/16 1345: Anion Gap 8, Estimated GFR > 60, BUN/Creatinine Ratio 17.1, CBC w Diff NO MAN DIFF REQ, RBC 3.16 L, MCV 94.0, MCH 31.5 H, RDW 15.2 H, MPV 7.6, Gran % 62.1, Lymphocytes % 24.5, Monocytes % 12.5 H, Eosinophils % 0.4, Basophils % 0.5, Absolute Granulocytes 3.0, Absolute Lymphocytes 1.2, Absolute Monocytes 0.6, Absolute Eosinophils 0, Absolute Basophils 0, PUBS MCHC 33.5 Lines/Diet/Fluids Restraints: none Assessment/Plan Assessment: This is of 81-year-old male with past medical history of follicular lymphoma ( diag : 2 years ago0 status post chemotherapy (follows up with Dr. Chen), last chemotherapy 3 months ago, came into the emergency department 10/25/2016 after being sent from Dr. Chen's office secondary to sustaining a fall injury. On arrival at the emergency department he complained of weakness and shortness of breath which was worse from his baseline. xray of the chest was done which showed consolidation, labs showed increased white count with lactic acidosis. Therefore he was admitted to the general medicine floor for treatment of severe sepsis secondary to community-acquired pneumonia. He was started on IV ceftriaxone and azithromycin, and was hydrated with IV fluids. Patient had a slightly low blood pressure on day 2 of admission, on review of the records it was noted that patient has a tendency to stay low, and has a baseline low pressure. On 10/29/2016 patient was found to be tachycardic at the rate of 170, EKG showed new T-wave inversions in V1 and V2 V3 and P-wave inversions on 82, troponin was found to be negative, CT was negative for PE, however the patient was transferred to telemetry as her heart rate was as high as 170, he spiked temperature and his blood pressure was low at 80/48. patient continues to be on telemetry for close monitoring and cardiology was consulted.He was found to have bilateral pleural effusion in is now status post thoracocentesis iwht lytic therapy. Problem list along with assessment and plan #1 Community-acquired pneumonia. * Urine cultures were positive for strep pneumonia antigen. * Continue IV ceftriaxone - day 4 * No growth on blood cultures so far, ct ot follow. * Pulmonology consult appreciated. * Continue to monitor oxygen and taper saturations keeping it above 92% of the time. #2 Bilateral pleural effusion, left-sided loculated infusion status post thoracocentesis and lytic therapy + chest tube placement, empyema. * Patient had a thoracocentesis 10/28/16 and revision 10/29/16 and pleural fluid was sent for analysis and cytology, which was negative for malignancy. * Pleural fluid was noted to be exudative in nature consistent with emypema and infectious etiology,he recieved lytic therapy. * Continue IV antibiotics with ceftriaxone - Day 4 * Patient recieved lytic therapy yday, today PF was very haemorrhagic, therefore lytic therapy originally planned for three days, will hold off for today. * oncology input appreciated. #3 History of Follicular Lymphoma. * Diagnosis 2 years ago, status post 6 cycles of chemotherapy last one being 6 months ago. * Oncology input appreciated. #4 History of Anemia. * Continue iron supplementation #5 Protein Calorie Malnutrition. * Patient's body mass index is 16.9 * Nutrition consult appreciated. * Continue ensure enlive BID, however PO intake has been varying form 10% to 100 % FC DVt Px : ALPS Problem List: 1. Pleural effusion 2. Follicular lymphoma 3. Hypotension 4. Empyema 5. CAP (community acquired pneumonia) Pain Ratin Pain Location: na Pain Goal: Remain pain free Pain Plan: tylenol Tomorrow's Labs & Rationales: BEP DVT/Prophylaxis: pharmacological Discharge Plan Stable for Discharge? No Anticipated Discharge (Day): two days If Discharged Today/In 24 Hrs: CMR done DARCI GONZALEZ MD 10/31/16 0955: Attending MD Review Statement Attending Statement Attending MD Statement: examined this patient, discuss w/resident/PA/THERMAL MOLDER, agreed w/resident/PA/THERMAL MOLDER, reviewed EMR data (avail), discussed with nursing, discussed with case mgmt Attending Assessment/Plan: Patient is weak and tired and fed up. He is an 81-year-old with a history of non-Hodgkin's lymphoma not on active chemotherapy who is here with a pneumococcal pneumonia and a pneumococcal empyema. He is getting IV antibiotics and chest tube drainage. He got lytic therapy yesterday and will follow-up with pulmonary. He had a transient episode of A. fib but spontaneously converted. Overall he is debilitated weak and has a malignancy and is a high risk of anticoagulation but will follow-up.
[2016-10-31 08:04] VITALS: BP 102/60
--- NOTE | 2016-10-31 09:53 | PN- Pulmonary ---
Subjective HPI/Critical Care Issues: Patient seen and examined. Status post lytic therapy yesterday there is a significant amount of hemorrhagic pleural fluid and we will hold her dose today. Otherwise he is feeling somewhat better but appears to be significantly deconditioned. Afebrile and without leukocytosis. Objective Current Medications: Current Medications Sig/Gordon Start time Last Medication Dose Route Stop Time Status Admin Albuterol Sulfate 3 ML Q4-PRN PRN 10/25 1900 AC INH Alteplase, 10 MG ONE TIME ONE 10/31 07 CAN Recombinant IPL 10/31 0746 Ceftriaxone Sodium 1,000 MG 1400 10/28 1400 AC 10/30 IV 1516 Ferrous Sulfate 325 MG DAILY 10/26 1000 AC 10/31 PO 0930 Patient Medication 1 ED .STK-MED ONE 10/30 1400 [place] Teaching ED 10/30 1401 Vital Signs & I&O Last 24 Hrs of Vitals and I&O: Vital Signs Date Time Temp Pulse Resp B/P Pulse O2 O2 Flow FiO2 Ox Delivery Rate 10/31 1230 96 Nasal 3.5L Cannula 10/31 0804 98.2 68 20 102/60 97 Nasal 3.5L Cannula 10/31 0800 Nasal 3.5L Cannula 10/31 0000 Nasal 2.0L Cannula 10/30 2334 97.9 77 20 108/50 96 Nasal Cannula 10/30 1618 99.3 84 20 108/50 96 Nasal 3.5L Cannula 10/30 1608 Nasal 4.0L Cannula 10/30 1600 Nasal 2.0L Cannula Intake & Output 10/31 1600 10/31 0800 10/31 0000 Intake Total 100 240 Output Total 800 110 Balance -700 130 Intake, Oral 100 240 Number 1 Bowel Movements Output, Chest 60 Tube Drainage Output, Urine 800 50 Exam Other Physical Findings: General - Alert, awake and oriented, cachectic HEENT - normocephalic, atraumatic Cardiovascular - S1, S2 Lungs - diminished breath sounds bilaterally, left chest tube Abdomen - soft, bowel sounds positive, no tenderness Extremities - without edema or cyanosis Results Last 24 Hrs of Lab Results: Laboratory Tests 10/31/16 0625: Anion Gap 10, Estimated GFR > 60, BUN/Creatinine Ratio 20.0 10/30/16 1345: Anion Gap 8, Estimated GFR > 60, BUN/Creatinine Ratio 17.1, CBC w Diff NO MAN DIFF REQ, RBC 3.16 L, MCV 94.0, MCH 31.5 H, RDW 15.2 H, MPV 7.6, Gran % 62.1, Lymphocytes % 24.5, Monocytes % 12.5 H, Eosinophils % 0.4, Basophils % 0.5, Absolute Granulocytes 3.0, Absolute Lymphocytes 1.2, Absolute Monocytes 0.6, Absolute Eosinophils 0, Absolute Basophils 0, PUBS MCHC 33.5 Impression/Plan Impression/Plan Impression/Plan: Impression 81 year old man * Loculated left sided pleural effusion, right sided effusion * airpsace disease consistent with pneumonia secondary to likely streptococcal pneumonia given positive antigen * exudative effusion consistent with empyema vs malignant fluid * Follicular lymphoma * Fatigue, deconditioning Plan - Hold lytic therapy for today and monitor drainage since there is significant hemorrhagic fluid present in the pleura Vac - cont ceftriaxone - + strep pneumo - spo2 goal >88% DVT prophylaxis at all times
--- NOTE | 2016-10-31 10:32 | NUR ---
PHYSICAL THERAPY: Attempted to see patient this A.M. Patient recieved in bed, adamently refusing services at this time. Patient was educated on the benefits of PT, reminded that he has not been out of bed in a few days, and discussed the effects of prolonged bed rest on mobility. Patient continued to refuse ambulation, bed<>chair transfer, and bed-level therex activities repeatedly. Patient becoming irritable and agitated; P.T. will f/u as appropriate tomorrow.
[2016-10-31 16:17] VITALS: BP 100/40
[2016-11-01 01:18] VITALS: BP 87/40
--- NOTE | 2016-11-01 07:46 | PN- Housestaff ---
BUNNY THOMAS 11/01/16 0743: Subjective Follow-up For: 1.Community acquired pneumonia. 2.History of follicular lymphoma. 3.Bilateral hemmorhagic , exudative pleural effusion, loculated left-sided effusion, Empyema versus -s/p thoracocentesis and lytic therapy 4.Deconditioning Complaints: no complaints Tele-Events Since Last Visit: off tele now. Subjective: Seen and examined the patient today morning, he was lying on the bed, still crampy and cranky, complaining about being in hospital, did not give any complaints with regards to pain, he continues to have dark pleural fluid drainage, he received second round of lytic therapy today Review of Systems Constitutional: Reports: see HPI. EENTM: Reports: see HPI. Objective Last 24 Hrs of Vital Signs/I&O Vital Signs Date Time Temp Pulse Resp B/P Pulse O2 O2 Flow FiO2 Ox Delivery Rate 11/01 0118 98.2 74 18 87/40 96 11/01 0000 Nasal 3.0L Cannula 10/31 1617 97.2 80 15 100/40 97 Nasal 3.0L Cannula 10/31 1230 96 Nasal 3.5L Cannula 10/31 0804 98.2 68 20 102/60 97 Nasal 3.5L Cannula 10/31 0800 Nasal 3.5L Cannula Intake & Output 11/01 0800 11/01 0000 10/31 1600 Intake Total 100 100 240 Output Total 125 Balance 100 100 115 Intake, Oral 100 100 240 Output, Chest 125 Tube Drainage Physical Exam General Appearance: Alert, Oriented X3, Cooperative, Mild Distress Skin: No Rashes, No Breakdown, chest tube site clean, no surrouding erythema HEENT: Atraumatic, PERRLA, EOMI Neck: Supple, No JVD, No thryomegaly Lymphatic: no lad Cardiovascular: Regular Rate, Normal S1, Normal S2, No Murmurs Lungs: Clear to Auscultation, Normal Air Movement Abdomen: Normal Bowel Sounds, Soft, No Tenderness Neurological: Strength at 5/5 X4 Ext, Normal Tone, Sensation Intact Extremities: No Clubbing, No Cyanosis, No Edema Vascular: Normal Pulses Current Medications: Current Medications Sig/Gordon Start time Last Medication Dose Route Stop Time Status Admin Albuterol Sulfate 3 ML Q4-PRN PRN 10/25 1900 AC INH Alteplase, 10 MG ONE TIME ONE 10/31 0745 CAN Recombinant IPL 10/31 0746 Ceftriaxone Sodium 1,000 MG 1400 10/28 1400 AC 10/31 IV 1400 Ferrous Sulfate 325 MG DAILY 10/26 1000 AC 10/31 PO 0930 Last 24 Hrs of Lab/Mando Results Last 24 Hrs of Labs/Mics: Laboratory Tests 11/01/16 0640: Sodium Pending, Potassium Pending, Chloride Pending, Carbon Dioxide Pending, Anion Gap Pending, BUN Pending, Creatinine Pending, BUN/Creatinine Ratio Pending , CBC w Diff Pending, WBC Pending, RBC Pending, Hgb Pending, Hct Pending, MCV Pending, MCH Pending, RDW Pending, Plt Count Pending, MPV Pending, PUBS MCHC Pending Lines/Diet/Fluids Restraints: none Assessment/Plan Assessment: This is of 81-year-old male with past medical history of follicular lymphoma ( diag : 2 years ago0 status post chemotherapy (follows up with Dr. Chen), last chemotherapy 3 months ago, came into the emergency department 10/25/2016 after being sent from Dr. Chen's office secondary to sustaining a fall injury was found ot have consolidation on cxray - cap,started on IV ceftriaxone and azithromycin, and was hydrated with IV fluids. On 10/29/2016 patient was found to be tachycardic at the rate of 170, EKG showed new T-wave inversions in V1 and V2 V3 and P-wave inversions on 82, troponin was found to be negative, CT was negative for PE, however the patient was transferred to telemetry as her heart rate was as high as 170, he spiked temperature and his blood pressure was low at 80/48. patient continues to be on telemetry for close monitoring and cardiology was consulted.He was found to have bilateral pleural effusion in is now status post thoracocentesis wiht lytic therapy X2 Problem list along with assessment and plan #1 Community-acquired pneumonia. * Urine cultures were positive for strep pneumonia antigen. * Continue IV ceftriaxone - day 5 * No growth on blood cultures so far, ct ot follow. * Continue to monitor oxygen and taper saturations keeping it above 92% of the time. #2 Bilateral pleural effusion, left-sided loculated infusion status post thoracocentesis and lytic therapy + chest tube placement, empyema. * Patient had a thoracocentesis 10/28/16 and revision 10/29/16 and pleural fluid was sent for analysis and cytology, which was negative for malignancy. * Pleural fluid was noted to be exudative in nature consistent with emypema and infectious etiology,he recieved lytic therapy 10/30/16 and repeay today. * Continue IV antibiotics with ceftriaxone - Day 5 * oncology input appreciated. #3 History of Follicular Lymphoma. * Diagnosis 2 years ago, status post 6 cycles of chemotherapy last one being 6 months ago. * Oncology input appreciated. #4 History of Anemia. * Continue iron supplementation #5 Moderate Protein Calorie Malnutrition. * Patient's body mass index is 16.9 * Nutrition consult appreciated. * Continue ensure enlive BID, Po intake improving- 75% breakfast , 50% lunch. # DC telemetry * As per Dr pat,patient can be off telenetry. * patient Gen med hold now, * prior rhythm was nsr, rate in 70 to 80's FC DVt Px : ALPS Problem List: 1. Empyema 2. Hypotension Pain Ratin Pain Location: na Pain Goal: Remain pain free Pain Plan: tylenol Tomorrow's Labs & Rationales: bep Discharge Plan Stable for Discharge? No Anticipated Discharge (Day): tomorrow CARLOS PRESTON,DARCI 11/01/16 1511: Attending MD Review Statement Attending Statement Attending MD Statement: examined this patient, discuss w/resident/PA/SNUFF MAKER, agreed w/resident/PA/SNUFF MAKER, reviewed EMR data (avail), discussed with nursing, discussed with case mgmt Attending Assessment/Plan: Patient is refusing to get up with physical therapy. He is very deconditioned, cachectic and upset overall. He is a pneumococcal empyema on IV ceftriaxone who has a chest tube placed. I confirmed with Dr. Ramirez and he will have lytics again today and will follow-up. I confirmed with Dr. Ritchie and we don't need to monitor so we'll discontinue the monitor. cachectic and upset overall. He is a pneumococcal empyema on IV ceftriaxone who has a chest tube placed. I confirmed with Dr. Ramirez and he will have lytics again today and will follow-up. I confirmed with Dr. Ritchie and we don't need to monitor so we'll discontinue the monitor.
[2016-11-01 07:59] LABS: ABSOLUTE BASOPHIL COUNT 0 /CUMM (0.0-0.2); ABSOLUTE EOSINOPHIL COUNT 0 /CUMM (0.0-0.7); ABSOLUTE GRANULOCYTE CT 2.1 /CUMM (1.4-6.5); ABSOLUTE LYMPH COUNT 1.6 /CUMM (1.2-3.4); ABSOLUTE MONOCYTE COUNT 0.6 /CUMM (0.10-0.60); BASOPHIL % 0.4 % (0.0-2.0); EOSINOPHIL % 0.7 % (0-5); GRANULOCYTE % 48.6 % (42.2-75.2); HEMATOCRIT 27.8 % (42-52); MEAN CORPUSCULAR HGB 31.1 PG (27.0-31.0); MEAN CORPUSCULAR HGB CONC 33.4 G/DL (33.0-37.0); MEAN CORPUSCULAR VOLUME 93.2 FL (80.0-94.0); MEAN PLATELET VOLUME 7.8 FL (7.4-10.4); PLATELET COUNT 166 /CUMM (130-400); RBC DISTRIBUTION WIDTH 15.6 % (11.5-14.5); RED BLOOD CELL CT 2.98 /CUMM (4.70-6.10); WHITE BLOOD CELL COUNT 4.2 /CUMM (4.8-10.8)
[2016-11-01 08:00] VITALS: BP 110/50
--- NOTE | 2016-11-01 10:57 | PN- Pulmonary ---
Subjective HPI/Critical Care Issues: Minimal drainage, but bloody, no cytology evidence of malignancy. Feeling somewhat better getting echo today Objective Current Medications: Current Medications Sig/Gordon Start time Last Medication Dose Route Stop Time Status Admin Albuterol Sulfate 3 ML Q4-PRN PRN 10/25 1900 AC INH Ceftriaxone Sodium 1,000 MG 1400 10/28 1400 AC 10/31 IV 1400 Ferrous Sulfate 325 MG DAILY 10/26 1000 AC 11/01 PO 0908 Vital Signs & I&O Last 24 Hrs of Vitals and I&O: Vital Signs Date Time Temp Pulse Resp B/P Pulse O2 O2 Flow FiO2 Ox Delivery Rate 11/01 799 98.1 76 20 110/50 95 Nasal 4.0L Cannula 11/01 0118 98.2 74 18 87/40 96 11/01 0000 Nasal 3.0L Cannula 10/31 1617 97.2 80 15 100/40 97 Nasal 3.0L Cannula 10/31 1230 96 Nasal 3.5L Cannula Intake & Output 11/01 1600 11/01 0800 11/01 0000 Intake Total 100 100 Output Total Balance 100 100 Intake, Oral 100 100 Exam Other Physical Findings: General - Alert, awake and oriented, cachectic HEENT - normocephalic, atraumatic Cardiovascular - S1, S2 Lungs - diminished breath sounds bilaterally, left chest tube Abdomen - soft, bowel sounds positive, no tenderness Extremities - without edema or cyanosis Results Last 24 Hrs of Lab Results: Laboratory Tests 11/01/16 0640: Anion Gap 10, Estimated GFR > 60, BUN/Creatinine Ratio 21.7, CBC w Diff NO MAN DIFF REQ, RBC 2.98 L, MCV 93.2, MCH 31.1 H, RDW 15.6 H, MPV 7.8, Gran % 48.6, Lymphocytes % 37.3, Monocytes % 13.0 H, Eosinophils % 0.7, Basophils % 0.4, Absolute Granulocytes 2.1, Absolute Lymphocytes 1.6, Absolute Monocytes 0.6, Absolute Eosinophils 0, Absolute Basophils 0, PUBS MCHC 33.4 Impression/Plan Impression/Plan Impression/Plan: Impression 81 year old man * Loculated left sided pleural effusion, right sided effusion * airpsace disease consistent with pneumonia secondary to likely streptococcal pneumonia given positive antigen * exudative effusion consistent with empyema vs malignant fluid * Follicular lymphoma * Fatigue, deconditioning Plan - lytic therapy today and monitor drainage in the pleura Vac - cont ceftriaxone - + strep pneumo - spo2 goal >88% DVT prophylaxis at all times
--- NOTE | 2016-11-01 12:55 | ECHOCARDIOGRAM REPORT ---
NICOLE SPEARS Age: 81 : 1935 Gender: M Exam Date: 11/01/2016 09:56 Exam Location: [facility] Ht (in): 72 Wt (lb): 131 BSA: 1.72 BP: 128 / 59 Ordering Physician: AMADEO RITCHIE MD Referring Physician: AMADEO RITCHIE MD Technologist: Pepe Fajardo [facility] Room Number: [id number] Indications: AFIB/FLUTTER Rhythm: Sinus Technical Quality: Good FINDINGS Left Ventricle Normal left ventricular size, wall thickness and systolic function with no obvious regional wall motion abnormalities. The ejection fraction is visually estimated at >65 %. Abnormal relaxation filling pattern of the left ventricle for age (stage 1 diastolic dysfunction). Right Ventricle The right ventricle is normal in size and function. Right Atrium The right atrium is normal in size. Left Atrium The left atrium is normal in size. The interatrial septum is intact. Mitral Valve Mild thickening/calcification of the mitral valve leaflets. trace mitral regurgitation. Aortic Valve Focal thickening of the aortic valve cusps. No aortic stenosis. Trace aortic regurgitation. Tricuspid Valve The tricuspid valve is normal in structure and function. There is trace tricuspid regurgitation. Pulmonary artery systolic pressure is normal. Pulmonic Valve Structurally normal pulmonic valve. There is trace pulmonic regurgitation. Pericardium Trace pericardial effusion. Left pleural effusion. Great Vessels Normal aortic root dimension. The aortic arch and great vessels are well seen and are normal. CONCLUSIONS Normal left ventricular size, wall thickness and systolic function with no obvious regional wall motion abnormalities. The left atrium is normal in size. Mild thickening/calcification of the mitral valve leaflets. Focal thickening of the aortic valve cusps. No aortic stenosis. Trace aortic regurgitation. Pulmonary artery systolic pressure is normal. Trace pericardial effusion. Left pleural effusion. Amadeo Ritchie M.D. (Electronically Signed) Final Date: 01 November 2016 12:54 MEASUREMENTS (Male / Female) Normal Values 2D ECHO LV Diastolic Diameter PLAX 3.9 cm 4.2 - 5.9 / 3.9 - 5.3 cm LV Systolic Diameter PLAX 2.3 cm 2.1 - 4.0 cm LV Fractional Shortening PLAX 41.0 % 25 - 46 % LV Ejection Fraction 2D Teich 72.5 % IVS Diastolic Thickness 1.0 cm LVPW Diastolic Thickness 1.1 cm LV Relative Wall Thickness 0.5 LVOT Diameter 1.9 cm Aortic Root Diameter 2.8 cm LA Systolic Diameter LX 2.6 cm 3.0 - 4.0 / 2.7 - 3.8 cm LV Diastolic Length 4C 7.6 cm 6.9 - 10.3 cm LV Diastolic Area 4C 28.1 cm LV Diastolic Volume MOD 4C 86.0 cm LV Ejection Fraction MOD 4C 73.3 % LV Stroke Volume MOD 4C 63.0 cm LV Systolic Length 4C 5.3 cm LV Systolic Area 4C 12.1 cm LV Systolic Volume MOD 4C 23.0 cm LV Ejection Fraction MOD 2C 62.6 % LV Diastolic Volume 4C AL 88.8 cm 85 - 139 / 69 - 109 cm LV Systolic Volume 4C AL 23.6 cm LV Ejection Fraction 4C AL 73.5 % LV Stroke Volume 4C AL 65.2 cm LV Ejection Fraction 2C AL 63.4 % LA Volume 33.0 cm 18 - 58 / 22 - 52 cm Ascending Aorta Diameter 2.6 cm DOPPLER AV Peak Velocity 175.0 cm/s AV Peak Gradient 12.3 mmHg AV Mean Velocity 101.0 cm/s AV Mean Gradient 5.0 mmHg AV Velocity Time Integral 28.1 cm LVOT Peak Velocity 116.0 cm/s LVOT Peak Gradient 5.4 mmHg LVOT Mean Velocity 60.2 cm/s LVOT Mean Gradient 2.0 mmHg LVOT Velocity Time Integral 20.9 cm LVOT Stroke Volume 59.3 cm AV Area Cont Eq vti 2.1 cm AV Area Cont Eq pk 1.9 cm MV Peak Velocity 87.5 cm/s MV Peak Gradient 3.1 mmHg MV Mean Velocity 50.8 cm/s MV Mean Gradient 1.0 mmHg MV PHT Velocity 79.4 cm/s MV Deceleration [place] 303.0 cm/s MV Pressure Half Time 78.6 ms MV Area PHT 2.8 cm TR Peak Velocity 227.0 cm/s TR Peak Gradient 20.6 mmHg PV Peak Velocity 148.0 cm/s PV Peak Gradient 8.8 mmHg PV Mean Velocity 90.7 cm/s PV Mean Gradient 4.0 mmHg PV Velocity Time Integral 25.0 cm LV E' Lateral Velocity 6.1 cm/s LV E' Septal Velocity 5.9 cm/s
--- NOTE | 2016-11-01 13:35 | NUR ---
PHYSICAL THERAPY: ATTEMPTED TO SEE PATIENT TODAY. PATIENT REFUSING THEREX IN BED, EDGE OF CHAIR, TRANSFER TO CHAIR, OR AMBULATION TRAINING. PATIENT EDUCATED ON THE BENEFITS OF EXERCISE; CON'T TO REFUSE. INSTRUCTED PATIENT THAT P.T. WILL F/U LATER THIS AFTERNOON WHEREIN PATIENT STATED "THAT'S OK, I'LL JUST SAY NO TO IT ALL AND THROW YOU OUT THEN TOO." SPOKE W/ RN, WHO IS AWARE OF REFUSALS. WILL F/U APPROPRIATE.
[2016-11-01 16:01] VITALS: BP 102/50
[2016-11-01 19:58] VITALS: BP 102/36
[2016-11-01 23:54] VITALS: BP 110/50
[2016-11-02 09:08] VITALS: BP 92/50
--- NOTE | 2016-11-02 09:36 | PN- Housestaff ---
BUNNY THOMAS 11/02/16 0935: Subjective Follow-up For: 1.Community acquired pneumonia. 2.History of follicular lymphoma. 3.Bilateral hemmorhagic , exudative pleural effusion, loculated left-sided effusion, Empyema versus -s/p thoracocentesis and lytic therapy 4.Deconditioning Complaints: no complaints Tele-Events Since Last Visit: Subjective: I have seen and examiend the patient today sussy, he continues to remain weak, he said he is not strong to get out of bed and will get out tmrw, once more stronger, if rehab is indicated he will prefer only tobin and he agrees for rehab Review of Systems Constitutional: Reports: see HPI. EENTM: Denies: blurred vision, double vision, visual changes, eye pain. Cardiovascular: Denies: chest pain, edema, orthopena, palpitations. Respiratory: Reports: cough. Denies: hemoptysis, orthopnea, short of breath. Gastrointestinal: Denies: abdominal pain, bloating, constipation, diarrhea. Genitourinary: Reports: no symptoms. Musculoskeletal: Reports: back pain. Skin: Reports: no symptoms. Neurological/Psychological: Reports: no symptoms. Hematologic/Endocrine: Reports: no symptoms. Immunologic/Allergic: Reports: no symptoms. Objective Last 24 Hrs of Vital Signs/I&O Vital Signs Date Time Temp Pulse Resp B/P Pulse O2 O2 Flow FiO2 Ox Delivery Rate 11/02 0908 97.6 65 18 92/50 96 Nasal 1.0L Cannula 11/02 0000 94 Nasal 1.5L Cannula 11/01 2354 98.4 76 18 110/50 94 Nasal 1.5L Cannula 11/01 1958 97.4 74 20 102/36 97 Nasal 1.5L Cannula 11/01 1601 98.1 78 20 102/50 94 Nasal 3.0L Cannula 11/01 1600 90 Nasal 1.5L Cannula 11/01 1444 96 Nasal 3.5L Cannula Intake & Output 11/02 1600 11/02 0800 11/02 0000 Intake Total 120 Output Total 90 70 Balance -90 50 Intake, Oral 120 Number 1 Bowel Movements Output, Chest 90 70 Tube Drainage Physical Exam General Appearance: Alert, Oriented X3, Cooperative, No Acute Distress Skin: No Rashes, No Breakdown, chest tueb in place, no erthema, draining dark fluid HEENT: Atraumatic, PERRLA, EOMI Neck: Supple, No JVD Lymphatic: no lad Cardiovascular: Regular Rate, Normal S1, Normal S2, No Murmurs Lungs: Clear to Auscultation, Normal Air Movement Abdomen: Normal Bowel Sounds, Soft, No Tenderness Extremities: No Clubbing, No Cyanosis, No Edema, Normal Pulses Vascular: Normal Pulses Current Medications: Current Medications Sig/Gordon Start time Last Medication Dose Route Stop Time Status Admin Acetaminophen 325 MG .STK-MED ONE 11/02 0048 DC PO 11/02 0049 Acetaminophen 325 MG ONCE ONE 11/01 2345 DC 11/02 PO 11/01 2346 0051 Albuterol Sulfate 3 ML Q4-PRN PRN 10/25 1900 DC INH Alteplase, 10 MG ONCE ONE 11/01 1115 DC 11/01 Recombinant IPL 11/01 1116 1206 Ceftriaxone Sodium 1,000 MG 1400 11/02 1400 AC IV Ceftriaxone Sodium 1,000 MG 1400 10/28 1400 DC 11/01 IV 1414 Ferrous Sulfate 325 MG DAILY 10/26 1000 AC 11/01 PO 0908 Melatonin 5 MG .STK-MED ONE 11/02 0047 DC PO 11/02 0048 Melatonin 5 MG ONCE ONE 11/01 2345 DC 11/02 PO 11/01 2346 0051 Patient Medication 1 ED .STK-MED ONE 11/01 1359 DC Teaching ED 11/01 1400 Last 24 Hrs of Lab/Mando Results Last 24 Hrs of Labs/Mics: Laboratory Tests 11/02/16 0653: Anion Gap 11, Estimated GFR > 60, BUN/Creatinine Ratio 26.7 H Lines/Diet/Fluids Restraints: none Assessment/Plan Assessment: This is of 81-year-old male with past medical history of follicular lymphoma ( diag : 2 years ago0 status post chemotherapy (follows up with Dr. Chen), last chemotherapy 3 months ago, came into the emergency department 10/25/2016 after being sent from Dr. Chen's office secondary to sustaining a fall injury was found ot have consolidation on cxray - cap,started on IV ceftriaxone and azithromycin, and was hydrated with IV fluids.He was found to be tachycardic ( ) at the rate of 170, EKG showed new T-wave inversions in V1 and V2 V3 and P-wave inversions on 82, troponin was found to be negative, CT was negative for PE, however the patient was transferred to telemetry as her heart rate was as high as 170, he spiked temperature and his blood pressure was low at 80/48.He was found to have bilateral pleural effusion in is now status post thoracocentesis wiht lytic therapy X2 Problem list along with assessment and plan #1 Community-acquired pneumonia. * Urine cultures were positive for strep pneumonia antigen. * Continue IV ceftriaxone - day 6 * No growth on blood cultures so far, ct ot follow. * Continue to monitor oxygen and taper saturations keeping it above 92% of the time. #2 Bilateral pleural effusion, left-sided loculated infusion status post thoracocentesis and lytic therapy + chest tube placement, empyema. * Patient had a thoracocentesis 10/28/16 and revision 10/29/16 and pleural fluid was sent for analysis and cytology, which was negative for malignancy. * Pleural fluid was noted to be exudative in nature consistent with emypema and infectious etiology,he recieved lytic therapy 10/30/16 and 11/01/16, await decision on third lytic therapy as per pulm. * Continue IV antibiotics with ceftriaxone - Day 6 #3 History of Follicular Lymphoma. * Diagnosis 2 years ago, status post 6 cycles of chemotherapy last one being 6 months ago. * Stable. #4 History of Anemia. * Continue iron supplementation #5 Moderate Protein Calorie Malnutrition. * Continue ensure enlive BID, Po intake improving- 75% breakfast , 50% lunch. FC DVt Px : ALPS Problem List: 1. Empyema 2. Hypotension 3. Follicular lymphoma 4. CAP (community acquired pneumonia) 5. Weakness 6. Pleural effusion Pain Ratin Pain Location: na Pain Goal: Remain pain free Pain Plan: tylenol Tomorrow's Labs & Rationales: DACRI Hu MD 11/02/16 1004: Attending MD Review Statement Attending Statement Attending MD Statement: examined this patient, discuss w/resident/PA/FISHER LAMPARA NET, agreed w/resident/PA/FISHER LAMPARA NET, reviewed EMR data (avail), discussed with nursing, discussed with case mgmt Attending Assessment/Plan: Patient is in a bad mood. He doesn't want to be bothered today. I explained to him at length that if he doesn't get up and out of bed with physical therapy about people to discharge him. He is an 81-year-old male with a history of non- Hodgkin's lymphoma who is here with a pneumococcal pneumonia and pneumococcal empyema. He has a chest tube in place and he got lytic therapy yesterday for the second time. We will need to watch the output from the chest tube closely. He is on Alps for DVT prophylaxis and has been refusing physical therapy almost daily. He is pretty cachectic and emaciated looking and oncology has said outpatient follow-up.
--- NOTE | 2016-11-02 11:43 | PN- Pulmonary ---
Subjective HPI/Critical Care Issues: Patient seen and examined. No chest pain, dyspnea at rest and exertion. Lethargy and exhaustion. No nausea, vomiting, diarrhea or constipation. Afebrile and hemodynamically stable. Objective Current Medications: Current Medications Sig/Gordon Start time Last Medication Dose Route Stop Time Status Admin Acetaminophen 325 MG .STK-MED ONE 11/02 0048 DC PO 11/02 0049 Acetaminophen 325 MG ONCE ONE 11/01 2345 DC 11/02 PO 11/01 234 0051 Albuterol Sulfate 3 ML Q4-PRN PRN 10/25 1900 DC INH Alteplase, 10 MG ONCE ONE 11/02 1100 DC Recombinant IPL 11/02 1101 Ceftriaxone Sodium 1,000 MG 1400 11/02 1400 AC IV Ceftriaxone Sodium 1,000 MG 1400 10/28 1400 DC 11/01 IV 1414 Ferrous Sulfate 325 MG DAILY 10/26 1000 AC 11/02 PO 1036 Melatonin 5 MG .STK-MED ONE 11/02 0047 DC PO 11/02 0048 Melatonin 5 MG ONCE ONE 11/01 2345 DC 11/02 PO 11/01 2346 0051 Patient Medication 1 ED .STK-MED ONE 11/01 1359 DC Teaching ED 11/01 1400 Vital Signs & I&O Last 24 Hrs of Vitals and I&O: Vital Signs Date Time Temp Pulse Resp B/P Pulse O2 O2 Flow FiO2 Ox Delivery Rate 11/02 0908 97.6 65 18 92/50 96 Nasal 1.0L Cannula 11/02 0000 94 Nasal 1.5L Cannula 11/01 2354 98.4 76 18 110/50 94 Nasal 1.5L Cannula 11/01 1958 97.4 74 20 102/36 97 Nasal 1.5L Cannula 11/01 1601 98.1 78 20 102/50 94 Nasal 3.0L Cannula 11/01 1600 90 Nasal 1.5L Cannula 11/01 1444 96 Nasal 3.5L Cannula Intake & Output 11/02 1600 11/02 0800 11/02 0000 Intake Total 120 Output Total 90 70 Balance -90 50 Intake, Oral 120 Number 1 Bowel Movements Output, Chest 90 70 Tube Drainage Exam Other Physical Findings: General - Alert, awake and oriented, cachectic HEENT - normocephalic, atraumatic Cardiovascular - S1, S2 Lungs - diminished breath sounds bilaterally, left chest tube Abdomen - soft, bowel sounds positive, no tenderness Extremities - without edema or cyanosis Results Last 24 Hrs of Lab Results: Laboratory Tests 11/02/16 0653: Anion Gap 11, Estimated GFR > 60, BUN/Creatinine Ratio 26.7 H Impression/Plan Impression/Plan Impression/Plan: Impression 81 year old man * Loculated left sided pleural effusion, right sided effusion * airpsace disease consistent with pneumonia secondary to likely streptococcal pneumonia given positive antigen * exudative effusion consistent with empyema vs malignant fluid * Follicular lymphoma * Fatigue, deconditioning Plan - lytic therapy today and monitor drainage in the pleura Vac, afterwards will re -image chest ct over the week to evaluate lung parenchyma and pleural disease - cont ceftriaxone - + strep pneumo - spo2 goal >88% DVT prophylaxis at all times
--- NOTE | 2016-11-02 12:00 | NUR ---
NURSING NOTE: PATIENT REFUSED TO GET OUT OF BED WITH PT. DID ACCEPT TO DO IN BED EXERCISES. WILL CONTINUE TO MONITOR.
--- NOTE | 2016-11-02 12:30 | NUR ---
NURSING NOTE: PATIENT RECIEVED ALTEPLASE INJECTION THROUGH CHEST TUBE ADMINISTERED BY SURGICAL PA PAO LOCK, CONTINUOUS LOW WALL SUCTION ON HOLD X4 HOURS PER PA. WILL RESUME SUCTION @ 1630. WILL CONTINUE TO MONITOR.
--- NOTE | 2016-11-02 12:41 | Event Note ---
Event Note Event Note: alteplase 10mg/20mls instilled into chest tube without difficulty @ 12:30. patient tolerated well. to stay indwelling for the next 4 hours. nurse verbalizes understanding to open to drainage @ 16:30. monitor chest tube drainage d/w
[2016-11-02 15:50] VITALS: BP 95/45
[2016-11-02 23:40] VITALS: BP 97/50
[2016-11-03 08:27] VITALS: BP 100/50
--- NOTE | 2016-11-03 09:15 | PN- Housestaff ---
Subjective Follow-up For: Currently, pneumonia, bilateral exudative pleural effusions, empyema, status post thoracentesis and lytic therapy Complaints: no complaints Subjective: I examined the patient today. He is resting comfortably in the bed, not in apparent distress. His weakness has improved compared to yesterday. His vitals have been stable, no issues overnight. Review of Systems Constitutional: Reports: no symptoms. Cardiovascular: Reports: no symptoms. Respiratory: Reports: no symptoms. Gastrointestinal: Reports: no symptoms. Genitourinary: Reports: no symptoms. Objective Last 24 Hrs of Vital Signs/I&O Vital Signs Date Time Temp Pulse Resp B/P Pulse O2 O2 Flow FiO2 Ox Delivery Rate 11/03 0827 98.0 69 20 100/50 97 Nasal 1.0L Cannula 11/03 0000 Nasal 1.5L Cannula 11/02 2340 97.6 75 20 97/50 96 Nasal 1.0L Cannula Intake & Output 11/03 1600 11/03 0800 11/03 0000 Intake Total 200 300 Output Total 50 10 100 Balance -50 190 200 Intake, Oral 200 300 Number 1 1 Bowel Movements Output, Chest 10 100 Tube Drainage Output, Urine 50 Physical Exam General Appearance: Alert, Oriented X3, Cooperative, No Acute Distress Cardiovascular: Regular Rate, Normal S1, Normal S2 Lungs: bilateral crepitations at the basal zones, not in respiratory distress, but oxygen being delivered via nasal cannula at 1 L/m, chest tube in place, draining fluid 190 mL in last 24 hours Abdomen: Normal Bowel Sounds, Soft, No Tenderness Neurological: grossly intact Extremities: No Clubbing, No Cyanosis, No Edema, Normal Pulses, No Tenderness/ Swelling Current Medications: Current Medications Sig/Gordon Start time Last Medication Dose Route Stop Time Status Admin Acetaminophen 325 MG ONCE ONE 11/03 99 DC 11/03 PO 11/03 100 010 Ceftriaxone Sodium 1,000 MG 1400 11/02 1400 AC 11/03 IV 1428 Ferrous Sulfate 325 MG DAILY 10/26 1000 AC 11/03 PO 1052 Melatonin 5 MG ONCE ONE 11/03 99 DC 11/03 PO 11/03 100 010 Last 24 Hrs of Lab/Mando Results Last 24 Hrs of Labs/Mics: Laboratory Tests 11/03/16 0640: Anion Gap 10, Estimated GFR > 60, BUN/Creatinine Ratio 28.3 H Assessment/Plan Assessment: This is of 81-year-old male with past medical history of follicular lymphoma ( diag : 2 years ago0 status post chemotherapy (follows up with Dr. Chen), last chemotherapy 3 months ago, came into the emergency department 10/25/2016 after being sent from Dr. Chen's office secondary to sustaining a fall injury was found ot have consolidation on cxray - cap,started on IV ceftriaxone and azithromycin, and was hydrated with IV fluids.He was found to be tachycardic ( ) at the rate of 170, EKG showed new T-wave inversions in V1 and V2 V3 and P-wave inversions on 82, troponin was found to be negative, CT was negative for PE, however the patient was transferred to telemetry as her heart rate was as high as 170, he spiked temperature and his blood pressure was low at 80/48.He was found to have bilateral pleural effusion in is now status post thoracocentesis wiht lytic therapy X2 Problem list along with assessment and plan #1 Community-acquired pneumonia. * Urine cultures were positive for strep pneumonia antigen. * Continue IV ceftriaxone * No growth on blood cultures so far, ct ot follow. * Continue to monitor oxygen and taper saturations keeping it above 92% of the time. * Patient has been saturating well, continued oxygen delivery by nasal cannula at 1 L/m #2 Bilateral pleural effusion, left-sided loculated infusion status post thoracocentesis and lytic therapy + chest tube placement, empyema. * Patient had a thoracocentesis 10/28/16 and revision 10/29/16 and pleural fluid was sent for analysis and cytology, which was negative for malignancy. * Pleural fluid was noted to be exudative in nature consistent with emypema and infectious etiology,he recieved lytic therapy 10/30/16 and 11/01/16, await decision on third lytic therapy as per pulm. * Continue IV antibiotics with ceftriaxone * Drainage in last 24 hours of November 02 is 190 mL #3 History of Follicular Lymphoma. * Diagnosis 2 years ago, status post 6 cycles of chemotherapy last one being 6 months ago. * Stable. #4 History of Anemia. * Continue iron supplementation #5 Moderate Protein Calorie Malnutrition. * Continue ensure enlive BID, Po intake improving- 75% breakfast , 50% lunch. FC DVt Px : ALPS Problem List: 1. CAP (community acquired pneumonia) 2. Empyema 3. Follicular lymphoma 4. Weakness 5. Pleural effusion Pain Ratin Pain Location: - Pain Goal: Remain pain free Pain Plan: When necessary Tomorrow's Labs & Rationales: BEP, to monitor his renal function, as his input and output has not been well- balanced
--- NOTE | 2016-11-03 14:06 | PN- Pulmonary ---
Subjective HPI/Critical Care Issues: S/p ALteplase infusion stable minimal drainage from the tube Patient seen and examined. No chest pain, dyspnea at rest and exertion. Lethargy and exhaustion. No nausea, vomiting, diarrhea or constipation. Afebrile and hemodynamically stable. Objective Current Medications: Current Medications Sig/Gordon Start time Last Medication Dose Route Stop Time Status Admin Acetaminophen 325 MG ONCE ONE 11/03 99 DC 11/03 PO 11/03 0101 0103 Ceftriaxone Sodium 1,000 MG 1400 11/02 1400 AC 11/02 IV 1444 Ferrous Sulfate 325 MG DAILY 10/26 1000 AC 11/03 PO 1052 Melatonin 5 MG ONCE ONE 11/03 010 DC 11/03 PO 11/03 0101 0103 Laboratory Tests 11/03 11/02 0640 0653 Chemistry Sodium (137 - 145 mmol/L) 134 L 134 L Potassium (3.5 - 5.1 mmol/L) 4.5 4.5 Chloride (98 - 107 mmol/L) 92 L 92 L Carbon Dioxide (22 - 30 mmol/L) 32 H 30 Anion Gap (5 - 16) 10 11 BUN (9 - 20 mg/dL) 17 16 Creatinine (0.7 - 1.2 mg/dL) 0.6 L 0.6 L Estimated GFR (>60 ml/min) > 60 > 60 BUN/Creatinine Ratio (7 - 25 %) 28.3 H 26.7 H Vital Signs & I&O Last 24 Hrs of Vitals and I&O: Vital Signs Date Time Temp Pulse Resp B/P Pulse O2 O2 Flow FiO2 Ox Delivery Rate 11/03 0827 98.0 69 20 100/50 97 Nasal 1.0L Cannula 11/03 0000 Nasal 1.5L Cannula 11/02 2340 97.6 75 20 97/50 96 Nasal 1.0L Cannula 11/02 1550 97.6 68 20 95/45 91 Nasal 1.0L Cannula Intake & Output 11/03 1600 11/03 0800 11/03 0000 Intake Total 200 300 Output Total 50 10 100 Balance -50 190 200 Intake, Oral 200 300 Number 1 1 Bowel Movements Output, Chest 10 100 Tube Drainage Output, Urine 50 Laboratory Tests 11/03 11/02 0640 0653 Chemistry Sodium (137 - 145 mmol/L) 134 L 134 L Potassium (3.5 - 5.1 mmol/L) 4.5 4.5 Chloride (98 - 107 mmol/L) 92 L 92 L Carbon Dioxide (22 - 30 mmol/L) 32 H 30 Anion Gap (5 - 16) 10 11 BUN (9 - 20 mg/dL) 17 16 Creatinine (0.7 - 1.2 mg/dL) 0.6 L 0.6 L Estimated GFR (>60 ml/min) > 60 > 60 BUN/Creatinine Ratio (7 - 25 %) 28.3 H 26.7 H Impression/Plan Impression/Plan Impression/Plan: 81 year old man * Loculated left sided pleural effusion, right sided effusion now with pleural cath with alteplase infusion * airpsace disease consistent with pneumonia secondary to likely streptococcal pneumonia given positive antigen * Exudative effusion consistent with empyema * Follicular lymphoma * Fatigue, deconditioning REC COnt chest tube Cxr today to assess the effusion Cont abx and can change to po ceftin soon
--- NOTE | 2016-11-03 15:58 | PN- Att Addend ---
Attending MD Review Statement Attending Statement Attending MD Statement: examined this patient, discuss w/resident/PA/BASEBALL PITCHER, agreed w/resident/PA/BASEBALL PITCHER, reviewed EMR data (avail), discussed w/nursing Attending Assessment/Plan: Patient seen and examined at bedside and discussed with the resident the care plan. Pneumococcal pneumonia and empyema status post chest tube placement. Pulmonology following and will follow further recommendations. Patient currently on IV ceftriaxone. Will get bladder scan to rule out any urinary retention. I discussed with patient the care plan and also discussed with the nurse the care plan.
--- NOTE | 2016-11-03 17:04 | NUR ---
Physical Therapy-Pt refused tx c report that he did not need therapy. Will cont to offer tx & encourage pt to participate.
[2016-11-03 17:09] VITALS: BP 138/64; BP 91/41
[2016-11-04] VITALS: BP 104/50
[2016-11-04 08:08] VITALS: BP 100/46
--- NOTE | 2016-11-04 08:32 | PN- Housestaff ---
Subjective Follow-up For: pneumonia empyema, status post thoracentesis and lytic therapy Subjective: seen and examined patient, offers no complaints. Denies fever, chill, chest pain , shortness of breath. no overnight events reported Review of Systems Constitutional: Denies: chills, diaphoresis, fever, malaise, weakness, unexplained weight loss. Cardiovascular: Denies: chest pain, edema, orthopena, palpitations, peripheral edema, syncope. Respiratory: Denies: see HPI, cough, hemoptysis, orthopnea, short of breath, sputum production, stridor, wheezing. Objective Last 24 Hrs of Vital Signs/I&O Vital Signs Date Time Temp Pulse Resp B/P Pulse O2 O2 Flow FiO2 Ox Delivery Rate 11/04 0808 97.6 71 20 100/46 96 Nasal 1.0L Cannula 11/04 0000 Nasal 1.5L Cannula 11/04 0000 97.9 68 20 104/50 96 Nasal 2.0L Cannula 11/03 1709 97.4 77 20 91/41 96 Intake & Output 11/04 1600 11/04 0800 11/04 0000 Intake Total 120 240 Output Total 200 895 Balance -80 -655 Intake, Oral 120 240 Number 2 Bowel Movements Output, Chest 220 Tube Drainage Output, Urine 200 675 Physical Exam General Appearance: Alert, Oriented X3, Cooperative, No Acute Distress Cardiovascular: Regular Rate, Normal S1, Normal S2 Lungs: Clear to Auscultation, Normal Air Movement, pleural cath in place, minimal drainage, no signs of infection around insertion site Abdomen: Normal Bowel Sounds, Soft, No Tenderness Extremities: No Edema Current Medications: Current Medications Sig/Gordon Start time Last Medication Dose Route Stop Time Status Admin Ceftriaxone Sodium 1,000 MG 1400 11/02 1400 DC 11/03 IV 1428 Cefuroxime Sodium 250 MG Q12 11/03 2200 AC 11/04 PO 1100 Ferrous Sulfate 325 MG DAILY 10/26 1000 AC 11/04 PO 1100 Last 24 Hrs of Lab/Mando Results Last 24 Hrs of Labs/Mics: Laboratory Tests 11/04/16 0643: Anion Gap 12, Estimated GFR > 60, BUN/Creatinine Ratio 26.0 H Assessment/Plan Assessment: 81-year-old male with past medical history of follicular lymphoma (diag : 2 years ago status post chemotherapy ( last chemotherapy 3 months ago) sent from Dr. Chen's office secondary to sustaining a fall injury. Found to have loculated left sided pleural effusion, right sided effusion s/p pleural cath with alteplase infusion. CT was negative for PE. plan #1 Community-acquired pneumonia. * Urine cultures were positive for strep pneumonia antigen. * Continue IV ceftriaxone * No growth on blood cultures so far * Continue to monitor oxygen and taper saturations keeping it above 92% of the time. #2 Bilateral pleural effusion, left-sided loculated infusion status post thoracocentesis and lytic therapy + chest tube placement, empyema. * Patient had a thoracocentesis 10/28/16 and revision 10/29/16 and pleural fluid was sent for analysis and cytology, which was negative for malignancy. * Pleural fluid was noted to be exudative in nature consistent with empyema, recieved lytic therapy 10/30/16 and 11/01/16, await decision on third lytic therapy as per pulm. * minimal drainage noted today * per pulm will obtain CXR today #3 History of Follicular Lymphoma. * status post 6 cycles of chemotherapy last one being 6 months ago. * Stable. #4 History of Anemia. * Continue iron supplementation FC DVt Px : ALPS Problem List: 1. Pleural effusion 2. CAP (community acquired pneumonia) 3. Follicular lymphoma 4. Empyema Pain Ratin Pain Location: na Pain Goal: Pain 4 or less Pain Plan: current regimen Tomorrow's Labs & Rationales: cbc/bep
--- NOTE | 2016-11-04 11:36 | PN- Pulmonary ---
Subjective HPI/Critical Care Issues: Doing better still in poor spirits minimal drainage from the tube Patient seen and examined. No chest pain, dyspnea at rest and exertion. Lethargy and exhaustion. No nausea, vomiting, diarrhea or constipation. Afebrile and hemodynamically stable. Objective Current Medications: Current Medications Sig/Gordon Start time Last Medication Dose Route Stop Time Status Admin Ceftriaxone Sodium 1,000 MG 1400 11/02 1400 DC 11/03 IV 1428 Cefuroxime Sodium 250 MG Q12 11/03 2200 AC 11/04 PO 1100 Ferrous Sulfate 325 MG DAILY 10/26 1000 AC 11/04 PO 1100 Vital Signs & I&O Last 24 Hrs of Vitals and I&O: Vital Signs Date Time Temp Pulse Resp B/P Pulse O2 O2 Flow FiO2 Ox Delivery Rate 11/04 0808 97.6 71 20 100/46 96 Nasal 1.0L Cannula 11/04 0000 Nasal 1.5L Cannula 11/04 0000 97.9 68 20 104/50 96 Nasal 2.0L Cannula 11/03 1709 97.4 77 20 91/41 96 Intake & Output 11/04 1600 11/04 0800 11/04 0000 Intake Total 120 240 Output Total 200 895 Balance -80 -655 Intake, Oral 120 240 Number 2 Bowel Movements Output, Chest 220 Tube Drainage Output, Urine 200 675 Impression/Plan Impression/Plan Impression/Plan: 81 year old man * Loculated left sided pleural effusion, right sided effusion now with pleural cath with alteplase infusion * airpsace disease consistent with pneumonia secondary to likely streptococcal pneumonia given positive antigen * Exudative effusion consistent with empyema * Follicular lymphoma * Fatigue, deconditioning REC COnt chest tube Cxr today to assess the effusion, PORTABLE Cont abx and can change to po ceftin soon
[2016-11-04 16:54] VITALS: BP 102/58
--- NOTE | 2016-11-04 18:30 | NUR ---
PATIENT AMBULATED WITH THIS RN AND RW TO BATHROOM TWICE TODAY. HE FELT ESOB BUT WAS ABLE TO RECOVER IN THE BATHROOM AND MAKE IT BACK TO THE BED BOTH TIMES.
--- NOTE | 2016-11-04 18:49 | PN- Att Addend ---
Attending MD Review Statement Attending Statement Attending MD Statement: examined this patient, discuss w/resident/PA/ACQUISITION SPECIALIST, agreed w/resident/PA/ACQUISITION SPECIALIST, reviewed EMR data (avail), discussed w/nursing Attending Assessment/Plan: Patient seen and examined at bedside and discussed with the resident the care plan. Pneumococcal pneumonia and empyema status post chest tube placement. Pulmonology following and will follow further recommendations. Patient currently on IV ceftriaxone. Did not have much drainage today. ordered cxr -will f/u on results. bladder scan to rule out any urinary retention revealed no urinary retention. I discussed with patient the care plan and also discussed with the nurse the care plan.
--- NOTE | 2016-11-04 19:28 | RADIOLOGY REPORT ---
EXAMINATION: XR PORTABLE CHEST CLINICAL INFORMATION: Shortness of breath. Chest tube. Evaluate pleural fluid. COMPARISON: 10/28/2016. TECHNIQUE: Frontal upright view of the chest. FINDINGS: Minimal rotation toward the left. The mediastinal size is within normal limits. No large hilar mass. There is pleural and parenchymal opacity in the lower chest bilaterally. There is density along the left lateral chest wall extending into the apex and there is some right apical thickening. There is a probable hydropneumothorax surrounding the tip of a drainage catheter in the lateral left lower chest. The aeration at the bases has improved. IMPRESSION: Drainage catheter in the left lower chest. There is a cast collection surrounding the catheter tip. There are some pleural-parenchymal opacities bilaterally which have improved. Possibilities include noncompliant lung. There was no gas collection in the left lower chest on CT 10/27/2016. There was no cavitary process or abscess in the lung parenchyma at the time of the previous CT. This makes noncompliant lung more likely.
[2016-11-04 23:49] VITALS: BP 100/58
--- NOTE | 2016-11-05 06:01 | PN- Housestaff ---
BUNNY THOMAS 11/05/16 0600: Subjective Follow-up For: -B/l Plueral effusion s/p thoracocentesis and chest tbe s/p lytic therapy. Complaints: no complaints Review of Systems Constitutional: Reports: see HPI. Objective Last 24 Hrs of Vital Signs/I&O Vital Signs Date Time Temp Pulse Resp B/P Pulse O2 O2 Flow FiO2 Ox Delivery Rate 11/05 0000 96 Nasal 1.5L Cannula 11/04 2349 97.4 67 20 100/58 96 11/04 1654 97.9 69 20 102/58 94 11/04 0808 97.6 71 20 100/46 96 Nasal 1.0L Cannula 11/04 0800 95 Nasal 1.5L Cannula Intake & Output 11/05 0800 11/05 0000 11/04 1600 Intake Total 120 600 Output Total 455 410 Balance -335 190 Intake, Oral 120 600 Number 0 2 Bowel Movements Output, Chest 80 110 Tube Drainage Output, Urine 375 300 Physical Exam General Appearance: Alert, Oriented X3, Cooperative, No Acute Distress Skin: No Rashes, No Breakdown, No Significant Lesion HEENT: Atraumatic, PERRLA, EOMI Cardiovascular: Normal S1, Normal S2, No Murmurs Lungs: Normal Air Movement Abdomen: Normal Bowel Sounds, Soft, No Tenderness, No Hepatospenomegaly Extremities: No Clubbing, No Cyanosis, No Edema, Normal Pulses Vascular: Normal Pulses Current Medications: Current Medications Sig/Gordon Start time Last Medication Dose Route Stop Time Status Admin Cefuroxime Sodium 250 MG Q12 11/03 2200 AC 11/04 PO 2239 Ferrous Sulfate 325 MG DAILY 10/26 1000 AC 11/04 PO 1100 Last 24 Hrs of Lab/Mando Results Last 24 Hrs of Labs/Mics: Laboratory Tests 11/04/16 0643: Anion Gap 12, Estimated GFR > 60, BUN/Creatinine Ratio 26.0 H Lines/Diet/Fluids Restraints: none Assessment/Plan Assessment: 81-year-old male with past medical history of follicular lymphoma (diag : 2 years ago status post chemotherapy ( last chemotherapy 3 months ago) sent from Dr. Chen's office secondary to sustaining a fall injury. Found to have loculated left sided pleural effusion, right sided effusion s/p pleural cath with alteplase infusion. CT was negative for PE. plan #1 Community-acquired pneumonia. * Urine cultures were positive for strep pneumonia antigen. * Continue po ceftin for total of 21 days. * No growth on blood cultures so far * Continue to monitor oxygen and taper saturations keeping it above 92% of the time. #2 Bilateral pleural effusion, left-sided loculated infusion status post thoracocentesis and lytic therapy + chest tube placement, empyema. * Patient had a thoracocentesis 10/28/16 and revision 10/29/16 and pleural fluid was sent for analysis and cytology, which was negative for malignancy. * Pleural fluid was noted to be exudative in nature consistent with empyema, recieved lytic therapy 10/30/16 and 11/01/16, await decision on third lytic therapy as per pulm. * minimal drainage noted today * per pulm will obtain Ct chest today. #3 History of Follicular Lymphoma. * status post 6 cycles of chemotherapy last one being 6 months ago. * Stable. #4 History of Anemia. * Continue iron supplementation FC DVt Px : ALPS Problem List: 1. Follicular lymphoma 2. CAP (community acquired pneumonia) 3. Pleural effusion 4. Empyema 5. Hypotension 6. Pneumonia Pain Ratin Pain Location: na Pain Goal: Remain pain free Pain Plan: tylenol Tomorrow's Labs & Rationales: not needed LINDA ALTMAN MD 11/05/16 1213: Attending MD Review Statement Attending Statement Attending MD Statement: examined this patient, discuss w/resident/PA/TOP LIFT TRIMMER, agreed w/resident/PA/TOP LIFT TRIMMER, reviewed EMR data (avail), discussed with nursing, discussed with case mgmt, reviewed images, amended to note Attending Assessment/Plan: Patient seen and examined, denies any complaints. Things that his breathing has improved. He still has a chest tube which is draining although the drainage has decreased. Vital Signs Date Time Temp Pulse Resp B/P Pulse O2 O2 Flow FiO2 Ox Delivery Rate 11/05 0800 Nasal 1.5L Cannula 11/05 0800 97.1 64 18 104/60 95 Nasal 1.5L Cannula 11/05 0000 96 Nasal 1.5L Cannula 11/04 2349 97.4 67 20 100/58 96 11/04 1654 97.9 69 20 102/58 94 on exam ; aox3, nad. cv; s1,s2, rrr. resp; clear. abd; soft, nt, bs+ ext; no edema Laboratory Tests 11/05 0640 Chemistry Sodium (137 - 145 mmol/L) 134 L Potassium (3.5 - 5.1 mmol/L) 4.7 Chloride (98 - 107 mmol/L) 98 Carbon Dioxide (22 - 30 mmol/L) 31 H Anion Gap (5 - 16) 5 BUN (9 - 20 mg/dL) 14 Creatinine (0.7 - 1.2 mg/dL) 0.5 L Estimated GFR (>60 ml/min) > 60 BUN/Creatinine Ratio (7 - 25 %) 28.0 H Magnesium (1.6 - 2.3 mg/dL) 2.3 Hematology CBC w Diff NO MAN DIFF REQ WBC (4.8 - 10.8 /CUMM) 6.1 RBC (4.70 - 6.10 /CUMM) 2.97 L Hgb (14.0 - 18.0 G/DL) 9.2 L Hct (42 - 52 %) 27.7 L MCV (80.0 - 94.0 FL) 93.4 MCH (27.0 - 31.0 PG) 30.9 RDW (11.5 - 14.5 %) 15.0 H Plt Count (130 - 400 /CUMM) 279 MPV (7.4 - 10.4 FL) 7.7 Gran % (42.2 - 75.2 %) 58.6 Lymphocytes % (20.5 - 51.1 %) 29.0 Monocytes % (1.7 - 9.3 %) 10.7 H Eosinophils % (0 - 5 %) 1.4 Basophils % (0.0 - 2.0 %) 0.3 Absolute Granulocytes (1.4 - 6.5 /CUMM) 3.6 Absolute Lymphocytes (1.2 - 3.4 /CUMM) 1.8 Absolute Monocytes (0.10 - 0.60 /CUMM) 0.6 Absolute Eosinophils (0.0 - 0.7 /CUMM) 0.1 Absolute Basophils (0.0 - 0.2 /CUMM) 0 PUBS MCHC (33.0 - 37.0 G/DL) 33.1 A/P: 81 y/o M with pmh sig for follicular lymphoma status post chemotherapy ( following Dr. Chen), and anemia, admitted with community-acquired pneumonia which was found to have streptococcal pneumonia. Patient also had empyema and now status post lytic therapy and chest tube. Chest tube still draining but the drainage has decreased. Per pulmonology, will repeat a chest CT today without contrast to assess. Patient currently getting treated with oral antibiotics. Will likely need for total of 3-4 weeks of antibiotics total. DVT prophylaxis: ALPS.
[2016-11-05 08:00] VITALS: BP 104/60
[2016-11-05 09:21] LABS: ABSOLUTE BASOPHIL COUNT 0 /CUMM (0.0-0.2); ABSOLUTE LYMPH COUNT 1.8 /CUMM (1.2-3.4); RED BLOOD CELL CT 2.97 /CUMM (4.70-6.10)
--- NOTE | 2016-11-05 09:45 | PN- Pulmonary ---
Subjective HPI/Critical Care Issues: pt seen and examined some output from chest tube slowing down afebrile 96% 1.5LNC Objective Current Medications: Current Medications Sig/Gordon Start time Last Medication Dose Route Stop Time Status Admin Cefuroxime Sodium 500 MG Q12 11/05 1000 AC PO Cefuroxime Sodium 250 MG Q12 11/03 2200 DC 11/04 PO 2239 Ferrous Sulfate 325 MG DAILY 10/26 1000 AC 11/04 PO 1100 Vital Signs & I&O Last 24 Hrs of Vitals and I&O: Vital Signs Date Time Temp Pulse Resp B/P Pulse O2 O2 Flow FiO2 Ox Delivery Rate 11/05 0000 96 Nasal 1.5L Cannula 11/04 2349 97.4 67 20 100/58 96 11/04 1654 97.9 69 20 102/58 94 Intake & Output 11/05 1600 11/05 0800 11/05 0000 Intake Total 120 Output Total 320 455 Balance -320 -335 Intake, Oral 120 Number 0 Bowel Movements Output, Chest 20 80 Tube Drainage Output, Urine 300 375 Exam Other Physical Findings: General - awake, extubated HEENT - NCAT Cardiovascular - S1, S2 Lungs - clear to auscultation bilaterally Abdomen - soft, bowel sounds positive, no tenderness Extremities - right sided edema in upper extremity Results Last 24 Hrs of Lab Results: Laboratory Tests 11/05/16 0640: Anion Gap 5, Estimated GFR > 60, BUN/Creatinine Ratio 28.0 H, Magnesium 2.3, CBC w Diff Pending, WBC Pending, RBC Pending, Hgb Pending, Hct Pending, MCV Pending, MCH Pending, RDW Pending, Plt Count Pending, MPV Pending, PUBS MCHC Pending Impression/Plan Impression/Plan Impression/Plan: Impression 81 year old man * Loculated left sided pleural effusion, right sided effusion * airpsace disease consistent with pneumonia secondary to likely streptococcal pneumonia given positive antigen * exudative effusion consistent with empyema vs malignant fluid * Follicular lymphoma * Fatigue, deconditioning Plan - s/p lytic therapy - would check CT chest without contrast today to evaluate lung parenchyma and pleural disease - cont abx - + strep pneumo - spo2 goal >88% DVT prophylaxis at all times
--- NOTE | 2016-11-05 10:07 | NUR ---
RECEIVED PT. SITTING IN BED. ASKED PT. HOW HE WAS FEELING AND IF HE WANTED TO PARTICIPATE IN THEREX. PT REFUSED REQUEST. UPON TELLING HIM IT WOULD BE GOOD TO PARTICIPATE HE INTERUPPTED AND STATED "I SAID NO THANK YOU." PT WOULDN'T MAINTAIN EYE CONTACT THROUGHOUT INTERACTION BY CLOSING HIS EYES. CONT PER POC.
[2016-11-05 10:13] LABS: ABSOLUTE EOSINOPHIL COUNT 0.1 /CUMM (0.0-0.7); ABSOLUTE GRANULOCYTE CT 3.6 /CUMM (1.4-6.5); ABSOLUTE MONOCYTE COUNT 0.6 /CUMM (0.10-0.60); BASOPHIL % 0.3 % (0.0-2.0); EOSINOPHIL % 1.4 % (0-5); GRANULOCYTE % 58.6 % (42.2-75.2); HEMATOCRIT 27.7 % (42-52); MEAN CORPUSCULAR HGB 30.9 PG (27.0-31.0); MEAN CORPUSCULAR HGB CONC 33.1 G/DL (33.0-37.0); MEAN CORPUSCULAR VOLUME 93.4 FL (80.0-94.0); MEAN PLATELET VOLUME 7.7 FL (7.4-10.4); WHITE BLOOD CELL COUNT 6.1 /CUMM (4.8-10.8)
[2016-11-05 10:19] LABS: PLATELET COUNT 279 /CUMM (130-400)
--- NOTE | 2016-11-05 10:21 | NUR ---
wound care: requested by nursing staff to evaluate pt for skin alterations to coccyx - pt evaluated in bed - coccyx presents with a 6x6 cm pink poorly blanching area to coccyx along bony prominence - skin intact - no c/o voiced impression: stage 1 pressure injury recommendation: apply moisture barrier qs and prn - encourage sidelying position wib - cont use of group 2 alternating pressure mattress
--- NOTE | 2016-11-05 12:32 | NUR ---
NURSING NOTE: PATIENT LEFT FLOOR VIA STRETCHER WITH DISTRIBUTION TO CT SCAN. CHEST TUBE IN PLACE TO L SIDE, DISTRIBUTION INFORMED TO KEEP CHEST TUBE CONTAINER UPRIGHT AT ALL TIMES. DISCONNECTED TO LOW WALL SUCTION UNTIL RETURNS. A/OX3, DENIES PAIN AT THIS TIME. WILL AWAIT RETURN
[2016-11-05] MEDS ORDERED: CEFUROXIME250 M1 PO (15:55)
--- NOTE | 2016-11-05 15:57 | CT SCAN REPORT ---
EXAMINATION: CT CHEST WITHOUT CONTRAST CLINICAL INFORMATION: Empyema. Status post thoracentesis. Follow up of loculated pleural effusion. History of lymphoma. COMPARISON: Chest x-ray dated 11/04/2016. CTA of the chest dated 10/27/2016, 07/18/[address] scans dating back to 11/10/2014. TECHNIQUE: Multidetector volumetric CT imaging of the chest was obtained noncontrast. Sagittal and coronal reformations were obtained. DLP: 270.10 mGy-cm. FINDINGS: LUNGS: A left-sided pleural catheter is seen within the complex left pleural effusion with introduction of an air-fluid level into the left pleural space. There is persistent thickening of the parietal and visceral pleura, similar to the previous exam. A small right-sided pleural effusion is also seen, appearing simple with no significant pleural thickening seen. There is associated significant volume loss in the left lower lobe with near total collapse and consolidation of the left lower lobe. There is patchy parenchymal opacities seen in the independent portions of the right lower lobe and periphery of the lingula, improved when compared to the prior exam from 10/27/2016. The central airways remain patent and are mildly thickened. LYMPHOVASCULAR STRUCTURES: Aortic and heart size normal. No pericardial effusion. No significant change in borderline adenopathy left lower paratracheal space, aortopulmonary window, paraesophageal space and in the right hilum with lymph nodes measuring up to approximately 1 cm in short axis. THYROID GLAND: Unremarkable to the extent included. UPPER ABDOMEN: Included portions of the solid organs in the upper abdomen within normal limits. BONES: A convex right thoracic scoliosis is seen with mild vertebral spondylosis. OTHER: There is mucosal thickening and partial opacification of the left maxillary sinus, which is incompletely included on this exam. IMPRESSION: 1. Interval slight decrease in size of left-sided pleural effusion status post pleural catheter placement. A moderate size residual left-sided complex hydropneumothorax is seen. 2. No significant change in small simple right-sided pleural effusion. 3. Left lower lobe consolidation and volume loss, similar to the prior exam. 4. Right lower lobe consolidation improved when compared to 10/27/2016. 5. No significant change in borderline mediastinal and right hilar adenopathy . 6. Left maxillary sinus disease.
[2016-11-05 16:04] VITALS: BP 96/58
[2016-11-05 23:45] VITALS: BP 98/60
--- NOTE | 2016-11-06 07:31 | PN- Housestaff ---
See Addendum Subjective Follow-up For: 1.Community acquired pneumonia. 2.History of follicular lymphoma. 3.Bilateral hemmorhagic , exudative pleural effusion, loculated left-sided effusion, Empyema versus -s/p thoracocentesis and lytic therapy 4.Deconditioning Complaints: no complaints Tele-Events Since Last Visit: off tele Subjective: I have seen and examined the patient today morning, he is stable, pleural fluid is draining much less now, we will do a stat chest x-ray and anticipated removal of the chest tube today later. Patient will continue to take by mouth Ceftin for a total of 21 days. Patient continues to be reluctant to move with physical therapy Review of Systems Constitutional: Reports: see HPI. EENTM: Denies: blurred vision, double vision, visual changes, eye pain. Cardiovascular: Denies: chest pain, edema, orthopena, palpitations. Respiratory: Denies: cough, hemoptysis, orthopnea, short of breath. Gastrointestinal: Reports: no symptoms. Genitourinary: Reports: no symptoms. Musculoskeletal: Reports: see HPI. Objective Last 24 Hrs of Vital Signs/I&O Vital Signs Date Time Temp Pulse Resp B/P Pulse O2 O2 Flow FiO2 Ox Delivery Rate 11/06 0000 Nasal 2.5L Cannula 11/05 2345 97.9 67 20 98/60 97 11/05 1805 Nasal 1.5L Cannula 11/05 1604 97.9 66 20 96/58 97 Nasal 1.5L Cannula 11/05 0800 Nasal 1.5L Cannula 11/05 0800 97.1 64 18 104/60 95 Nasal 1.5L Cannula Intake & Output 11/06 0800 11/06 0000 11/05 1600 Intake Total 700 Output Total 490 590 310 Balance -490 -590 390 Intake, Oral 700 Number 1 1 Bowel Movements Output, Chest 40 15 110 Tube Drainage Output, Urine 450 575 200 Physical Exam General Appearance: Alert, Oriented X3, Cooperative, but doesnot want to move with PT. Skin: No Rashes, No Breakdown, No Significant Lesion HEENT: Atraumatic, PERRLA, EOMI Cardiovascular: Normal S1, Normal S2, No Murmurs Lungs: Clear to Auscultation, Normal Air Movement Abdomen: Normal Bowel Sounds, Soft, No Tenderness Current Medications: Current Medications Sig/Gordon Start time Last Medication Dose Route Stop Time Status Admin Cefuroxime Sodium 500 MG Q12 11/05 1000 AC 11/05 PO 2113 Cefuroxime Sodium 250 MG Q12 11/03 2200 DC 11/04 PO 223 Ferrous Sulfate 325 MG DAILY 10/26 1000 AC 11/05 PO 1053 Last 24 Hrs of Lab/Mando Results Last 24 Hrs of Labs/Mics: Laboratory Tests 11/06/16 0649: Sodium Pending, Potassium Pending, Chloride Pending, Carbon Dioxide Pending, Anion Gap Pending, BUN Pending, Creatinine Pending, BUN/Creatinine Ratio Pending , CBC w Diff Pending, WBC Pending, RBC Pending, Hgb Pending, Hct Pending, MCV Pending, MCH Pending, RDW Pending, Plt Count Pending, MPV Pending, PUBS MCHC Pending Lines/Diet/Fluids Restraints: none Assessment/Plan Assessment: 81-year-old male with past medical history of follicular lymphoma (diag : 2 years ago status post chemotherapy ( last chemotherapy 3 months ago) sent from Dr. Chen's office secondary to sustaining a fall injury. Found to have loculated left sided pleural effusion, right sided effusion s/p pleural cath with alteplase infusion. CT was negative for PE. plan #1 Community-acquired pneumonia. * Urine cultures were positive for strep pneumonia antigen. * Continue po ceftin for total of 21 days. * No growth on blood cultures so far * Continue to monitor oxygen and taper saturations keeping it above 92% of the time. #2 Bilateral pleural effusion, left-sided loculated infusion status post thoracocentesis and lytic therapy + chest tube placement, empyema. * Patient had a thoracocentesis 10/28/16 and revision 10/29/16 and pleural fluid was sent for analysis and cytology, which was negative for malignancy. * Pleural fluid was noted to be exudative in nature consistent with empyema, recieved lytic therapy X 4 * minimal drainage noted today * cT CHEST DONE, likely might pull out chest tube today, await xray in am. #3 History of Follicular Lymphoma. * status post 6 cycles of chemotherapy last one being 6 months ago. * Stable. #4 History of Anemia. * Continue iron supplementation #5 Physical Therapy * Patient continues to refuse participating. * will talk to him again today and try and get him work with PT. FC DVt Px : ALPS Problem List: 1. Empyema 2. Hypotension 3. Follicular lymphoma 4. Pre-syncope Pain Ratin Pain Location: na Pain Goal: Remain pain free Pain Plan: tylenol Tomorrow's Labs & Rationales: ?not needed DVT/Prophylaxis: mechanical
[2016-11-06 07:58] LABS: ABSOLUTE BASOPHIL COUNT 0 /CUMM (0.0-0.2); ABSOLUTE EOSINOPHIL COUNT 0 /CUMM (0.0-0.7); ABSOLUTE GRANULOCYTE CT 3.6 /CUMM (1.4-6.5); ABSOLUTE LYMPH COUNT 1.3 /CUMM (1.2-3.4); ABSOLUTE MONOCYTE COUNT 0.7 /CUMM (0.10-0.60); BASOPHIL % 0.4 % (0.0-2.0); EOSINOPHIL % 0.5 % (0-5); GRANULOCYTE % 63.7 % (42.2-75.2); HEMATOCRIT 28.6 % (42-52); MEAN CORPUSCULAR HGB 31.2 PG (27.0-31.0); MEAN CORPUSCULAR HGB CONC 33.3 G/DL (33.0-37.0); MEAN CORPUSCULAR VOLUME 93.5 FL (80.0-94.0); MEAN PLATELET VOLUME 7.7 FL (7.4-10.4); PLATELET COUNT 290 /CUMM (130-400); RBC DISTRIBUTION WIDTH 15.2 % (11.5-14.5); RED BLOOD CELL CT 3.06 /CUMM (4.70-6.10); WHITE BLOOD CELL COUNT 5.7 /CUMM (4.8-10.8)
[2016-11-06 08:40] VITALS: BP 96/50
--- NOTE | 2016-11-06 08:40 | RADIOLOGY REPORT ---
EXAMINATION: XR PORTABLE CHEST CLINICAL INFORMATION: Follow-up empyema status post chest tube. COMPARISON: CXR from 11/04/2016 TECHNIQUE: Portable view of the chest was obtained. FINDINGS: There is persistent hazy opacity in the right lower lobe. There is persistent consolidation within the left lower lobe. The pleural change catheter remains positioned within a loculated pleural space at the lateral base of the left hemithorax. Within the pleural space, there is small amount of residual fluid, pleural thickening and air, and the pleural pocket is unchanged in size compared to 11/04/2016. No new findings in the chest compared to 11/04/2016. IMPRESSION: The pleural drainage catheter remains in its expected position within the loculated empyema at the lateral base of the left hemithorax.
--- NOTE | 2016-11-06 10:14 | NUR ---
PHYSICAL THERAPY: RECEIVED PT. SLEEPING IN BED. WOKE PT AND ASKED IF HE WOULD LIKE TO PARTICIPATE IN SOME BED EXERCISES AND REFUSED. PT REFUSED TO PARTICIPATE IN BED MOBILITY AND TRANSFERS WELL. CONT PER POC.
--- NOTE | 2016-11-06 12:19 | PN- Pulmonary ---
Subjective HPI/Critical Care Issues: Patient seen and examined this morning. He is afebrile at 98.1. He is nasal cannula is at 1-1/2 L saturating 95%. His chest x-ray this morning with a pleural drainage catheter in the expected position. CAT scan of the chest was reviewed showed a slight decrease in left-sided pleural effusion moderate-sized residual left-sided complex hydropneumothorax. Objective Current Medications: Current Medications Sig/Gordon Start time Last Medication Dose Route Stop Time Status Admin Cefuroxime Sodium 500 MG Q12 11/05 1000 AC 11/06 PO 0933 Ferrous Sulfate 325 MG DAILY 10/26 1000 AC 11/06 PO 0933 Vital Signs & I&O Last 24 Hrs of Vitals and I&O: Vital Signs Date Time Temp Pulse Resp B/P Pulse O2 O2 Flow FiO2 Ox Delivery Rate 11/06 1205 Nasal 1.5L Cannula 11/06 0840 98.1 68 20 96/50 95 Nasal 1.5L Cannula 11/06 0000 Nasal 2.5L Cannula 11/05 2345 97.9 67 20 98/60 97 11/05 1805 Nasal 1.5L Cannula 11/05 1604 97.9 66 20 96/58 97 Nasal 1.5L Cannula Intake & Output 11/06 1600 11/06 0800 11/06 0000 Intake Total Output Total 490 590 Balance -490 -590 Number 1 1 Bowel Movements Output, Chest 40 15 Tube Drainage Output, Urine 450 575 Exam Other Physical Findings: General - awake, extubated HEENT - NCAT Cardiovascular - S1, S2 Lungs - slightly diminished breath sounds Abdomen - soft, bowel sounds positive, no tenderness Extremities - no lower extremity edema Results Last 24 Hrs of Lab Results: Laboratory Tests 11/06/16 0649: Anion Gap 6, Estimated GFR > 60, BUN/Creatinine Ratio 28.0 H, CBC w Diff NO MAN DIFF REQ, RBC 3.06 L, MCV 93.5, MCH 31.2 H, RDW 15.2 H, MPV 7.7, Gran % 63.7, Lymphocytes % 23.4, Monocytes % 12.0 H, Eosinophils % 0.5, Basophils % 0.4, Absolute Granulocytes 3.6, Absolute Lymphocytes 1.3, Absolute Monocytes 0.7 H, Absolute Eosinophils 0, Absolute Basophils 0, PUBS MCHC 33.3 Impression/Plan Impression/Plan Impression/Plan: Impression 81 year old man * Loculated left sided pleural effusion, right sided effusion * airpsace disease consistent with pneumonia secondary to likely streptococcal pneumonia given positive antigen * exudative effusion consistent with empyema vs malignant fluid * Follicular lymphoma * Fatigue, deconditioning * Hydropneumothorax Plan - s/p lytic therapy - We will discuss with Dr. Ku consideration for removal of chest tube - Patient amenable to rehabilitation - + strep pneumo - spo2 goal >88% DVT prophylaxis at all times
--- NOTE | 2016-11-06 15:42 | Event Note ---
Event Note Event Note: left chest pigtail catheter removed. occlusive sterile dressing applied patient tolerated procedure. f/u with Dr Ku
[2016-11-06 16:17] VITALS: BP 102/62
[2016-11-07 00:11] VITALS: BP 94/50
--- NOTE | 2016-11-07 08:22 | PN- Housestaff ---
KRISHNA PRESTON,GAURANG 11/07/16 0822: Subjective Follow-up For: Comment inadequate pneumonia, bilateral hemorrhagic, exudative, loculated pleural effusion status post light therapy and thoracentesis Subjective: Patient overall is doing well today. Complains of cough and bringing up white phlegm. Reports he has been up all night awakening every 2 hours to urinate. denies Chest pain, palpitations, syncope, pain in the back, difficulty in breathing. Review of Systems Constitutional: Reports: see HPI. Objective Last 24 Hrs of Vital Signs/I&O Vital Signs Date Time Temp Pulse Resp B/P Pulse O2 O2 Flow FiO2 Ox Delivery Rate 11/07 0842 98.3 72 18 90/46 97 Nasal 1.5L Cannula 11/07 0011 98.8 70 20 94/50 97 Nasal 1.5L Cannula 11/07 0000 Nasal 1.5L Cannula 11/06 1617 97.8 70 21 102/62 96 Nasal 2.0L Cannula 11/06 1600 Nasal 1.5L Cannula 11/06 1205 Nasal 1.5L Cannula Intake & Output 11/07 1600 11/07 0800 11/07 0000 Intake Total 240 Output Total 600 251 Balance -600 -11 Intake, Oral 240 Output, Stool 1 Output, Urine 600 250 Physical Exam General Appearance: Alert, Oriented X3, Cooperative, No Acute Distress Cardiovascular: Regular Rate, Normal S1, Normal S2, No Murmurs Lungs: bilateral coarse rhonchi present, basilar crackles present, left-sided chest tube removed. Site looks clean, no discharge, no redness Abdomen: Normal Bowel Sounds, Soft, No Tenderness Extremities: No Clubbing, No Cyanosis, No Edema Current Medications: Current Medications Sig/Gordon Start time Last Medication Dose Route Stop Time Status Admin Cefuroxime Sodium 500 MG Q12 11/05 1000 AC 11/06 PO 2100 Ferrous Sulfate 325 MG DAILY 10/26 1000 AC 11/06 PO 0933 Assessment/Plan Assessment: 81-year-old male with past medical history of follicular lymphoma (diag : 2 years ago status post chemotherapy ( last chemotherapy 3 months ago) sent from Dr. Chen's office secondary to sustaining a fall injury. Found to have loculated left sided pleural effusion, right sided effusion s/p pleural cath with alteplase infusion. CT was negative for PE. plan #1 Community-acquired pneumonia. * Urine cultures were positive for strep pneumonia antigen. * Continue po ceftin for total of 21 days. * No growth on blood cultures so far * Continue to monitor oxygen and taper saturations keeping it above 92% of the time. #2 Bilateral pleural effusion, left-sided loculated infusion status post thoracocentesis and lytic therapy + chest tube placement, empyema. * Patient had a thoracocentesis 10/28/16 and revision 10/29/16 and pleural fluid was sent for analysis and cytology, which was negative for malignancy. * Pleural fluid was noted to be exudative in nature consistent with empyema, recieved lytic therapy X 4 Chest tube was removed yesterday. Patient doing well today. #3 History of Follicular Lymphoma. * status post 6 cycles of chemotherapy last one being 6 months ago. * Stable. #4 History of Anemia. * Continue iron supplementation #5 Physical Therapy * Patient recommended to walk with physical therapy. He agreed to do it while he is in rehabilitation. FC DVt Px : ALPS Problem List: 1. Empyema 2. Pneumonia Pain Ratin Pain Location: none Pain Goal: none Pain Plan: not on meds Tomorrow's Labs & Rationales: Poss d/c today, hence no medication AGAPITO PRESTON,LINDA 11/07/16 1120: Attending MD Review Statement Attending Statement Attending MD Statement: examined this patient, discuss w/resident/PA/SUPERVISOR SAMPLE, agreed w/resident/PA/SUPERVISOR SAMPLE, reviewed EMR data (avail), discussed with nursing, discussed with case mgmt, reviewed images, amended to note Attending Assessment/Plan: Patient seen and examined, offers no complaints. Chest tube was discontinued yesterday. He denies any current complaints. He denies any shortness of breath. Currently getting treated with open antibiotics and awaiting placement in a rehabilitation. If there is a bed available today and patient can be discharged to rehabilitation.
[2016-11-07 08:42] VITALS: BP 90/46
--- NOTE | 2016-11-07 10:13 | PN- Pulmonary ---
Subjective HPI/Critical Care Issues: Patient seen and examined. No chest pain, dyspnea is stable primarily on exertion. The catheter has been removed. No nausea, vomiting, diarrhea or constipation. Afebrile and hemodynamically stable. Objective Current Medications: Current Medications Sig/Gordon Start time Last Medication Dose Route Stop Time Status Admin Cefuroxime Sodium 500 MG Q12 11/05 1000 AC 11/06 PO 2100 Ferrous Sulfate 325 MG DAILY 10/26 1000 AC 11/06 PO 0933 Vital Signs & I&O Last 24 Hrs of Vitals and I&O: Vital Signs Date Time Temp Pulse Resp B/P Pulse O2 O2 Flow FiO2 Ox Delivery Rate 11/07 0842 98.3 72 18 90/46 97 Nasal 1.5L Cannula 11/07 0011 98.8 70 20 94/50 97 Nasal 1.5L Cannula 11/07 0000 Nasal 1.5L Cannula 11/06 1617 97.8 70 21 102/62 96 Nasal 2.0L Cannula 11/06 1600 Nasal 1.5L Cannula 11/06 1205 Nasal 1.5L Cannula Intake & Output 11/07 1600 11/07 0800 11/07 0000 Intake Total 240 Output Total 600 251 Balance -600 -11 Intake, Oral 240 Output, Stool 1 Output, Urine 600 250 Exam Other Physical Findings: General - awake, extubated HEENT - NCAT Cardiovascular - S1, S2 Lungs - slightly diminished breath sounds Abdomen - soft, bowel sounds positive, no tenderness Extremities - no lower extremity edema Impression/Plan Impression/Plan Impression/Plan: Impression 81 year old man * Improved Loculated left sided pleural effusion, right sided effusion * Improved strep pneumonia * Follicular lymphoma * Fatigue, deconditioning * Hydropneumothorax Plan - s/p lytic therapy with removal of catheter - Patient amenable to rehabilitation - spo2 goal >88% - DC planning with reimaging in the future DVT prophylaxis at all times
[2016-11-07 15:45] VITALS: BP 98/52
[2016-11-07 16:35] VITALS: BP 98/52
[2016-11-07 16:37] VITALS: BP 98/52
== END 2016-11-07 16:30 | DRG 193 ==
LOC: ERH 11:08 → ENPENDDIS 14:38 → 2NB 14:38 → 1NO 14:38 → 2NA 14:38 → ERHI 14:38 → 2NA 19:48 → 1NO 10-28 00:02 → 2NB 11-01 19:44
PROVIDERS: Internal Medicine; Internal Medicine Cardiovascular Disease; Physician Assistant; Radiology Diagnostic Radiology; ADMIT Internal Medicine
PROC: 0W9B30Z Drainage of Left Pleural Cavity with Drainage Device, Percutaneous Approach (ICD-10-PCS; principal; 2016-10-28)
PROC: 0W9B30Z Drainage of Left Pleural Cavity with Drainage Device, Percutaneous Approach (ICD-10-PCS; 2016-10-29)
DX: J13 Pneumonia due to Streptococcus pneumoniae (principal); J86.9 Pyothorax without fistula; E46 Unspecified protein-calorie malnutrition; C82.90 Follicular lymphoma, unspecified, unspecified site; D64.9 Anemia, unspecified; E87.1 Hypo-osmolality and hyponatremia; Z68.1 Body mass index [BMI] 19.9 or less, adult
CPT/HCPCS: 1NP; 2NASP; 2NBP; 87075; 36415; 75984; 81001; 82436; 87040; 87070; 87086; 87449; 87450; 87804; 87804-59; 88305; 93005; 93010; 93306; 96374; 97001-GP; 97110-GO; 97116-GO; 97161-GP; 97530-GO; J0456; J0696; J0713; J1650; J2997; J3370; J7040; J7042